=== PATIENT | female | born 1940 ===

== ENCOUNTER 2020-09-11 08:41 | Outpatient (REF) | payer MEDICARE, SELFPAY ==
[2020-09-11 10:25] LABS: MANUAL DIFF FLAG NO
[2020-09-11 10:35] LABS: Basophils Absolute Auto 0.1 X10*3/uL (0.0-0.2); Basophils Percent Auto 1.4 % (0-2); Eosinophils Absolute Auto 0.6 X10*3/uL (0.0-0.4); Eosinophils Percent Auto 12.4 % (0-4); Hemoglobin 11.4 g/dl (12.0-16.0); Imm Gran Abs Auto 0.02 X10*3/uL (0.00-0.03); Imm Gran Pct Auto 0.4 % (0.0-0.4); Lymphocytes Absolute Auto 1.2 X10*3/uL (1.2-4.9); Lymphocytes Percent Auto 23.8 % (20-40); Mean Corpuscular HGB Conc 31.7 g/dl (31.0-35.0); Mean Corpuscular Hemoglobin 31.7 pg (27.0-33.0); Mean Platelet Volume 9.7 fL (9.4-12.3); Monocytes Absolute Auto 0.4 X10*3/uL (0.1-1.2); Monocytes Percent Auto 8.1 % (2-11); Neutrophils Absolute Auto 2.8 X10*3/uL (2.0-8.3); Neutrophils Percent Auto 53.9 % (45-73); Platelet Count 350 X10*3/uL (160-400); Red Cell Distribution Width 14.2 % (11.0-16.0); White Blood Count 5.1 X10*3/uL (4.8-10.8)
[2020-09-11 11:05] LABS: Glucose Urine UA NEG (NEG); Leukocyte Esterase Urine 1+ (NEG); Nitrite Urine NEG (NEG); Urine Blood TRACE (NEG); Urine Ketones NEG (NEG); Urine Protein NEG (NEG-TRACE)
[2020-09-11 11:12] LABS: Appearance Urine HAZY; Color Urine YELLOW
[2020-09-11 11:20] LABS: Alanine Aminotransferase 25 U/L (0-31); Albumin Level 4.2 g/dL (3.5-5.0); Alkaline Phosphatase 65 U/L (39-117); Anion Gap 14 (12-20); Aspartate Amino Transferase 26 U/L (5-31); Bilirubin Total 0.5 mg/dL (0.0-1.0); Blood Urea Nitrogen 28 mg/dL (9-16); Calcium 9.1 mg/dL (8.4-10.2); Carbon Dioxide 25 mmol/L (22-29); Chloride 106 mmol/L (96-108); Cholesterol 171 mg/dL; Estimated Glomerular Filt Rate 55; Glucose Random 103 mg/dL (60-115); HDL Cholesterol 72 mg/dL; LDL Cholesterol Calculated 81 mg/dl; Potassium 4.4 mmol/L (3.3-5.1); Sodium 141 mmol/L (135-145); Total Protein 7.1 g/dL (6.5-8.0); Triglycerides 92 mg/dL
[2020-09-11 11:22] LABS: Bacteria Urine 4+ /LPF; RBC Urine 0-2 /HPF (0); Squamous Epithelial Cell Urine TRACE /LPF
[2020-09-11 11:29] LABS: Free T4 (Free Thyroxine) 0.98 ng/dL (0.71-1.85); Thyroid Stimulating Hormone 1.39 uIU/mL (0.32-4.0); Vitamin D 25-OH Total 39.6 ng/mL (>30)
[2020-09-11 12:01] LABS: Folate 17.6 ng/mL (> or = 4.0); Vitamin B12 373 pg/mL (200-900)
[2020-09-12 05:32] LABS: CA-125 8 U/mL (<35)
== END 2020-09-11 08:42 | disposition home or self-care (01) ==
LOC: HO.10HDL 08:41
PROVIDERS: Absent Provider Obstetrics & Gynecology; Visit Provider Internal Medicine
DX: I10 Essential (primary) hypertension (principal); E78.00 Pure hypercholesterolemia, unspecified; Z80.41 Family history of malignant neoplasm of ovary
CPT/HCPCS: 36415; 80053; 80061; 81001; 82306; 82607; 82746; 84439; 84443; 85025; 86304

== ENCOUNTER 2021-02-12 09:25 | Outpatient (REF) | payer MEDICARE, SELFPAY ==
--- NOTE | ~2021-02-12 | MM_ITS ---
EXAMINATION: BONE DENSITOMETRY CLINICAL INDICATION: Asymptomatic menopausal state. COMPARISON: Previous BD dated 08/04/2017 and baseline BD dated 07/16/2005. TECHNIQUE: Using a [employer] DXA System (software version: 13.1) manufactured by [employer], dual-energy x-ray absorptiometry was performed of the lumbar spine and left hip. The images are of good technical quality. Summary results are attached. FINDINGS: AP SPINE L3-L4 (excluding L1 and L2): The data of L1-L4 has been changed to exclude the L1 and L2 vertebral bodies, because degenerative changes at these levels may cause overestimation of lumbar spine density. Current: BMD 1.433 g/cm2, Z-score 3.6, T-score 1.9, normal, 2.5% decrease from previous, 5.8% increase from baseline (<5% change is not significant). Prior: BMD 1.469 g/cm2. Baseline: BMD 1.354 g/cm2. LEFT FEMUR, NECK: Current: BMD 0.773 g/cm2, Z-score 0.2, T-score -1.9, osteopenia. Prior: BMD 0.779 g/cm2. Baseline: BMD 0.885 g/cm2. LEFT FEMUR, TOTAL: Current: BMD 0.841 g/cm2, Z-score 0.6, T-score -1.3, osteopenia, 3.2% decrease from previous, 9.1% decrease from baseline (<5% change is not significant). Prior: BMD 0.869 g/cm2. Baseline: BMD 0.925 g/cm2. IDENTIFIED RISK FACTORS: Menopause, height loss. HISTORY OF FRACTURE: None listed. MEDICATIONS: Vitamin D. MM/XR DEXA axial skeleton IMPRESSION: 1. DIAGNOSIS: Osteopenia based on the lowest T-score value of -1.9 in the femoral neck applying World Health Organization criteria. 2. 10-YEAR FRACTURE RISK PREDICTION, FRAX: Major osteoporotic fracture (clinical spine, forearm, hip or shoulder) 15.7%. Hip fracture 4.5%. 3. Treatment Recommendations: NOF guidelines recommend consideration for treatment in postmenopausal women and men age 50 and older presenting with the following: -A hip or vertebral (clinical or morphometric) fracture. -T-score less than or equal to -2.5 at the femoral neck or spine after appropriate evaluation to exclude secondary causes. -Low bone mass at the hip or spine and a 10-year fracture probability by FRAX of greater than or equal to 3% for hip fracture or greater than or equal to 20% for major osteoporotic fracture based on the [place] adapted WHO algorithm. 4. Other Recommendations: All treatment decisions require clinical judgment and consideration of individual patient factors, including patient preferences, comorbidities, previous drug use, risk factors not captured in the FRAX model (e.g. frailty, falls, vitamin D deficiency, increased bone turnover, interval significant decline in bone density) and possible under or overestimation of fracture risk by FRAX. Additional medical evaluation for secondary cause of low bone mineral density may be appropriate. FUTURE SCAN RECOMMENDATION: People with diagnosed cases of osteoporosis or at high risk for fracture should have regular bone mineral density tests. For patients eligible for Medicare, routine testing is allowed once every 2 years. The testing frequency can be increased to one year for patients who have rapidly progressing disease, those who are receiving or discontinuing medical therapy to restore bone mass, or have additional risk factors.
== END 2021-02-12 09:26 | disposition home or self-care (01) ==
LOC: HO.MAMMO 09:25
PROVIDERS: PCP Internal Medicine; Visit Provider Nurse Practitioner Family
DX: Z13.820 Encounter for screening for osteoporosis (principal); M81.0 Age-related osteoporosis without current pathological fracture; Z78.0 Asymptomatic menopausal state; Z79.899 Other long term (current) drug therapy
CPT/HCPCS: 77080

== ENCOUNTER 2021-04-07 08:03 | Outpatient (REF) | payer MEDICARE, SELFPAY ==
[2021-04-07 10:33] LABS: Appearance Urine HAZY; Color Urine YELLOW; Glucose Urine UA NEG (NEG); Leukocyte Esterase Urine 1+ (NEG); Nitrite Urine NEG (NEG); PH 5.5 (5.0-8.0); Specific Gravity - Urine 1.025 (1.005-1.025); Urine Blood TRACE (NEG); Urine Ketones NEG (NEG); Urine Protein NEG (NEG-TRACE)
[2021-04-07 10:35] LABS: Hematocrit 36.2 % (37-47); Hemoglobin 11.5 g/dl (12.0-16.0); Mean Corpuscular HGB Conc 31.8 g/dl (31.0-35.0); Mean Corpuscular Hemoglobin 31.9 pg (27.0-33.0); Mean Corpuscular Volume 100.6 fL (80-98); Mean Platelet Volume 9.9 fL (9.4-12.3); Platelet Count 382 X10*3/uL (160-400); Red Cell Distribution Width 14.4 % (11.0-16.0); White Blood Count 6.1 X10*3/uL (4.8-10.8)
[2021-04-07 10:50] LABS: Bacteria Urine 4+ /LPF; RBC Urine 0-2 /HPF (0); Squamous Epithelial Cell Urine TRACE /LPF; WBC Urine 50-75 /HPF (0-4)
[2021-04-07 11:25] LABS: Alanine Aminotransferase 23 U/L (0-31); Albumin Level 4.3 g/dL (3.5-5.0); Alkaline Phosphatase 69 U/L (39-117); Anion Gap 14 (12-20); Aspartate Amino Transferase 23 U/L (5-31); Bilirubin Total 0.5 mg/dL (0.0-1.0); Blood Urea Nitrogen 31 mg/dL (9-16); Carbon Dioxide 24 mmol/L (22-29); Chloride 108 mmol/L (96-108); Cholesterol 176 mg/dL; Estimated Glomerular Filt Rate 50; Glucose Fasting 109 mg/dL (60-99); HDL Cholesterol 79 mg/dL; LDL Cholesterol Calculated 83 mg/dl; Potassium 4.6 mmol/L (3.3-5.1); Sodium 141 mmol/L (135-145); Total Protein 7.3 g/dL (6.5-8.0); Triglycerides 73 mg/dL
== END 2021-04-07 08:04 | disposition home or self-care (01) ==
LOC: HO.10HDL 08:03
PROVIDERS: Internal Medicine; Visit Provider Nurse Practitioner Family
DX: Z13.1 Encounter for screening for diabetes mellitus (principal); E78.00 Pure hypercholesterolemia, unspecified; I10 Essential (primary) hypertension
CPT/HCPCS: 36415; 80053; 80061; 81001; 85027

== ENCOUNTER 2021-04-17 10:22 | Outpatient (REF) | payer MEDICARE, SELFPAY ==
--- NOTE | ~2021-04-17 | XR_ITS ---
EXAMINATION: XR CHEST CLINICAL INFORMATION: Shortness of breath COMPARISON: Previous chest x-ray most recent June 2016 TECHNIQUE: 2 views of the chest were obtained. FINDINGS: The cardiac and mediastinal contours are normal. There is minimal scarring or subsegmental atelectasis in the right middle lobe. The lungs are otherwise clear. There is no pleural effusion or pneumothorax. There are degenerative changes of the spine. XR/XR chest 2V IMPRESSION: No evidence for acute disease in the chest.
--- NOTE | 2021-04-17 10:29 | ECG_ITS ---
Test Reason : sob Blood Pressure : / mmHG Vent. Rate : 095 BPM Atrial Rate : 095 BPM P-R Int : 146 ms QRS Dur : 080 ms QT Int : 342 ms P-R-T Axes : 062 060 103 degrees QTc Int : 429 ms Normal sinus rhythm Nonspecific ST abnormality Inferior leads Lateral leads Abnormal ECG When compared with ECG of 02-APR-2015 14:17, ST more depressed Inferior leads Lateral leads Referred By: Lucas Moore Electronically Signed By:DYLAN CHAVEZ MD
== END 2021-04-17 10:23 | disposition home or self-care (01) ==
LOC: HO.XRAY 10:22
PROVIDERS: PCP Internal Medicine; Visit Provider Internal Medicine
DX: R06.02 Shortness of breath (principal)
CPT/HCPCS: 71046; 93005

== ENCOUNTER 2021-04-24 09:38 | Outpatient (REF) | payer MEDICARE, SELFPAY ==
--- NOTE | 2021-04-24 | PFT_ITS ---
Forced vital capacity, FEV1, [id number], and MVV are normal. Post bronchodilator therapy, there is no significant change. Total lung capacity and residual volume normal. Diffusion capacity normal. CONCLUSION: Normal pulmonary function test. MD JEFF Romero/MODL / [id number]
== END 2021-04-24 09:39 | disposition home or self-care (01) ==
LOC: HO.RESP 09:38
PROVIDERS: PCP Internal Medicine; Visit Provider Internal Medicine
DX: R06.02 Shortness of breath (principal)
CPT/HCPCS: 94060; 94727; 94729

== ENCOUNTER → 2021-08-03 13:45 | Outpatient (BNVA) | payer MEDICARE, SELFPAY | PROVIDERS: PCP Internal Medicine; Referring Provider Internal Medicine; Visit Provider Internal Medicine Cardiovascular Disease | DX: R06.02 Shortness of breath (principal); I10 Essential (primary) hypertension | CPT/HCPCS: 93005; 99202 ==

== ENCOUNTER 2021-08-06 10:40 | Outpatient (REF) | payer MEDICARE, SELFPAY ==
[2021-08-07 09:01] LABS: CA-125 10 U/mL (<35)
== END 2021-08-06 10:41 | disposition home or self-care (01) ==
LOC: HO.10HDL 10:40
PROVIDERS: Absent Provider Internal Medicine; Visit Provider Obstetrics & Gynecology
DX: Z85.43 Personal history of malignant neoplasm of ovary (principal)
CPT/HCPCS: 36415; 86304

== ENCOUNTER → 2021-09-16 08:29 | Outpatient (REF) | payer MEDICARE, SELFPAY ==
--- NOTE | 2021-09-16 08:31 | CA_ITS ---
Transthoracic Echocardiogram Patient (Last, First, Middle): Diana Hemphill G Gender: Female Date of : 1940 Age: 80 Procedure Date: 09/16/2021 Procedure Type: Transthoracic Echocardiogram Location: OP Height: 170.18 cm Weight: 68.95 kg BSA: 1.80 m2 Heart Rate: bpm BP: 150 / 70 mmHg Rating Officer: DELTA Referring MD: Juventino Peck MD Symptoms: R06.02 - Shortness of breath Study Quality: Fair Conclusions: - Normal left ventricular size, thickness, systolic function, and wall motion. The visually estimated ejection fraction is between 60-65%. - E/E prime ratio is between 8 and 15 consistent with indeterminate filling pressures. - Normal right ventricular cavity size and systolic function. Findings Left Ventricle Normal left ventricular size, thickness, systolic function, and wall motion. The visually estimated ejection fraction is between 60-65%. There is no evidence of regional wall motion abnormalities. Abnormal diastolic function is noted. Spectral Doppler is indicative of an impaired relaxation filling pattern. E/E prime ratio is between 8 and 15 consistent with indeterminate filling pressures. Right Ventricle Normal right ventricular cavity size and systolic function. Atria Both atria are normal in size. Aortic Valve Normal aortic valve structure and function. There is no aortic valve stenosis. There is no aortic valve regurgitation. Mitral Valve Normal mitral valve structure and function. There is no mitral valve regurgitation. There is no mitral valve stenosis. Pulmonic Valve The pulmonic valve is likely normal. There is no pulmonic valve regurgitation. Tricuspid Valve Normal tricuspid valve structure and function. There is trace tricuspid valve regurgitation. Normal right atrial pressure. There is no evidence of pulmonary hypertension. Great Vessels All visible segments of the aorta are normal in size. The visualized portions of the pulmonary artery and branches are normal. Venous The inferior vena cava is normal in size and collapses greater than 50% with inspiration. Pericardium/Pleural There is no evidence of pericardial effusion. Measurements 2D Linear Measurements IVSd: 0.76 0.6-0.9/0.6-1.0 cm LVIDd: 5.14 3.9-5.3/4.2-5.9 cm LVIDd Index: 2.86 2.4-3.2/2.2-3.1 cm/m2 LVIDs: 3.14 2.0-3.6 cm LVPWd: 0.78 0.7-1.1 cm LA Diam: 3.70 2.7-3.8/3.0-4.0 cm LAIDs Index: 2.06 1.5-2.3 cm/m2 LV Mass: 168.35 67-162/88-224 g LV Mass Index: 93.53 43-95/49-115 g/m2 LVOT Diam: 2.00 3.0+(-)1.3 cm 2D Systolic Function EF 4C: 63.00 >55% EF 2C: 69.20 >55% EF BiP: 65.90 >55% Mitral Valve MV Pk E: 0.99 MV PK A: 1.27 MV Decel Time: 227.00 E/A: 0.80 E'Lateral: 9.03 E'Medial: 6.42 E/E' Med: 15.50 E/E' Lat: 11.00 PHT: 67.00 MVA PHT: 3.28 Decel [place]: 4.36 Aortic Valve AoV Pk Harjinder: 1.40 AoV Mn Harjinder: 1.03 AoV VTI: 0.37 AoV Pk Grad: 8.00 Aov Mn Grad: 5.00 SALLIE Cont.VTI: 2.05 LVOT LVOT Pk Harjinder: 0.82 LVOT Mn Harjinder: 0.64 LVOT VTI: 0.24 LVOT Pk Grad: 3.00 LVOT Mn Grad: 2.00 LVOT Diam: 2.00 LVOT Area: 3.14 Diastolic Function MV Pk E: 0.99 MV Pk A: 1.27 E/A: 0.80 E'Medial: 6.42 E/E' Med: 15.50 E' Laterial: 9.03 E/E' Lat: 11.00 Right Ventricle TAPSE (mm): 22.70 TVS' Harjinder: 13.90 Tricuspid Valve TR Pk Harjinder: 2.66 TR Pk Grad: 28.00 RA Press: 3.00 RVSP: 31.00 Great Vessels Aorta Sinus of Valsalva: 2.96 2.0-3.[address] [place]: 1.99 1.7-3.4 cm Ao Asc: 2.80 2.1-3.4 cm Ao Arch: 3.00 Updated in Other Vendor System with Status of Final Juventino Peck MD electronically signed on 09/16/2021 2:15:45 PM with status of Final
== END ==
LOC: HO.CARD 08:29
PROVIDERS: PCP Internal Medicine; Visit Provider Internal Medicine Cardiovascular Disease
DX: R06.02 Shortness of breath (principal); I10 Essential (primary) hypertension
CPT/HCPCS: 93306; 99212

== ENCOUNTER → 2021-10-06 07:53 | Outpatient (REF) | payer MEDICARE, SELFPAY ==
--- NOTE | ~2021-10-06 | NM_ITS ---
EXERCISE MYOCARDIAL PERFUSION STUDY INDICATION: Shortness of breath, assess for ischemia TECHNIQUE: The patient was brought in for an exercise perfusion study on 10/06/2021. Patient performed exercise as per Kristian protocol and was injected 25 mCi of sestamibi once target heart rate was achieved. Images were obtained using the SPECT gamma camera interlaced with the gating device. Images were obtained in supine position. Resting perfusion study was performed on 10/07/2021. Patient was administered 25 mCi of sestamibi intravenously at rest. Images were then obtained in supine position. Total DLP 77mGy-cm. Images were processed with the software and compared side to side in short axis, horizontal long axis and vertical long axis views. FINDINGS: Raw images were reviewed. The stress perfusion study showed no significant perfusion abnormality. Both uncorrected as well as CT attenuation corrected images were reviewed. The gated study shows normal LV systolic function with calculated LVEF of 67%. LV cavity is normal in size. The gated study shows normal wall thickening and contraction of segments. Resting study shows no significant perfusion abnormality. Gating at rest reveals normal wall motion with ejection fraction at 62%. The findings are consistent with no reversible or fixed perfusion abnormality. NM/NM cardiolite stress test IMPRESSION: 1. Myocardial perfusion imaging study shows normal myocardial perfusion. No evidence of any ischemia or infarction. 2. Gated LVEF is 67% during stress and 62% during rest. 3. Transient ischemic dilatation not present. EKG component of the test reported separately.
--- NOTE | 2021-10-06 07:56 | CA_ITS ---
Acquisition Time: 2021-10-06 07:55:31 Total Exercise Time: 00:05:01 Test Indications: Dyspnea Medications: AMLODIPINE ASA CARVEDILOL HCTZ VIT D LISINOPRIL ROSUVASTATIN Protocol: NICK Max HR: 141 BPM 100% of Pred: 140 BPM Max BP: 158/072 mmHG Max Work Load: 4.6 METS Exercise stress test with exercise 5 min 1 sec of Nick stage ( stage held due to inability to walk at faster pace and heart rate > 95% MPHR) with mild to moderate shortness of breath, no chest discomfort, with isolated PVC, with normotensive response to exercise, with EKG changes eeting criteria for ischemia: horizontal ST depression inferiorly and V4-V6 which corrects quickly in recovery and returns to baseline downsloping ST V4-V6. Breathing normalized with rest. Nuclear images pending. Test reviewed with Dr Lomas. Referred By: Juventino Peck Overread By: SABA RICHMOND
== END ==
LOC: HO.CARD 07:53
PROVIDERS: PCP Internal Medicine; Visit Provider Internal Medicine Cardiovascular Disease
DX: R06.02 Shortness of breath (principal)
CPT/HCPCS: 78452; 93017; A9500

== ENCOUNTER 2021-10-22 08:35 | Outpatient (REF) | payer MEDICARE, SELFPAY ==
[2021-10-22 08:59] LABS: MANUAL DIFF FLAG NO
[2021-10-22 09:20] LABS: Basophils Absolute Auto 0.1 X10*3/uL (0.0-0.2); Basophils Percent Auto 1.2 % (0-2); Eosinophils Absolute Auto 0.3 X10*3/uL (0.0-0.4); Eosinophils Percent Auto 5.1 % (0-4); Hematocrit 35.1 % (37.0-47.0); Hemoglobin 11.3 g/dl (12.0-16.0); Imm Gran Abs Auto 0.01 X10*3/uL (0.00-0.03); Imm Gran Pct Auto 0.2 % (0.0-0.4); Lymphocytes Absolute Auto 1.6 X10*3/uL (1.2-4.9); Lymphocytes Percent Auto 25.7 % (20-40); Mean Corpuscular HGB Conc 32.2 g/dl (31.0-35.0); Mean Corpuscular Hemoglobin 31.6 pg (27.0-33.0); Mean Platelet Volume 9.3 fL (9.4-12.3); Monocytes Absolute Auto 0.6 X10*3/uL (0.1-1.2); Monocytes Percent Auto 9.7 % (2-11); Neutrophils Absolute Auto 3.5 x10*3/uL (2.0-8.3); Neutrophils Percent Auto 58.1 % (45-73); Platelet Count 333 X10*3/uL (160-400); Red Blood Count 3.58 X10*6/uL (4.20-5.50); Red Cell Distribution Width 14.9 % (11.0-16.0); White Blood Count 6.1 X10*3/uL (4.8-10.8)
[2021-10-22 09:51] LABS: Anion Gap 14 (12-20); Blood Urea Nitrogen 29 mg/dL (9-16); Calcium 9.2 mg/dL (8.4-10.2); Carbon Dioxide 23 mmol/L (22-29); Chloride 107 mmol/L (96-108); Estimated Glomerular Filt Rate > 60; Glucose Random 119 mg/dL (60-115); Potassium 5.1 mmol/L (3.3-5.1); Sodium 139 mmol/L (135-145)
== END 2021-10-22 08:36 | disposition home or self-care (01) ==
LOC: HO.LAB 08:35
PROVIDERS: PCP Internal Medicine; Visit Provider Internal Medicine Cardiovascular Disease
DX: R06.02 Shortness of breath (principal)
CPT/HCPCS: 36415; 80048; 85025

== ENCOUNTER → 2021-11-19 13:25 | Outpatient (BNVA) | payer MEDICARE, SELFPAY | PROVIDERS: PCP Internal Medicine; Referring Provider Internal Medicine; Visit Provider Nurse Practitioner Family | DX: R06.02 Shortness of breath (principal); I10 Essential (primary) hypertension; I25.10 Atherosclerotic heart disease of native coronary artery without angina pectoris; E78.00 Pure hypercholesterolemia, unspecified; Z98.890 Other specified postprocedural states | CPT/HCPCS: Q3014 ==

== ENCOUNTER 2021-12-22 11:44 | Outpatient (REF) | payer MEDICARE, SELFPAY ==
[2021-12-22 13:46] LABS: MANUAL DIFF FLAG NO
[2021-12-22 13:49] LABS: Basophils Percent Auto 0.4 % (0-2); Eosinophils Absolute Auto 0.8 X10*3/uL (0.0-0.4); Eosinophils Percent Auto 10.2 % (0-4); Hematocrit 37.9 % (37.0-47.0); Imm Gran Abs Auto 0.04 X10*3/uL (0.00-0.03); Imm Gran Pct Auto 0.5 % (0.0-0.4); Lymphocytes Absolute Auto 0.7 X10*3/uL (1.2-4.9); Lymphocytes Percent Auto 9.4 % (20-40); Mean Corpuscular HGB Conc 31.7 g/dl (31.0-35.0); Mean Corpuscular Hemoglobin 31.4 pg (27.0-33.0); Mean Corpuscular Volume 99.2 fL (80.0-98.0); Mean Platelet Volume 10.4 fL (9.4-12.3); Monocytes Absolute Auto 0.4 X10*3/uL (0.1-1.2); Monocytes Percent Auto 5.7 % (2-11); Neutrophils Absolute Auto 5.5 x10*3/uL (2.0-8.3); Neutrophils Percent Auto 73.8 % (45-73); Platelet Count 279 X10*3/uL (160-400); Red Blood Count 3.82 X10*6/uL (4.20-5.50); Red Cell Distribution Width 14.9 % (11.0-16.0); White Blood Count 7.5 X10*3/uL (4.8-10.8)
[2021-12-22 14:20] LABS: Anion Gap 13 (12-20); Blood Urea Nitrogen 55 mg/dL (9-16); Calcium 8.9 mg/dL (8.4-10.2); Carbon Dioxide 22 mmol/L (22-29); Chloride 105 mmol/L (96-108); Estimated Glomerular Filt Rate 45; Glucose Random 127 mg/dL (60-115); Potassium 4.4 mmol/L (3.3-5.1); Sodium 136 mmol/L (135-145)
== END 2021-12-22 11:45 | disposition home or self-care (01) ==
LOC: HO.10HDL 11:44
PROVIDERS: Visit Provider Nurse Practitioner Family
DX: I10 Essential (primary) hypertension (principal); T78.40XA Allergy, unspecified, initial encounter
CPT/HCPCS: 36415; 80048; 85025

== ENCOUNTER 2021-12-29 10:14 | Outpatient (REF) | payer MEDICARE, SELFPAY ==
[2021-12-31 09:27] LABS: Lyme Abs Screen <0.90 index
== END 2021-12-29 10:15 | disposition home or self-care (01) ==
LOC: HO.10HDL 10:14
PROVIDERS: Visit Provider Nurse Practitioner Family
DX: R21 Rash and other nonspecific skin eruption (principal)
CPT/HCPCS: 36415; 86617; 86618

== ENCOUNTER 2022-01-19 09:22 | Outpatient (REF) | payer MEDICARE, SELFPAY ==
[2022-01-19 10:51] LABS: Appearance Urine CLEAR; Color Urine YELLOW; Glucose Urine UA NEG (NEG); Leukocyte Esterase Urine 1+ (NEG); Nitrite Urine NEG (NEG); Urine Blood NEG (NEG); Urine Ketones NEG (NEG); Urine Protein NEG (NEG-TRACE)
[2022-01-19 10:53] LABS: Basophils Percent Auto 0.6 % (0-2); Eosinophils Absolute Auto 1.6 X10*3/uL (0.0-0.4); Eosinophils Percent Auto 24.5 % (0-4); Hematocrit 35.9 % (37.0-47.0); Hemoglobin 11.5 g/dl (12.0-16.0); Imm Gran Abs Auto 0.02 X10*3/uL (0.00-0.03); Imm Gran Pct Auto 0.3 % (0.0-0.4); Lymphocytes Percent Auto 15.6 % (20-40); MANUAL DIFF FLAG SCAN; Mean Corpuscular Hemoglobin 32.2 pg (27.0-33.0); Mean Corpuscular Volume 100.6 fL (80.0-98.0); Mean Platelet Volume 9.8 fL (9.4-12.3); Monocytes Absolute Auto 0.5 X10*3/uL (0.1-1.2); Monocytes Percent Auto 7.1 % (2-11); Neutrophils Absolute Auto 3.4 x10*3/uL (2.0-8.3); Neutrophils Percent Auto 51.9 % (45-73); Platelet Count 350 X10*3/uL (160-400); Red Blood Count 3.57 X10*6/uL (4.20-5.50); Red Cell Distribution Width 15.9 % (11.0-16.0); SCAN SMEAR FLAG 1; White Blood Count 6.5 X10*3/uL (4.8-10.8)
[2022-01-19 11:28] LABS: Renal Epithelial Cells Urine TRACE /LPF; Squamous Epithelial Cell Urine 1+ /LPF
[2022-01-19 11:29] LABS: WBC Urine 0-2 /HPF (0-4)
[2022-01-19 11:30] LABS: Granular Casts Urine 0-2 /LPF
[2022-01-19 11:31] LABS: Bacteria Urine TRACE /LPF; Hyaline Casts Urine 0-2 /LPF
[2022-01-19 11:45] LABS: Erythrocyte Sedimentation Rate 13 MM/HR (0-20)
[2022-01-19 11:48] LABS: SLIDE REVIEW VERIFIED
[2022-01-19 11:51] LABS: Alanine Aminotransferase 19 U/L (0-31); Albumin Level 3.9 g/dL (3.5-5.0); Alkaline Phosphatase 63 U/L (39-117); Anion Gap 13 (12-20); Aspartate Amino Transferase 21 U/L (5-31); Bilirubin Total 0.4 mg/dL (0.0-1.0); Blood Urea Nitrogen 29 mg/dL (9-16); Calcium 8.7 mg/dL (8.4-10.2); Carbon Dioxide 21 mmol/L (22-29); Chloride 109 mmol/L (96-108); Estimated Glomerular Filt Rate 59; Glucose Random 100 mg/dL (60-115); Potassium 4.4 mmol/L (3.3-5.1); Sodium 139 mmol/L (135-145); Total Protein 6.4 g/dL (6.5-8.0)
== END 2022-01-19 09:23 | disposition home or self-care (01) ==
LOC: HO.10HDL 09:22
PROVIDERS: Visit Provider Dermatology
DX: T88.7XXA Unspecified adverse effect of drug or medicament, initial encounter (principal); Z79.899 Other long term (current) drug therapy
CPT/HCPCS: 36415; 80053; 81001; 85025; 85652

== ENCOUNTER 2022-04-21 09:14 | Outpatient (REF) | payer MEDICARE, SELFPAY ==
[2022-04-21 12:05] LABS: Blood Urea Nitrogen 45 mg/dL (9-16); Estimated Glomerular Filt Rate 44
[2022-04-21 12:06] LABS: Free T4 (Free Thyroxine) 0.99 ng/dL (0.71-1.85); Thyroid Stimulating Hormone 0.59 uIU/mL (0.32-4.0)
[2022-04-23 22:16] LABS: Prot Elec - Albumin 3.7 g/dL (3.8-4.8); Prot Elec - Alpha1 0.4 g/dL (0.2-0.3); Prot Elec - Alpha2 0.8 g/dL (0.5-0.9); Prot Elec - Beta 1 0.4 g/dL (0.4-0.6); Prot Elec - Beta 2 0.5 g/dL (0.2-0.5); Prot Elec - Total Protein 6.8 g/dL (6.1-8.1)
[2022-04-27 14:48] LABS: IgA 415 mg/dL (70-320); IgG 1129 mg/dL (600-1540); IgM 88 mg/dL (50-300)
== END 2022-04-21 09:15 | disposition home or self-care (01) ==
LOC: HO.10HDL 09:14
PROVIDERS: Absent Provider Internal Medicine; Visit Provider Dermatology
DX: Z13.89 Encounter for screening for other disorder (principal)
CPT/HCPCS: 36415; 82565; 82784; 84165; 84439; 84443; 84520; 86334

== ENCOUNTER 2022-04-22 08:22 | Inpatient (IN) | payer MEDICARE, SELFPAY ==
[2022-04-22] VITALS (18 sets, daily range): BP systolic 135–196; BP diastolic 51–110; PULSE 66–108; RESP 13–19; TEMP 36.6–36.9; O2SAT 93–98; BMI 11.2
--- NOTE | ~2022-04-22 | MR_ITS ---
MRI OF THE BRAIN WITHOUT IV CONTRAST INDICATION: Speech deficit. COMPARISON: Head CT April 22, 2022. TECHNIQUE: Multiplanar multisequence MR imaging of the brain was obtained without IV contrast. FINDINGS: Partially nondiagnostic MRI of the brain due to significant motion artifact. No definite acute infarcts accounting for artifact. The blood sensitive gradient series is nondiagnostic. There is global cerebral volume loss and there is moderate chronic microangiopathy. There is no hydrocephalus, extra-axial surface collection, or herniation. The major flow voids at the skull base are preserved. The cerebellar tonsils are normally positioned. There is a partially empty sella. The cerebellum and brainstem are normal. The craniocervical junction is normal. MR/MR head/brain wo con IMPRESSION: Partially nondiagnostic MRI of the brain due to significant motion artifact. No definite acute infarcts accounting for artifact. The blood sensitive gradient series is nondiagnostic. There is global cerebral volume loss and there is moderate chronic microangiopathy.
--- NOTE | ~2022-04-22 | CT_ITS ---
EXAMINATION: CT HEAD WITHOUT CONTRAST (STROKE PROTOCOL) CLINICAL INFORMATION: Stroke protocol. Speech abnormality COMPARISON: None TECHNIQUE: Contiguous axial imaging was performed from the skull base to vertex without intravenous administration of contrast. This CT examination was performed using dose optimization techniques as appropriate, variously including the following: *Automated exposure control *Adjustment of mA and/or kV according to patient size (this includes techniques or standardized protocols for targeted exams where dose is matched to indication/reason for exam; i.e. extremities or head) *Use of iterative reconstruction technique DLP: 623 mGy-cm FINDINGS: There is no acute intra-axial, extra-axial bleed, masses or midline shift. There is no acute infarction evolution. There is no edema. The tatum to white matter differentiation is maintained normal. The lateral ventricles are symmetrical but enlarged. There is periventricular hypodensity in both cerebral hemispheres. Bone windows reveal no calvarial abnormality. There is no scalp soft tissue abnormality. The paranasal sinuses and mastoid air cells are well-aerated. CT/CT head for stroke IMPRESSION: No acute intracranial process seen. Age-related cerebral volume loss with chronic small vessel ischemic changes. This critical result was discussed with Dr. Diana Chowdhury in ER at 9:00 AM by phone. It was ascertained that the content and urgency of the report was understood at the time of direct communication.
--- NOTE | ~2022-04-22 | XR_ITS ---
EXAMINATION: XR CHEST CLINICAL INFORMATION: Cough. COMPARISON: Chest 04/29/2021 TECHNIQUE: Frontal view of the chest was obtained. FINDINGS: The lungs are well-expanded and clear acute pneumonic process. Heart size and pulmonary vascularity is normal. No gross bony abnormality seen. XR/XR chest 1V IMPRESSION: Unremarkable chest examination.
--- NOTE | ~2022-04-22 | CT_ITS ---
EXAMINATION: CT HEAD WITHOUT CONTRAST (STROKE PROTOCOL) CLINICAL INFORMATION: Stroke protocol. COMPARISON: CT brain performed earlier today at 8:51 AM and MRI brain 10:40 AM. TECHNIQUE: Contiguous axial imaging was performed from the skull base to vertex without intravenous administration of contrast. This CT examination was performed using dose optimization techniques as appropriate, variously including the following: *Automated exposure control *Adjustment of mA and/or kV according to patient size (this includes techniques or standardized protocols for targeted exams where dose is matched to indication/reason for exam; i.e. extremities or head) *Use of iterative reconstruction technique DLP: 720 mGy-cm FINDINGS: Since the last CT and MR brain parenchyma earlier today there is new right basal ganglia/external capsule acute hemorrhage with mild surrounding edema but no midline shift seen. There is a right parietal curvilinear density on one image 26/3 likely artifact No extra-axial bleed, masses or collection. The lateral ventricles are symmetrical in size but moderately enlarged. Mild periventricular hypodensity seen throughout both cerebral hemispheres. CT/CT head for stroke IMPRESSION: Acute right basal ganglia/external capsule hematoma. The hematoma is a oval-shaped and measures 2.3 cm in maximum dimension image 21/3. No midline shift or major edema. The hematoma is new since the earlier CT and MRI brain scans. Moderate cerebral volume loss with chronic small vessel ischemic changes in both cerebral hemispheres.. This critical result was discussed with Dr. Diana Chowdhury in ED 3:20 PM on 04/22/2022. It was ascertained that the content and urgency of the report was understood at the time of direct communication.
--- NOTE | 2022-04-22 08:36 | ECG_ITS ---
Test Reason : chest pain Blood Pressure : / mmHG Vent. Rate : 070 BPM Atrial Rate : 070 BPM P-R Int : 142 ms QRS Dur : 072 ms QT Int : 380 ms P-R-T Axes : 067 057 070 degrees QTc Int : 410 ms Normal sinus rhythm with sinus arrhythmia Normal ECG When compared with ECG of 17-APR-2021 10:36, T wave inversion no longer evident in Lateral leads Referred By: Diana Chowdhury Electronically Signed By:DYLAN CHAVEZ MD
--- NOTE | 2022-04-22 08:40 | ED_ITS ---
HPI - Neuro Symptoms/Deficit General Chief Complaint: Stroke Stated Complaint: ?TIA, SEVER HEADACHE Time Seen by Provider: 04/22/22 08:26 Source: patient and EMS Mode of arrival: EMS History of Present Illness HPI Narrative: 81-year-old female arrives via EMS for complaints of speech changes at 07:15 and a history of hypertension for which she is currently hypertensive. EMS stated that her symptoms have completely resolved and that her noted the speech changes. Patient denies any prior history of TIA and currently states that she is having difficulty with her speech. She states that she has not been feeling well for months but then seems to insert words that do not make sense. Related Data Home Medications Medication Instructions Recorded Confirmed cholecalciferol (vitamin D3) 25 25 mcg PO DAILY 09/10/20 04/22/22 mcg (1,000 unit) capsule vitamins A,C,A-rflk-qscqre 14,320 1 cap PO DAILY 04/15/21 04/22/22 unit-226 mg-200 unit capsule (PreserVision AREDS) aspirin 81 mg tablet,delayed 81 mg PO DAILY 08/03/21 04/22/22 release (Adult Aspirin Regimen) cyclosporine modified 100 mg 100 mg PO BEDTIME 03/02/22 04/22/22 capsule cyclosporine modified 100 mg 200 mg PO DAILY 04/22/22 04/22/22 capsule Previous Rx's Medication Instructions Recorded cetirizine 10 mg tablet 10 mg PO DAILY #30 tabs 12/22/21 metoprolol succinate 25 mg 25 mg PO DAILY 30 days #30 tabs 01/13/22 tablet,extended release 24 hr hydrochlorothiazide 25 mg tablet 25 mg PO DAILY #90 tabs 02/12/22 lisinopril 40 mg tablet 40 mg PO DAILY 90 days #90 tabs 02/12/22 trazodone 50 mg tablet 50 mg PO BEDTIME #90 tabs 03/18/22 Allergies Allergy/AdvReac Type Severity Reaction Status Date / Time Penicillins [PENICILLINS] Allergy Severe THROAT Verified 03/02/22 12:50 SWELLS Iodinated Contrast Media Allergy Intermediate Rash Verified 03/02/22 13:04 penicillin V Allergy Unknown Throat Verified 03/02/22 12:50 Swells Review of Systems Review of Systems: Pertinent positives and negatives as stated in HPI 10 point review of systems is otherwise negative. PMFSH Past Medical History Source: nursing notes reviewed Medical History Abnormal cardiac function test GERD (gastroesophageal reflux disease) Hypercholesterolemia Hypertension Insomnia Post-menopausal Surgical History History of cardiac cath History of colonoscopy No pertinent past surgical history Family History Family History Father Heart disease Prostate cancer Colon cancer CVD (cardiovascular disease) Diabetes Mother Ovarian cancer Gout Sister Ovarian cancer Social History Social History Housing: House Alcohol intake: current Alcohol intake frequency: a few times a week Patient Tobacco Use Status: Former Tobacco user Quit Date: 1989 Smoked: 30 +/- e-Cigarette/Vaping Use: Never Used Second Hand Smoke Exposure: No Advance Directives: No Advance Directives Information Provided: Yes Current occupational status: retired Cognitive needs: No Hearing needs: No Vision needs: No Physical Exam Vital Signs: Vital Signs: Last Vital Signs Temp 98 F 04/22/22 08:34 Pulse 70 04/22/22 11:14 Resp 19 04/22/22 11:14 BP 183/74 H 04/22/22 11:14 Pulse Ox 98 04/22/22 11:14 O2 Del Method 04/22/22 11:14 BMI result Body Mass Index 11.2 VITAL SIGNS: Reviewed. GENERAL: Chronically ill, fragile, in no acute distress. HEAD: Normocephalic/atraumatic EYES: PERRLA, EOMI intact without pain, no nystagmus/pallor/icterus noted EARS: Ext canals without abnormality NOSE: Nares patent bilateral OROPHARYNX: no oral lesions noted, posterior pharynx clear NECK: Supple, no adenopathy LUNGS: Normal breath sounds. No adventitious sounds or accessory muscle use. SpO2<98> CARDIOVASCULAR: Regular rate and rhythm without noted murmurs, no JVD or lower extremity edema. ABDOMEN: Soft, non-tender, non-distended with bowel sounds. MUSCULOSKELETAL: No tenderness, deformities, or effusions noted on gross inspection. EXTREMITIES: No cyanosis, clubbing or edema. SKIN: Inspection of the skin reveals no rashes NEUROLOGIC: Alert and oriented x 4. Strength and sensation to light touch were grossly intact x 4, no facial asymmetry, no pronator drift, cranial nerves 2-12 are grossly intact, however significant speech dysarthria and questionable aphasia noted. Course Course Course Narrative: 81-year-old female with history and clinical presentation consistent with str shamar, may be secondary symptoms to hypertensive emergency. On arrival EMS did note the patient's systolic blood pressure was over 200 and is currently 189. Patient is having significant difficulty with her speech as well as having difficulty with word finding. Last known well noted by was 0715, but patient states she awoke with a headache at what she thinks may have been 0530. 0735: Patient in CT scanner and unable to perform CT scan at present, but will be put on CT scanner terrell. Code stroke was called, patient is hypertensive and will receive small dose of labetalol. Patient received aspirin and MRI reading is pending. I discussed this case with the inpatient hospitalist who accepts admission. Reevaluation(s) Reevaluation #1: I discussed the case with Neurology who will see the patient at bedside. Time: 08:58 Reevaluation #2: Dr. Akins called to report that CT of the head, noncontrast is negative for evidence of bleed. Time: 08:59 Reevaluation #3: Dr Chavira recommends that with minimal speech disturbance and no gross motor or sensory deficits would not recommend tPA at this time. Time: 09:06 MDM - Neuro Symptoms/Deficit Lab Data Result diagrams: 04/22/22 09:44 04/22/22 09:44 Labs: Lab Results 04/22/22 04/22/22 04/22/22 Range/Units 08:37 08:55 09:25 WBC RBC Hgb Hct MCV MCH MCHC RDW Plt Count MPV Immature Gran % (Auto) Neut % (Auto) Lymph % (Auto) Crisp % (Auto) Eos % (Auto) Baso % (Auto) Lymph # (Auto) Crisp # (Auto) Eos # (Auto) Baso # (Auto) Abs Immat Gran (auto) Absolute Neuts (auto) Absolute Nucleated RBC Nucleated RBC % (auto) PT Whole Blood PT 11.7 (11.1-13.5) sec INR Whole Blood INR 1.0 (0.9-1.1) APTT (26.0-36.4) SEC Sodium (135-145) mmol/L Potassium (3.3-5.1) mmol/L Chloride (96-108) mmol/L Carbon Dioxide (22-29) mmol/L Anion Gap (12-20) BUN (9-16) mg/dL Creatinine (0.5-1.4) mg/dL Estim Creat Clear Calc Estimated GFR POC Glucose 141 H (60-115) mg/dL Random Glucose (60-115) mg/dL Calcium (8.4-10.2) mg/dL Total Bilirubin (0.0-1.0) mg/dL AST (5-31) U/L ALT (0-31) U/L Alkaline Phosphatase (39-117) U/L Total Creatine Kinase (26-140) U/L Troponin I High Sens B-Natriuretic Peptide (<100) pg/mL Total Protein (6.5-8.0) g/dL Albumin (3.5-5.0) g/dL Urine Color Urine Appearance Urine pH (5.0-9.0) Ur Specific [place] (1.005-1.025) Urine Protein (Neg-Trace) mg/dL Urine Glucose (UA) (Negative) mg/dL Urine Ketones (Negative) mg/dL Urine Blood (Negative) Urine Nitrite (Negative) Ur Leukocyte Esterase (Negative) COVID-19 (REY) Negative (Negative) COVID-19 Clin Com See Note 04/22/22 04/22/22 04/22/22 Range/Units 09:44 09:44 09:44 WBC Cancelled RBC Cancelled Hgb Cancelled Hct Cancelled MCV Cancelled MCH Cancelled MCHC Cancelled RDW Cancelled Plt Count Cancelled MPV Cancelled Immature Gran % (Auto) Cancelled Neut % (Auto) Cancelled Lymph % (Auto) Cancelled Crisp % (Auto) Cancelled Eos % (Auto) Cancelled Baso % (Auto) Cancelled Lymph # (Auto) Cancelled Crisp # (Auto) Cancelled Eos # (Auto) Cancelled Baso # (Auto) Cancelled Abs Immat Gran (auto) Cancelled Absolute Neuts (auto) Cancelled Absolute Nucleated RBC Cancelled Nucleated RBC % (auto) Cancelled PT Cancelled Whole Blood PT (11.1-13.5) sec INR Cancelled Whole Blood INR (0.9-1.1) APTT (26.0-36.4) SEC Sodium 138 (135-145) mmol/L Potassium 4.6 (3.3-5.1) mmol/L Chloride 101 (96-108) mmol/L Carbon Dioxide 25 (22-29) mmol/L Anion Gap 17 (12-20) BUN 45 H (9-16) mg/dL Creatinine 1.16 (0.5-1.4) mg/dL Estim Creat Clear Calc 19.0 Estimated GFR 45 POC Glucose (60-115) mg/dL Random Glucose 165 H (60-115) mg/dL Calcium 9.4 D (8.4-10.2) mg/dL Total Bilirubin 0.4 (0.0-1.0) mg/dL AST 20 (5-31) U/L ALT 15 (0-31) U/L Alkaline Phosphatase 81 D (39-117) U/L Total Creatine Kinase 71 (26-140) U/L Troponin I High Sens B-Natriuretic Peptide (<100) pg/mL Total Protein 7.7 D (6.5-8.0) g/dL Albumin 4.2 (3.5-5.0) g/dL Urine Color Urine Appearance Urine pH (5.0-9.0) Ur Specific [place] (1.005-1.025) Urine Protein (Neg-Trace) mg/dL Urine Glucose (UA) (Negative) mg/dL Urine Ketones (Negative) mg/dL Urine Blood (Negative) Urine Nitrite (Negative) Ur Leukocyte Esterase (Negative) COVID-19 (REY) (Negative) COVID-19 Clin Com 04/22/22 04/22/22 04/22/22 Range/Units 09:44 09:44 09:44 WBC 5.6 RBC 3.91 L Hgb 12.0 Hct 37.5 MCV 95.9 MCH 30.7 MCHC 32.0 RDW 14.3 Plt Count 400 MPV 8.9 L Immature Gran % (Auto) 0.5 H Neut % (Auto) 75.1 H Lymph % (Auto) 12.2 L Crisp % (Auto) 8.8 Eos % (Auto) 2.5 Baso % (Auto) 0.9 Lymph # (Auto) 0.7 L Crisp # (Auto) 0.5 Eos # (Auto) 0.1 Baso # (Auto) 0.1 Abs Immat Gran (auto) 0.03 Absolute Neuts (auto) 4.2 Absolute Nucleated RBC 0.000 Nucleated RBC % (auto) 0.0 PT 10.5 Whole Blood PT (11.1-13.5) sec INR 0.9 Whole Blood INR (0.9-1.1) APTT 29.8 (26.0-36.4) SEC Sodium (135-145) mmol/L Potassium (3.3-5.1) mmol/L Chloride (96-108) mmol/L Carbon Dioxide (22-29) mmol/L Anion Gap (12-20) BUN (9-16) mg/dL Creatinine (0.5-1.4) mg/dL Estim Creat Clear Calc Estimated GFR POC Glucose (60-115) mg/dL Random Glucose (60-115) mg/dL Calcium (8.4-10.2) mg/dL Total Bilirubin (0.0-1.0) mg/dL AST (5-31) U/L ALT (0-31) U/L Alkaline Phosphatase (39-117) U/L Total Creatine Kinase (26-140) U/L Troponin I High Sens Cancelled B-Natriuretic Peptide (<100) pg/mL Total Protein (6.5-8.0) g/dL Albumin (3.5-5.0) g/dL Urine Color Urine Appearance Urine pH (5.0-9.0) Ur Specific [place] (1.005-1.025) Urine Protein (Neg-Trace) mg/dL Urine Glucose (UA) (Negative) mg/dL Urine Ketones (Negative) mg/dL Urine Blood (Negative) Urine Nitrite (Negative) Ur Leukocyte Esterase (Negative) COVID-19 (REY) (Negative) COVID-19 Clin Com 04/22/22 04/22/22 04/22/22 Range/Units 09:44 09:44 10:02 WBC RBC Hgb Hct MCV MCH MCHC RDW Plt Count MPV Immature Gran % (Auto) Neut % (Auto) Lymph % (Auto) Crisp % (Auto) Eos % (Auto) Baso % (Auto) Lymph # (Auto) Cris[place] # (Auto) Eos # (Auto) Baso # (Auto) Abs Immat Gran (auto) Absolute Neuts (auto) Absolute Nucleated RBC Nucleated RBC % (auto) PT Whole Blood PT (11.1-13.5) sec INR Whole Blood INR (0.9-1.1) APTT (26.0-36.4) SEC Sodium (135-145) mmol/L Potassium (3.3-5.1) mmol/L Chloride (96-108) mmol/L Carbon Dioxide (22-29) mmol/L Anion Gap (12-20) BUN (9-16) mg/dL Creatinine (0.5-1.4) mg/dL Estim Creat Clear Calc Estimated GFR POC Glucose (60-115) mg/dL Random Glucose Cancelled (60-115) mg/dL Calcium (8.4-10.2) mg/dL Total Bilirubin (0.0-1.0) mg/dL AST (5-31) U/L ALT (0-31) U/L Alkaline Phosphatase (39-117) U/L Total Creatine Kinase (26-140) U/L Troponin I High Sens < 3.5 B-Natriuretic Peptide 124 H (<100) pg/mL Total Protein (6.5-8.0) g/dL Albumin (3.5-5.0) g/dL Urine Color Yellow Urine Appearance Clear Urine pH 7.0 (5.0-9.0) Ur Specific [place] 1.010 (1.005-1.025) Urine Protein Trace (Neg-Trace) mg/dL Urine Glucose (UA) 100 H (Negative) mg/dL Urine Ketones Negative (Negative) mg/dL Urine Blood Negative (Negative) Urine Nitrite Negative (Negative) Ur Leukocyte Esterase Negative (Negative) COVID-19 (REY) (Negative) COVID-19 Clin Com ECG Data Attestation: I personally reviewed and interpreted this ECG as follows: Prior ECG tracings: available for review Interpretation: Normal sinus rhythm with sinus arrhythmia, HR-70, no STEMI, LA/QRS/QTC is within normal limits. NIH Stroke Scale Internal: Initial- Upon Arrival Level of Consciousness: Alert Level of Consciousness Questions: Answers both questions correctly Level of Consciousness Commands: Performs both tasks correctly Best Gaze: Normal Visual: No visual loss Facial Palsy: Normal Motor Arm (Right): No drift Motor Arm (Left): No drift Motor Leg (Right): No drift Motor Leg (Left): No drift Limb Ataxia: Absent Sensory: Normal Best Language: Mild to moderate aphasia Dysarthia: Mild to moderate dysarthria Extinction and Inattention: No abnormality Score: 2 Critical Care Time Critical Care Time Critical Care Time: Yes Total Critical Care Time: 30 Attestation: I personally attest to this time spent taking care of the patient. Discharge Plan Discharge Clinical Impression: National Institutes of Health (NIH) Stroke Scale best language score 1, mild to moderate aphasia, some loss of fluency, reduction of speech and/or compre hension, makes conversation about provided material difficult or impossible, Hypertensive urgency, Nausea & vomiting Patient Disposition: Admitted As Inpatient
[2022-04-22 08:42] LABS: Glucose, Whole Blood 141 mg/dL (60-115)
[2022-04-22] MEDS: Labetalol HCL 100 MG/20 ML VIAL IVPUSH ×2 (08:46→09:14)
--- NOTE | 2022-04-22 08:54 | PC.NURSE ---
at bedside, pt awoke at 0700, he never saw her normal this morning,went to bed normal, at 0715 he noticed trouble w speech and she had a grossman, ct complete
[2022-04-22 09:03] LABS: Prothrombin Time Whole Bld POC 11.7 sec (11.1-13.5)
[2022-04-22] MEDS: Aspirin 81 MG TAB.CHEW PO (09:14)
[2022-04-22] MEDS: Acetaminophen 325 MG TABLET 975 MG PO (09:14)
[2022-04-22] MEDS: ondansetron HCL 4 MG/2 ML VIAL IVPUSH ×2 (09:14→11:56)
[2022-04-22] MEDS: 0.9 % Sodium Chloride 1,000 ML 999 ML IV (09:20)
[2022-04-22 09:50] LABS: MANUAL DIFF FLAG NO
[2022-04-22 09:50] LABS: COVID-19 Test Negative (Negative)
[2022-04-22 09:55] LABS: Basophils Absolute Auto 0.1 X10*3/uL (0.0-0.2); Basophils Percent Auto 0.9 % (0-2); Eosinophils Absolute Auto 0.1 X10*3/uL (0.0-0.4); Eosinophils Percent Auto 2.5 % (0-4); Hematocrit 37.5 % (37.0-47.0); Imm Gran Abs Auto 0.03 X10*3/uL (0.00-0.03); Imm Gran Pct Auto 0.5 % (0.0-0.4); Lymphocytes Absolute Auto 0.7 X10*3/uL (1.2-4.9); Lymphocytes Percent Auto 12.2 % (20-40); Mean Corpuscular Hemoglobin 30.7 pg (27.0-33.0); Mean Corpuscular Volume 95.9 fL (80.0-98.0); Mean Platelet Volume 8.9 fL (9.4-12.3); Monocytes Absolute Auto 0.5 X10*3/uL (0.1-1.2); Monocytes Percent Auto 8.8 % (2-11); Neutrophils Absolute Auto 4.2 x10*3/uL (2.0-8.3); Neutrophils Percent Auto 75.1 % (45-73); Platelet Count 400 X10*3/uL (160-400); Red Blood Count 3.91 X10*6/uL (4.20-5.50); Red Cell Distribution Width 14.3 % (11.0-16.0); White Blood Count 5.6 X10*3/uL (4.8-10.8)
[2022-04-22 10:06] LABS: INTERNATIONAL NORM RATIO 0.9 (0.9-1.1); Prothrombin Time 10.5 SEC (10.0-13.1)
[2022-04-22 10:08] LABS: Partial Thromboplastin Time 29.8 SEC (26.0-36.4)
--- NOTE | 2022-04-22 10:11 | PM.NEUROCN ---
History of Present Illness Data of Consult Service Date: 04/22/22 Primary Care Provider: Lucas Moore MD HPI Reason for consult: Stroke 81 years old woman I was asked to see urgently in emergency room. She came to hospital with new onset of headache that started last night. She was not feeling well recently. This morning she was noted to have difficulty speaking in came to emergency room. I evaluated her for possible acute treatment for stroke. When I saw her she was in emergency room and was having moderate to severe headache. Headache is slowly involved. She was also nauseous. There was no complaint of any focal weakness or seizure. Review of Systems Review of Systems: Generally not feeling well recently. [facility] Past Medical History Medical History Abnormal cardiac function test GERD (gastroesophageal reflux disease) Hypercholesterolemia Hypertension Insomnia Post-menopausal Family History Family History Father Heart disease Prostate cancer Colon cancer CVD (cardiovascular disease) Diabetes Mother Ovarian cancer Gout Sister Ovarian cancer Surgical History Surgical History History of cardiac cath History of colonoscopy No pertinent past surgical history Social History Social History Housing: House Alcohol intake: current Alcohol intake frequency: a few times a week Patient Tobacco Use Status: Former Tobacco user Quit Date: 1989 Smoked: 30 +/- e-Cigarette/Vaping Use: Never Used Second Hand Smoke Exposure: No Advance Directives: No Advance Directives Information Provided: Yes Current occupational status: retired Cognitive needs: No Hearing needs: No Vision needs: No Meds Allergies Allergy/AdvReac Type Severity Reaction Status Date / Time Penicillins [PENICILLINS] Allergy Severe THROAT Verified 03/02/22 12:50 SWELLS Iodinated Contrast Media Allergy Intermediate Rash Verified 03/02/22 13:04 penicillin V Allergy Unknown Throat Verified 03/02/22 12:50 Swells Active Medications: Current Medications Sodium Chloride (Ns) 1,000 mls @ 999 mls/hr IV .Q1H1M ALEJANDRA Stop: 04/22/22 10:15 Last Admin: 04/22/22 09:20 Dose: 999 mls/hr Pharmacy Consult (Consult Rx Perform Med Rec) 1 each MISCELLANE ONCE PRN PRN Reason: Consult order Home Medications Medication Instructions Recorded Confirmed Last Taken Type cholecalciferol (vitamin D3) 25 25 mcg PO DAILY 09/10/20 03/02/22 Unknown History mcg (1,000 unit) capsule vitamins A,C,T-[id number]-[id number] 14,320 1 cap PO ONCE 04/15/21 03/02/22 Unknown History unit-226 mg-200 unit capsule (PreserVision AREDS) aspirin 81 mg tablet,delayed 81 mg PO DAILY 08/03/21 03/02/22 Unknown History release (Adult Aspirin Regimen) cyclosporine modified 100 mg 100 mg PO BEDTIME 03/02/22 03/02/22 Unknown History capsule cyclosporine modified 100 mg 200 mg PO DAILY 04/22/22 Unknown History capsule hydroxyzine HCl 10 mg tablet 10 mg PO BID PRN Itching 04/22/22 Unknown History Physical Exam Vital Signs: Vital Signs: Last Vital Signs Temp 98 F 04/22/22 08:34 Pulse 72 04/22/22 09:34 Resp 16 04/22/22 09:34 BP 170/90 H 04/22/22 09:34 Pulse Ox 97 04/22/22 09:34 O2 Del Method 04/22/22 09:34 BMI result Body Mass Index 11.2 Neuro: Other: She was alert and awake with what seemed like normal spontaneity of speech. Fluency was mostly intact though occasionally she would make a para phasic error. She was able to name. She was able to repeat simple words and sentences but had difficulty repeating complex word. For example she was able to tell me that she lived in [place] by naming the state but when I asked her to repeat words [facility] she had significant difficulty repeating it. Face was symmetrical. Tongue was midline. There was no pronator drift. Nuktmt-[id number] testing was normal. Deep tendon reflexes were trace to absent with flexor plantars. Extraocular muscles were intact. Visual nielsen are full. Results Labs CBC & Chem 7: 04/22/22 09:44 04/22/22 09:44 Labs: Short CBC 04/22/22 04/22/22 Range/Units 09:44 09:44 WBC Cancelled 5.6 Hgb Cancelled 12.0 Hct Cancelled 37.5 Plt Count Cancelled [address] revealed moderate chronic microvascular ischemic changes but no obvious acute lesion. Assessment and Plan (1) Hypertensive urgency: Status: Acute (2) Mild aphasia: Status: Acute 81 years old woman with underlying hypertension came to hospital with severe headache nausea with high blood pressure. Her examination revealed mild language dysfunction suggestive of mild aphasia of conduction type. Likely etiology was either hypertensive encephalopathy or ischemic infarction. Because of relative mild nature of symptoms, intravenous tPA type of treatment was not considered. Mainstay of management at this time was headache treatment blood pressure control anti-platelet agent and getting an MRI of brain for formal definition of her problem. CTA of brain and neck is also recommended those she was somewhat dehydrated. If not CTA, MRA of brain and neck can also help. Procedures Date of Service Date of Service: 04/22/22
[2022-04-22 10:13] LABS: Alanine Aminotransferase 15 U/L (0-31); Albumin Level 4.2 g/dL (3.5-5.0); Alkaline Phosphatase 81 U/L (39-117); Anion Gap 17 (12-20); Aspartate Amino Transferase 20 U/L (5-31); Bilirubin Total 0.4 mg/dL (0.0-1.0); Blood Urea Nitrogen 45 mg/dL (9-16); Calcium 9.4 mg/dL (8.4-10.2); Carbon Dioxide 25 mmol/L (22-29); Chloride 101 mmol/L (96-108); Estimated Glomerular Filt Rate 45; Glucose Random 165 mg/dL (60-115); Potassium 4.6 mmol/L (3.3-5.1); Sodium 138 mmol/L (135-145); Total Protein 7.7 g/dL (6.5-8.0)
[2022-04-22 10:14] LABS: B Type Natriuretic Peptide 124 pg/mL (<100); Troponin-I High Sensitivity < 3.5 ng/L (<3.5-17.0)
[2022-04-22 10:15] LABS: Stroke Lab Use COMPLETE
[2022-04-22 10:18] LABS: Appearance Urine Clear; Color Urine Yellow; Glucose Urine UA 100 mg/dL (Negative); Leukocyte Esterase Urine Negative (Negative); Nitrite Urine Negative (Negative); Urine Blood Negative (Negative); Urine Ketones Negative (Negative); Urine Protein Trace mg/dL (Neg-Trace)
--- NOTE | 2022-04-22 10:19 | PHA.MEDREC ---
Pharmacy Consult ? Medication Reconciliation Pharmacy has completed the medication reconciliation.
[2022-04-22 11:56] LABS: IDNOW Serial# 9DB6401D; Influenza A Negative (Negative); Influenza B2 Negative (Negative)
[2022-04-22] MEDS: Morphine Sulfate 2 MG/ML CARTRIDGE IVPUSH (11:56)
--- NOTE | 2022-04-22 12:34 | P.HPHOSP_ITS ---
History of Present Illness Date of Service: 04/22/22 Attending physician on admission: Varinder Cook Chief Complaint: slurred speech,headache 81 year old female with history CAD s/p cardiac cath showing minimal stenosis, GERD, HTN, HLD, and recurrent rash following reaction to IV contrast in October 2021 presented to ED this morning due to severe left sided headache and dysarthria noted by her . She awoke this morning with headache and states has had similar headache intermittently for several days. Her who is present on interview, notes that he noticed slow disorganized speech around 730 this morning so he called EMS. She also developed nausea with one episode vomiting this in the ED. Pt was hypertensive on arrival at 189/79. Head CT without acute intracranial abnormality. BUN mildly elevated at 45, chronic finding likely secondary to cyclosporine. Renal function and electrolytes otherwise normal. Hematology studies normal. BUN slightly elevated at 124. LDL 183, total cholesterol 272. Seen by neurology, IV tpa not advised due to relatively mild nature of symptoms. Given baby aspirin. MRI ordered without evidence of infarct. No history CVA. She was previously on statin but this was discontinued d/t recurrent severe rash followign IV contrast reaction and has been taking cyclosporine following with dermatology. Given labetolol in ED for her BP along with 1L IVF, ondansetron, tylenol. To be admitted for possible TIA. Review of Systems Review of Systems: General: No fevers, malaise, unintentional weight loss HEENT: +blurred vision. No diplopia Cardiovascular: No chest pain, palpitations, or leg edema Respiratory: No shortness of breath, wheezing, cough GI: +nausea, +vomiting. No abdominal pain, diarrhea, constipation, melena, hematochezia : No dysuria, hematuria Neuro: +headache, +dysarthria. No weakness, paresthesias Skin: No rashes or lesions [facility] Medical History (Updated 04/22/22 @ 13:07 by JOSÉ MIGUEL Barker) Abnormal cardiac function test CAD (coronary artery disease) GERD (gastroesophageal reflux disease) Hypercholesterolemia Hypertension Insomnia Post-menopausal Rash Family History Father Heart disease Prostate cancer Colon cancer CVD (cardiovascular disease) Diabetes Mother Ovarian cancer Gout Sister Ovarian cancer Surgical History History of cardiac cath History of colonoscopy No pertinent past surgical history Social History Housing: House Alcohol intake: current Alcohol intake frequency: 0-2 drinks per day Patient Tobacco Use Status: Former Tobacco user Quit Date: 1989 Smoked: 30 +/- e-Cigarette/Vaping Use: Never Used Second Hand Smoke Exposure: No Use of substances other than those prescribed or required for medical reasons: No Advance Directives: No Advance Directives Information Provided: Yes Current occupational status: retired Cognitive needs: No Hearing needs: No Vision needs: No Meds Allergies Allergy/AdvReac Type Severity Reaction Status Date / Time Penicillins [PENICILLINS] Allergy Severe THROAT Verified 03/02/22 12:50 SWELLS Iodinated Contrast Media Allergy Intermediate Rash Verified 03/02/22 13:04 penicillin V Allergy Unknown Throat Verified 03/02/22 12:50 Swells Active Medications: Current Medications Acetaminophen (Acetaminophen Supp 650 Mg Supp.Rect) 650 mg RI Q6H PRN PRN Reason: Headache Aspirin (Aspirin Enteric Coated 81 Mg Tablet.Dr) 81 mg PO DAILY ALEJANDRA Docusate Sodium (Docusate Sodium 100 Mg Capsule) 100 mg PO DAILY PRN PRN Reason: Constipation Sodium Chloride (Ns) 1,000 mls @ 100 mls/hr IVCONT .Q10H ALEJANDRA Ondansetron HCl (Ondansetron Hcl 4 Mg/2 Ml Vial) 4 mg IVPUSH Q8H PRN PRN Reason: Nausea and Vomiting Pharmacy Consult (Consult Rx Perform Med Rec) 1 each MISCELLANE ONCE PRN PRN Reason: Consult order Home Medications Medication Instructions Recorded Confirmed Last Taken Type cholecalciferol (vitamin D3) 25 25 mcg PO DAILY 09/10/20 04/22/22 04/21/22 History mcg (1,000 unit) capsule vitamins A,C,E-gfej-qetklk 14,320 1 cap PO DAILY 04/15/21 04/22/22 04/21/22 History unit-226 mg-200 unit capsule (PreserVision AREDS) aspirin 81 mg tablet,delayed 81 mg PO DAILY 08/03/21 04/22/22 04/21/22 History release (Adult Aspirin Regimen) cyclosporine modified 100 mg 100 mg PO BEDTIME 03/02/22 04/22/22 04/21/22 History capsule cyclosporine modified 100 mg 200 mg PO DAILY 04/22/22 04/22/22 04/21/22 History capsule Physical Exam Vital Signs and Narrative: Vital Signs: Last Vital Signs Temp 98 F 04/22/22 08:34 Pulse 70 04/22/22 11:14 Resp 19 04/22/22 11:14 BP 183/74 H 04/22/22 11:14 Pulse Ox 98 04/22/22 11:14 O2 Del Method 04/22/22 11:14 BMI result Body Mass Index 11.2 Constitutional - Awake and Alert, No apparent distress Eyes - PERRLA, EOMI Cardiovascular - S1S2, RRR, No edema Respiratory - Normal lung expansion, Normal respiratory effort, No respiratory distress, CTA bilaterally Gastrointestinal - NT / ND; +BS; No rebound or guarding Extremities - no calf tenderness bilaterally, no swelling Musculoskeletal - Normal inspection, normal ROM Skin - Warm/Dry Neurological - Alert & oriented x3 but slow to follow commands. CN II-XII normal except for dysarthria and slow speech. 5/5 strength BUE and BLE. Results Labs CBC and Chem 7: 04/22/22 09:44 04/22/22 09:44 Labs: Laboratory Results - last 24 hr 04/22/22 04/22/22 04/22/22 08:37 08:55 09:25 MCV MCH MCHC RDW Plt Count MPV Immature Gran % (Auto) Neut % (Auto) Lymph % (Auto) [place] % (Auto) Eos % (Auto) Baso % (Auto) Lymph # (Auto) [place] # (Auto) Eos # (Auto) Baso # (Auto) Abs Immat Gran (auto) Absolute Neuts (auto) Absolute Nucleated RBC Nucleated RBC % (auto) PT Whole Blood PT 11.7 INR Whole Blood INR 1.0 APTT Anion Gap Estim Creat Clear Calc Estimated GFR POC Glucose 141 H Random Glucose Calcium Total Bilirubin AST ALT Alkaline Phosphatase Total Creatine Kinase Troponin I High Sens B-Natriuretic Peptide Total Protein Albumin Urine Color Urine Appearance Urine pH Ur Specific [place] Urine Protein Urine Glucose (UA) Urine Ketones Urine Blood Urine Nitrite Ur Leukocyte Esterase COVID-19 (REY) Negative COVID-19 Clin Com See Note Influenza Type A (WENDY) Influenza Type B (WENDY) Influenza A & B Note 04/22/22 04/22/22 04/22/22 09:44 09:44 09:44 MCV Cancelled MCH Cancelled MCHC Cancelled RDW Cancelled Plt Count Cancelled MPV Cancelled Immature Gran % (Auto) Cancelled Neut % (Auto) Cancelled Lymph % (Auto) Cancelled [place] % (Auto) Cancelled Eos % (Auto) Cancelled Baso % (Auto) Cancelled Lymph # (Auto) Cancelled [place] # (Auto) Cancelled Eos # (Auto) Cancelled Baso # (Auto) Cancelled Abs Immat Gran (auto) Cancelled Absolute Neuts (auto) Cancelled Absolute Nucleated RBC Cancelled Nucleated RBC % (auto) Cancelled PT Cancelled Whole Blood PT INR Cancelled Whole Blood INR APTT Anion Gap 17 Estim Creat Clear Calc 19.0 Estimated GFR 45 POC Glucose Random Glucose 165 H Calcium 9.4 D Total Bilirubin 0.4 AST 20 ALT 15 Alkaline Phosphatase 81 D Total Creatine Kinase 71 Troponin I High Sens B-Natriuretic Peptide Total Protein 7.7 D Albumin 4.2 Urine Color Urine Appearance Urine pH Ur Specific [place] Urine Protein Urine Glucose (UA) Urine Ketones Urine Blood Urine Nitrite Ur Leukocyte Esterase COVID-19 (REY) COVID-19 Clin Com Influenza Type A (WENDY) Influenza Type B (WENDY) Influenza A & B Note 04/22/22 04/22/22 04/22/22 09:44 09:44 09:44 MCV 95.9 MCH 30.7 MCHC 32.0 RDW 14.3 Plt Count 400 MPV 8.9 L Immature Gran % (Auto) 0.5 H Neut % (Auto) 75.1 H Lymph % (Auto) 12.2 L [place] % (Auto) 8.8 Eos % (Auto) 2.5 Baso % (Auto) 0.9 Lymph # (Auto) 0.7 L [place] # (Auto) 0.5 Eos # (Auto) 0.1 Baso # (Auto) 0.1 Abs Immat Gran (auto) 0.03 Absolute Neuts (auto) 4.2 Absolute Nucleated RBC 0.000 Nucleated RBC % (auto) 0.0 PT 10.5 Whole Blood PT INR 0.9 Whole Blood INR APTT 29.8 Anion Gap Estim Creat Clear Calc Estimated GFR POC Glucose Random Glucose Calcium Total Bilirubin AST ALT Alkaline Phosphatase Total Creatine Kinase Troponin I High Sens Cancelled B-Natriuretic Peptide Total Protein Albumin Urine Color Urine Appearance Urine pH Ur Specific [place] Urine Protein Urine Glucose (UA) Urine Ketones Urine Blood Urine Nitrite Ur Leukocyte Esterase COVID-19 (REY) COVID-19 Clin Com Influenza Type A (WENDY) Influenza Type B (WENDY) Influenza A & B Note 04/22/22 04/22/22 04/22/22 09:44 09:44 10:02 MCV MCH MCHC RDW Plt Count MPV Immature Gran % (Auto) Neut % (Auto) Lymph % (Auto) [place] % (Auto) Eos % (Auto) Baso % (Auto) Lymph # (Auto) [place] # (Auto) Eos # (Auto) Baso # (Auto) Abs Immat Gran (auto) Absolute Neuts (auto) Absolute Nucleated RBC Nucleated RBC % (auto) PT Whole Blood PT INR Whole Blood INR APTT Anion Gap Estim Creat Clear Calc Estimated GFR POC Glucose Random Glucose Cancelled Calcium Total Bilirubin AST ALT Alkaline Phosphatase Total Creatine Kinase Troponin I High Sens < 3.5 B-Natriuretic Peptide 124 H Total Protein Albumin Urine Color Yellow Urine Appearance Clear Urine pH 7.0 Ur Specific [place] 1.010 Urine Protein Trace Urine Glucose (UA) 100 H Urine Ketones Negative Urine Blood Negative Urine Nitrite Negative Ur Leukocyte Esterase Negative COVID-19 (REY) COVID-19 Clin Com Influenza Type A (WENDY) Influenza Type B (WENDY) Influenza A & B Note 04/22/22 11:14 MCV MCH MCHC RDW Plt Count MPV Immature Gran % (Auto) Neut % (Auto) Lymph % (Auto) [place] % (Auto) Eos % (Auto) Baso % (Auto) Lymph # (Auto) [place] # (Auto) Eos # (Auto) Baso # (Auto) Abs Immat Gran (auto) Absolute Neuts (auto) Absolute Nucleated RBC Nucleated RBC % (auto) PT Whole Blood PT INR Whole Blood INR APTT Anion Gap Estim Creat Clear Calc Estimated GFR POC Glucose Random Glucose Calcium Total Bilirubin AST ALT Alkaline Phosphatase Total Creatine Kinase Troponin I High Sens B-Natriuretic Peptide Total Protein Albumin Urine Color Urine Appearance Urine pH Ur Specific [place] Urine Protein Urine Glucose (UA) Urine Ketones Urine Blood Urine Nitrite Ur Leukocyte Esterase COVID-19 (REY) COVID-19 Clin Com Influenza Type A (WENDY) Negative Influenza Type B (WENDY) Negative Influenza A & B Note See Note Imaging Radiologist's Impressions: Impressions Head CT 04/22/22 08:52 IMPRESSION: No acute intracranial process seen. Age-related cerebral volume loss with chronic small vessel ischemic changes. This critical result was discussed with Dr. Diana Chowdhury in ER at 9:00 AM by phone. It was ascertained that the content and urgency of the report was understood at the time of direct communication. Brain MRI 04/22/22 11:03 IMPRESSION: Partially nondiagnostic MRI of the brain due to significant motion artifact. No definite acute infarcts accounting for artifact. The blood sensitive gradient series is nondiagnostic. There is global cerebral volume loss and there is moderate chronic microangiopathy. Assessment and Plan (1) Mild aphasia: Status: Acute (2) Hypertensive urgency: Status: Acute Plan 81 year old female with history CAD s/p cardiac cath showing minimal stenosis, GERD, HTN, HLD, and recurrent rash following reaction to IV contrast in October 2021 admitted for hypertensive urgency and aphasia. 1- Hypertensive urgency -BP 196/81 in ED> Given IV labetolol -Remains hypertensive at 190/72 -Home lisinopril 40mg and metoprolol 25mg ordered. Hold hctz until tomorrow -IV antihypertensives prn -Vitals q2h -Admit to telemetry 2-Mild aphasia and encephalopathy -Head CT and MRI brain negative for infarction. TIA less likely -Continue baby aspirin which she takes at home -Hold on statin due to severe interaction with cyclosporine -Seen by neurology. Possibly related to hypertensive encephalopathy. Also consider aphasia and encephalopathy related to complex migraine given severe headache and n/v -Neuro checks q2h -Neurology to follow 3-Severe headache -Possibly complex migraine with associated confusion and n/v -Given IV morphine for headache and tylenol -Continue prn tylenol. Consider sumatriptan if headache persists -Ondansetron prn 4- HLD -LDL 186 -Will need statin once cyclosporine course completed. Coadministration of statin and cyclosporine contraindicated -Follow up with pcp outpt 5-CAD- no anginal cp -EKG and trop stable -Continue asa and bb -Statin contraindicated as above 6-Chronic recurrent rash follow IV contrast administration -Continue cyclosporine per dermatology Dvt prophylaxis- lovenox Full code Pt requires inpt stay of at least 2 midnights due to hypertensive urgency requiring IV antihypertensives and question of TIA with ABCD2 risk score of 5 requiring close monitoring Quality Stroke Does the patient have a stroke diagnosis?: No VTE Prior VTE?: No VTE Risk Level:: Medical - moderate - high VTE Device Contraindication: Treatment Not Indicated VTE Drug Contraindication: N/A - Med Ordered
[2022-04-22 12:42] LABS: Cholesterol 272 mg/dL; HDL Cholesterol 65 mg/dL; LDL Cholesterol Calculated 183 mg/dl; Triglycerides 120 mg/dL
--- NOTE | 2022-04-22 12:47 | PC.NURSE ---
Pt V/S are elevated and it was addressed by the previous nurse. Pt GCS is 12, pt is a/o x1, pt did not follow commands for the swallowing eval but she did follow commands for neuro assessment. Pt is at bedside and he is willing to help with information as needed. pt has IVF running, and she is on the telemetry in which it shows NSR and elevated BP. X-ray just came in. will continue to monitor.
--- NOTE | 2022-04-22 13:22 | PC.NURSE ---
pt alert but is restless and having difficulty following commands, speech still slurred and pt appears to be searching for words when answering questions, pt still is dry heaving and reports nausea ns on the monitor but still hypertensive
[2022-04-22 14:00] LABS: Folate 10.9 ng/mL (> or = 4.0); Vitamin B12 305 pg/mL (200-900)
[2022-04-22] MEDS: Enoxaparin Sodium 30 MG/0.3 ML SYRINGE SUBCUT (14:09)
[2022-04-22] MEDS: Prochlorperazine Edisylate 10 MG/2 ML VIAL 5 MG IVPUSH (14:09)
--- NOTE | 2022-04-22 14:30 | PC.NURSE ---
pt becoming more altered, not able to follow any simple commands at this time, attempted to get pt up out of bed on to the commode but pt very stiff at this time, earlier this rn got pt up by herself without any difficultly this rn failed the pt for swallow evaluation and holding all po medications at this time. jason morin at bedside to evaluate is aware of the holding meds
--- NOTE | 2022-04-22 15:06 | PM.EVENT ---
Event Note Date of Service: 04/22/22 Event Note: ED called to notify hospitalists of worsening encephalopathy in patient. At the same time, PT/OT also sent message noting increased confusion as well as left sided facial droop and decreased tone in the left arm and leg. Blood pressure still elevated at 184/79. On exam patient with loss of left-sided nasolabial fold, decreased strength left extremities, loss of trunk control, and pusher syndrome. Due to new symptoms, head CT again ordered. Labetolol 5mg ordered as neuro had suspicion for hypertensive encephalopathy. Suspect partly related to morphine administration. CBC and BMP also ordered. Continue neuro checks q2h.
[2022-04-22] MEDS: niCARdipine HCL 25 MG in 0.9 % Sodium Chloride 250 ML 52 MG IVCONT (15:24)
--- NOTE | 2022-04-22 15:42 | PC.NURSE ---
nicardipine driped paused at this time, current bp at 155/69
--- NOTE | 2022-04-22 15:55 | PC.NURSE ---
dr tony at bedside, verbal order per [facility] to restart the nicardipine drip for perimeters of bp systolic of 145
--- NOTE | 2022-04-22 15:56 | PC.NURSE ---
izaguirre cath in place and darning well about 300ml of clear yellow urine
--- NOTE | 2022-04-22 16:08 | PC.NURSE ---
pt is currently resting quietly, no pulling on things, speech is almost incoherent, wakes to soft sternal touch at this time, vs stable
--- NOTE | 2022-04-22 16:09 | PM.DS ---
DS: Providers Provider Date of Service: 04/22/22 Date of admission: 04/22/22 12:17 Primary care physician: Lucas Moore MD Consults: 04/22/22 11:07 Consult to Neurology Stat Consulting Provider: [facility] Reason for consultation: STROKE, pt has already been seen Has provider been notified: Yes DS: Diagnosis Discharge Diagnosis (1) Mild aphasia: Status: Acute (2) Hypertensive urgency: Status: Acute DS: Summary Hospital Course Hospital Course: from initial hpi: Chief Complaint: slurred speech,headache 81 year old female with history CAD s/p cardiac cath showing minimal stenosis, GERD, HTN, HLD, and recurrent rash following reaction to IV contrast in October 2021 presented to ED this morning due to severe left sided headache and dysarthria noted by her . She awoke this morning with headache and states has had similar headache intermittently for several days. Her who is present on interview, notes that he noticed slow disorganized speech around 730 this morning so he called EMS. She also developed nausea with one episode vomiting this in the ED. Pt was hypertensive on arrival at 189/79. Head CT without acute intracranial abnormality.? BUN mildly elevated at 45, chronic finding likely secondary to cyclosporine.? Renal function and electrolytes otherwise normal.? Hematology studies normal.? BUN slightly elevated at 124.? LDL 183, total cholesterol 272. Seen by neurology, IV tpa not advised due to relatively mild nature of symptoms. Given baby aspirin. MRI ordered without evidence of infarct. No history CVA. She was previously on statin but this was discontinued d/t recurrent severe rash followign IV contrast reaction and has been taking cyclosporine following with dermatology. Given labetolol in ED for her BP along with 1L IVF, ondansetron, tylenol. To be admitted for possible TIA. hospital course: Patient was initially admitted for hypertensive urgency. Plan was to restart medications and monitor closely. However, during evaluation by Physical therapy patient was noted to be significantly dysarthric again with left-sided weakness and aphasia. CT head was repeated and revealed acute right basal ganglia/external capsule hematoma, oval shaped and measures 2.3 cm in diameter without midline shift. Patient was then started on nicardipine drip with goal of systolic blood pressure of 140. Case was discussed with and patient accepted for transfer. Patient has known hyperlipidemia but is not on statin due to contraindication during cyclosporin treatment for which she is on for chronic recurrent rash status post CT contrast. For patient's coronary disease her aspirin will be held due to intracranial hemorrhage. Time Spent with Patient Time attestation: Total time spent providing and/or coordinating discharge services: Discharge coordination time: Greater than 30 minutes Quality: Safe Use of Opioids Does Pt have an Active Cancer Diagnosis on the Problem List?: No Quality: Stroke Does the patient have a stroke diagnosis?: Yes Reason for No Anti-thrombotic at DC: Contraindicated Reason for No Anticoagulant at DC: Contraindicated Reason Not Initiating IV-Tpa: Contraindicated Reason for No Anti-thrombotic by Day Two: Contraindicated Reason for No Statin at DC: Contraindicated Physical Exam Vital Signs: Vital Signs: Last Vital Signs Temp 98.4 F 04/22/22 12:42 Pulse 91 04/22/22 16:07 Resp 16 04/22/22 16:07 BP 148/57 H 04/22/22 16:07 Pulse Ox 93 04/22/22 16:07 O2 Del Method 04/22/22 16:07 BMI result Body Mass Index 11.2 General: Alert, in pain from headache Resp: CTA bilateral, no accessory muscles used CVS: S1,S2,RRR GI: soft, non tender, non distended Neuro: left hemiparesis, left facial droop, dysarthria, brocas aphasia Psych: appropriate affect, appropriate insight DS: Data Data Completed and Pending Labs on day of discharge: Laboratory Results - last 24 hr 04/22/22 04/22/22 04/22/22 08:37 08:55 09:25 WBC RBC Hgb Hct MCV MCH MCHC RDW Plt Count MPV Immature Gran % (Auto) Neut % (Auto) Lymph % (Auto) [place] % (Auto) Eos % (Auto) Baso % (Auto) Lymph # (Auto) [place] # (Auto) Eos # (Auto) Baso # (Auto) Abs Immat Gran (auto) Absolute Neuts (auto) Absolute Nucleated RBC Nucleated RBC % (auto) PT Whole Blood PT 11.7 INR Whole Blood INR 1.0 APTT Sodium Potassium Chloride Carbon Dioxide Anion Gap BUN Creatinine Estim Creat Clear Calc Estimated GFR POC Glucose 141 H Random Glucose Calcium Total Bilirubin AST ALT Alkaline Phosphatase Total Creatine Kinase Troponin I High Sens B-Natriuretic Peptide Total Protein Albumin Triglycerides Cholesterol LDL Cholesterol, Calc HDL Cholesterol Vitamin B12 Folate Urine Color Urine Appearance Urine pH Ur Specific [place] Urine Protein Urine Glucose (UA) Urine Ketones Urine Blood Urine Nitrite Ur Leukocyte Esterase COVID-19 (REY) Negative COVID-19 Clin Com See Note Influenza Type A (WENDY) Influenza Type B (WENDY) Influenza A & B Note 04/22/22 04/22/22 04/22/22 09:44 09:44 09:44 WBC Cancelled RBC Cancelled Hgb Cancelled Hct Cancelled MCV Cancelled MCH Cancelled MCHC Cancelled RDW Cancelled Plt Count Cancelled MPV Cancelled Immature Gran % (Auto) Cancelled Neut % (Auto) Cancelled Lymph % (Auto) Cancelled [place] % (Auto) Cancelled Eos % (Auto) Cancelled Baso % (Auto) Cancelled Lymph # (Auto) Cancelled [place] # (Auto) Cancelled Eos # (Auto) Cancelled Baso # (Auto) Cancelled Abs Immat Gran (auto) Cancelled Absolute Neuts (auto) Cancelled Absolute Nucleated RBC Cancelled Nucleated RBC % (auto) Cancelled PT Cancelled Whole Blood PT INR Cancelled Whole Blood INR APTT Sodium 138 Potassium 4.6 Chloride 101 Carbon Dioxide 25 Anion Gap 17 BUN 45 H Creatinine 1.16 Estim Creat Clear Calc 19.0 Estimated GFR 45 POC Glucose Random Glucose 165 H Calcium 9.4 D Total Bilirubin 0.4 AST 20 ALT 15 Alkaline Phosphatase 81 D Total Creatine Kinase 71 Troponin I High Sens B-Natriuretic Peptide Total Protein 7.7 D Albumin 4.2 Triglycerides 120 Cholesterol 272 D LDL Cholesterol, Calc 183 HDL Cholesterol 65 Vitamin B12 Folate Urine Color Urine Appearance Urine pH Ur Specific [place] Urine Protein Urine Glucose (UA) Urine Ketones Urine Blood Urine Nitrite Ur Leukocyte Esterase COVID-19 (REY) COVID-19 Clin Com Influenza Type A (WENDY) Influenza Type B (WENDY) Influenza A & B Note 04/22/22 04/22/22 04/22/22 09:44 09:44 09:44 WBC 5.6 RBC 3.91 L Hgb 12.0 Hct 37.5 MCV 95.9 MCH 30.7 MCHC 32.0 RDW 14.3 Plt Count 400 MPV 8.9 L Immature Gran % (Auto) 0.5 H Neut % (Auto) 75.1 H Lymph % (Auto) 12.2 L [place] % (Auto) 8.8 Eos % (Auto) 2.5 Baso % (Auto) 0.9 Lymph # (Auto) 0.7 L [place] # (Auto) 0.5 Eos # (Auto) 0.1 Baso # (Auto) 0.1 Abs Immat Gran (auto) 0.03 Absolute Neuts (auto) 4.2 Absolute Nucleated RBC 0.000 Nucleated RBC % (auto) 0.0 PT 10.5 Whole Blood PT INR 0.9 Whole Blood INR APTT 29.8 Sodium Potassium Chloride Carbon Dioxide Anion Gap BUN Creatinine Estim Creat Clear Calc Estimated GFR POC Glucose Random Glucose Calcium Total Bilirubin AST ALT Alkaline Phosphatase Total Creatine Kinase Troponin I High Sens Cancelled B-Natriuretic Peptide Total Protein Albumin Triglycerides Cholesterol LDL Cholesterol, Calc HDL Cholesterol Vitamin B12 Folate Urine Color Urine Appearance Urine pH Ur Specific [place] Urine Protein Urine Glucose (UA) Urine Ketones Urine Blood Urine Nitrite Ur Leukocyte Esterase COVID-19 (REY) COVID-19 Clin Com Influenza Type A (WENDY) Influenza Type B (WENDY) Influenza A & B Note 04/22/22 04/22/22 04/22/22 09:44 09:44 09:44 WBC RBC Hgb Hct MCV MCH MCHC RDW Plt Count MPV Immature Gran % (Auto) Neut % (Auto) Lymph % (Auto) [place] % (Auto) Eos % (Auto) Baso % (Auto) Lymph # (Auto) [place] # (Auto) Eos # (Auto) Baso # (Auto) Abs Immat Gran (auto) Absolute Neuts (auto) Absolute Nucleated RBC Nucleated RBC % (auto) PT Whole Blood PT INR Whole Blood INR APTT Sodium Potassium Chloride Carbon Dioxide Anion Gap BUN Creatinine Estim Creat Clear Calc Estimated GFR POC Glucose Random Glucose Cancelled Calcium Total Bilirubin AST ALT Alkaline Phosphatase Total Creatine Kinase Troponin I High Sens < 3.5 B-Natriuretic Peptide 124 H Total Protein Albumin Triglycerides Cholesterol LDL Cholesterol, Calc HDL Cholesterol Vitamin B12 305 Folate 10.9 Urine Color Urine Appearance Urine pH Ur Specific [place] Urine Protein Urine Glucose (UA) Urine Ketones Urine Blood Urine Nitrite Ur Leukocyte Esterase COVID-19 (REY) COVID-19 Clin Com Influenza Type A (WENDY) Influenza Type B (WENDY) Influenza A & B Note 04/22/22 04/22/22 10:02 11:14 WBC RBC Hgb Hct MCV MCH MCHC RDW Plt Count MPV Immature Gran % (Auto) Neut % (Auto) Lymph % (Auto) [place] % (Auto) Eos % (Auto) Baso % (Auto) Lymph # (Auto) [place] # (Auto) Eos # (Auto) Baso # (Auto) Abs Immat Gran (auto) Absolute Neuts (auto) Absolute Nucleated RBC Nucleated RBC % (auto) PT Whole Blood PT INR Whole Blood INR APTT Sodium Potassium Chloride Carbon Dioxide Anion Gap BUN Creatinine Estim Creat Clear Calc Estimated GFR POC Glucose Random Glucose Calcium Total Bilirubin AST ALT Alkaline Phosphatase Total Creatine Kinase Troponin I High Sens B-Natriuretic Peptide Total Protein Albumin Triglycerides Cholesterol LDL Cholesterol, Calc HDL Cholesterol Vitamin B12 Folate Urine Color Yellow Urine Appearance Clear Urine pH 7.0 Ur Specific [place] 1.010 Urine Protein Trace Urine Glucose (UA) 100 H Urine Ketones Negative Urine Blood Negative Urine Nitrite Negative Ur Leukocyte Esterase Negative COVID-19 (REY) COVID-19 Clin Com Influenza Type A (WENDY) Negative Influenza Type B (WENDY) Negative Influenza A & B Note See Note Discharge Plan Discharge Anticipated Discharge Date/Time: 04/22/22 16:06 Patient Disposition: Xfer Acute Care Hospital Discharge Diagnosis: ICH Referrals: Po,Lucas Chavarria MD [Primary Care Provider] - 1 Week Discharge Medications: Continued hydrochlorothiazide 25 mg tablet 25 mg PO DAILY Qty: 90 2RF lisinopril 40 mg tablet 40 mg PO DAILY 90 Days Qty: 90 2RF trazodone 50 mg tablet 50 mg PO BEDTIME Qty: 90 2RF cyclosporine modified 100 mg capsule 200 mg PO DAILY cholecalciferol (vitamin D3) 25 mcg (1,000 unit) capsule 25 mcg PO DAILY PreserVision AREDS [id number] capsule 1 cap PO DAILY cetirizine 10 mg tablet 10 mg PO DAILY Qty: 30 0RF metoprolol succinate 25 mg tablet extended release 24 hr 25 mg PO DAILY 30 Days Qty: 30 4RF cyclosporine modified 100 mg capsule 100 mg PO BEDTIME Discontinued aspirin [Adult Aspirin Regimen] 81 mg tablet,delayed release (DR/EC) 81 mg PO DAILY Discharge Orders: Discharge Order (Routine); Ordered 04/22/22 Ordered By: Varinder Cook Diet: Advance to usual diet Activity on Discharge: As tolerated Stand Alone Forms: Patient Portal Discharge page Care Plan Goals: manage ICH Health Concerns: ICH Plan of Treatment: nicardipine with goal of 140, transfer to [facility] Assessment: see above
[2022-04-22 16:17] LABS: Basophils Absolute Auto 0.1 X10*3/uL (0.0-0.2); Basophils Percent Auto 0.6 % (0-2); Eosinophils Percent Auto 0.2 % (0-4); Hematocrit 36.5 % (37.0-47.0); Hemoglobin 12.2 g/dl (12.0-16.0); Imm Gran Abs Auto 0.04 X10*3/uL (0.00-0.03); Imm Gran Pct Auto 0.4 % (0.0-0.4); Lymphocytes Absolute Auto 0.6 X10*3/uL (1.2-4.9); Lymphocytes Percent Auto 7.2 % (20-40); MANUAL DIFF FLAG SCAN; Mean Corpuscular HGB Conc 33.4 g/dl (31.0-35.0); Mean Corpuscular Hemoglobin 31.4 pg (27.0-33.0); Mean Corpuscular Volume 93.8 fL (80.0-98.0); Monocytes Absolute Auto 0.5 X10*3/uL (0.1-1.2); Monocytes Percent Auto 5.7 % (2-11); Neutrophils Absolute Auto 7.7 x10*3/uL (2.0-8.3); Neutrophils Percent Auto 85.9 % (45-73); PLT CLUMP 1; Red Blood Count 3.89 X10*6/uL (4.20-5.50); Red Cell Distribution Width 14.1 % (11.0-16.0); SCAN SMEAR FLAG 1
--- NOTE | 2022-04-22 16:22 | PC.NURSE ---
pt put on capnography and 2l oxygen, poc 139, bp still holding in the 140's pt is intermittent moving around to back becoming sleepy, pt keeps reporting having nausea
[2022-04-22 16:40] LABS: Platelet Count 320 X10*3/uL (160-400); White Blood Count 8.9 X10*3/uL (4.8-10.8)
[2022-04-22 16:41] LABS: SLIDE REVIEW VERIFIED
[2022-04-22 16:50] LABS: Anion Gap 22 (12-20); Blood Urea Nitrogen 33 mg/dL (9-16); Carbon Dioxide 16 mmol/L (22-29); Chloride 103 mmol/L (96-108); Creatinine Clr Calc Pharmacy 22.8; Estimated Glomerular Filt Rate 55; Glucose Random 158 mg/dL (60-115); Sodium 136 mmol/L (135-145)
--- NOTE | 2022-04-22 16:50 | PC.NURSE ---
nicardipine drip paused at this time, bp 136/51 hr 89
--- NOTE | 2022-04-22 17:27 | PC.NURSE ---
pt's bp starting to back up currently at 158/69 the nicardipine drip restarted at 5mg/h pt is restless again, pulling at blankets and mumbling things
[2022-04-22 17:34] LABS: Glucose, Whole Blood 139 mg/dL (60-115)
--- NOTE | 2022-04-22 17:37 | MHC.STROKE ---
0818 EMS PRE-NOTIFIED, NO STROKE ALERT CALLED IN, ARRIVED AT 0822. EXAMINED BY DR MADSEN AND NIHSS = 2, SPEECH DEFICIT. LKW 0715. SHE ACTIVATED THE STROKE PROTOCOL, CT HEAD DONE NO BLEED, DR JENKINS AT THE BEDSIDE AND HE RECOMMENDED MRI. MRI HAS MOTION, PATIENT UNABLE TO LAY FLAT, VERY RESTLESS, NO ACUTE STROKE. I MET WITH THE AND PROVIDED STROKE EDUCATION AND REVIEWED THE PLAN. AT [address] JENKINS OF A CHANGE IN HER NEURO STATUS. HE EXAMINED THE PATIENT AND SHE HAD SOME LEFT SIDED WEAKNESS, AND MORE CONFUSION. REPEAT CT HEAD DONE IMMEDIATELY + RIGHT BLEED. DR MADSEN IS COORDINATING TRANSFER TO [facility]. I EXPLAINED THE PLAN TO THE AND DAUGHTER AND PROVIDED STROKE EDUCATION AT LENGTH, ANSWERED ALL OF THEIR QUESTIONS. GAVE THEM A SCREENSHOT OF THE CT WITH THE LOCATION OF THE BLEED. THE DAUGHTER IS A NURSE AND ENCOURAGED HER TO WORK WITH THE TEAM AT [facility], SHE HAD SEVERAL QUESTIONS RELATED TO OTHER MEDICAL CONCERNS.
--- NOTE | 2022-04-22 18:32 | PC.NURSE ---
tigered dr tony and spoke to pharmacy about dropping the rate 2.5mg/h [place] when the drip is paused at 5mg/h the bp climbs and if infusing at the 5mg/h bp drops to the 135/54
--- NOTE | 2022-04-22 18:55 | PC.NURSE ---
report given to ariana tierney at [facility]
== END 2022-04-22 20:10 | disposition short-term general hospital (02) | DRG 305 ==
LOC: HO.ED 11:22 → HO.EDOVER 12:30
PROVIDERS: Admitting Provider Physician Assistant; Emergency Provider Student in an Organized Health Care Education/Training Program; PCP Internal Medicine; Visit Provider Internal Medicine
DX: I16.0 Hypertensive urgency (principal); I62.9 Nontraumatic intracranial hemorrhage, unspecified; G81.94 Hemiplegia, unspecified affecting left nondominant side; R47.01 Aphasia; I25.10 Atherosclerotic heart disease of native coronary artery without angina pectoris; K21.9 Gastro-esophageal reflux disease without esophagitis; E78.00 Pure hypercholesterolemia, unspecified; I10 Essential (primary) hypertension; Z20.822 Contact with and (suspected) exposure to COVID-19; Z91.041 Radiographic dye allergy status; Z88.0 Allergy status to penicillin; Z79.899 Other long term (current) drug therapy
CPT/HCPCS: 36415; 70450; 70551; 71045; 80048; 80053; 80061; 81003; 82550; 82565; 82607; 82746; 82784; 82947; 83880; 84165; 84439; 84443; 84484; 84520; 85025; 85610; 85730; 86334; 87502; 87635; 93005; 97163; 97167; 99285; J1650; J2270; J2405

== ENCOUNTER 2022-06-07 10:37 | Outpatient (REF) | payer MEDICARE, SELFPAY ==
[2022-06-07 11:27] LABS: Basophils Absolute Auto 0.1 X10*3/uL (0.0-0.2); Basophils Percent Auto 0.7 % (0-2); Eosinophils Absolute Auto 3.4 X10*3/uL (0.0-0.4); Eosinophils Percent Auto 28.3 % (0-4); Hematocrit 33.3 % (37.0-47.0); Hemoglobin 10.4 g/dl (12.0-16.0); Imm Gran Abs Auto 0.06 X10*3/uL (0.00-0.03); Imm Gran Pct Auto 0.5 % (0.0-0.4); Immature Retic Fraction 23.9 % (3.0-15.9); Lymphocytes Absolute Auto 1.4 X10*3/uL (1.2-4.9); Lymphocytes Percent Auto 11.8 % (20-40); MANUAL DIFF FLAG SCAN; Mean Corpuscular HGB Conc 31.2 g/dl (31.0-35.0); Mean Corpuscular Hemoglobin 30.4 pg (27.0-33.0); Mean Corpuscular Volume 97.4 fL (80.0-98.0); Mean Platelet Volume 9.8 fL (9.4-12.3); Monocytes Absolute Auto 0.8 X10*3/uL (0.1-1.2); Monocytes Percent Auto 6.6 % (2-11); Neutrophils Absolute Auto 6.3 x10*3/uL (2.0-8.3); Neutrophils Percent Auto 52.1 % (45-73); Platelet Count 379 X10*3/uL (160-400); Red Blood Count 3.42 X10*6/uL (4.20-5.50); Red Cell Distribution Width 15.7 % (11.0-16.0); Retic HGB Equivalent 35.2 pg (30.0-35.0); Reticulocytes Absolute 0.069 X10*6/uL (0.026-0.095); SCAN SMEAR FLAG 1; White Blood Count 12.1 X10*3/uL (4.8-10.8)
[2022-06-07 12:17] LABS: SLIDE REVIEW VERIFIED
[2022-06-07 13:20] LABS: Erythrocyte Sedimentation Rate 28 MM/HR (0-20)
[2022-06-07 15:12] LABS: Estimated Average Glucose 126 mg/dL
[2022-06-07 15:41] LABS: Alanine Aminotransferase 20 U/L (0-31); Albumin Level 3.4 g/dL (3.5-5.0); Alkaline Phosphatase 89 U/L (39-117); Anion Gap 13 (12-20); Aspartate Amino Transferase 22 U/L (5-31); Bilirubin Total 0.3 mg/dL (0.0-1.0); Blood Urea Nitrogen 18 mg/dL (9-16); C Reactive Protein 1.08 mg/dL (< or = 0.50); Carbon Dioxide 24 mmol/L (22-29); Chloride 108 mmol/L (96-108); Cholesterol 142 mg/dL; Estimated Glomerular Filt Rate > 60; Ferritin 161 ng/mL (10-250); Free T4 (Free Thyroxine) 0.92 ng/dL (0.71-1.85); Glucose Random 99 mg/dL (60-115); HDL Cholesterol 44 mg/dL; Iron 66 mcg/dL (30-160); LDL Cholesterol Calculated 74 mg/dl; Percent Iron Saturation 40 % (15-50); Potassium 4.4 mmol/L (3.3-5.1); Sodium 141 mmol/L (135-145); Thyroid Stimulating Hormone 1.59 uIU/mL (0.32-4.0); Total Iron Binding Capacity 164 mcg/dL (228-428); Total Protein 6.4 g/dL (6.5-8.0); Triglycerides 123 mg/dL; Unsaturated Iron Binding 98 ug/dL; Vitamin D 25-OH Total 47.1 ng/mL (>30)
[2022-06-07 15:55] LABS: Vitamin B12 348 pg/mL (200-900)
== END 2022-06-07 10:38 | disposition home or self-care (01) ==
LOC: HO.10HDL 10:37
PROVIDERS: Visit Provider Internal Medicine
DX: I62.9 Nontraumatic intracranial hemorrhage, unspecified (principal); E78.00 Pure hypercholesterolemia, unspecified; M81.0 Age-related osteoporosis without current pathological fracture; D64.9 Anemia, unspecified; R73.02 Impaired glucose tolerance (oral)
CPT/HCPCS: 36415; 80053; 80061; 82306; 82607; 82728; 82746; 83036; 83540; 84439; 84443; 85025; 85045; 85652; 86140

== ENCOUNTER 2022-06-11 13:30 | Outpatient (REF) | payer MEDICARE, SELFPAY | END 2022-06-11 13:31 | disposition home or self-care (01) | LOC: HO.LNP 13:30 | PROVIDERS: Visit Provider Allergy & Immunology | DX: D70.9 Neutropenia, unspecified (principal); R19.7 Diarrhea, unspecified | CPT/HCPCS: 87177; 87209 ==

== ENCOUNTER 2022-06-13 09:30 | Outpatient (REF) | payer MEDICARE, SELFPAY | END 2022-06-13 09:31 | disposition home or self-care (01) | LOC: HO.LNP 09:30 | PROVIDERS: Visit Provider Allergy & Immunology | DX: D70.9 Neutropenia, unspecified (principal); R19.7 Diarrhea, unspecified | CPT/HCPCS: 87177; 87209 ==

== ENCOUNTER 2022-06-14 16:30 | Outpatient (REF) | payer MEDICARE, SELFPAY | END 2022-06-14 16:31 | disposition home or self-care (01) | LOC: HO.LNP 16:30 | PROVIDERS: Orthopaedic Surgery; Visit Provider Allergy & Immunology | DX: D70.9 Neutropenia, unspecified (principal); R19.7 Diarrhea, unspecified | CPT/HCPCS: 87177; 87209 ==

== ENCOUNTER 2022-06-17 12:39 | Outpatient (REF) | payer MEDICARE, SELFPAY ==
[2022-06-17 14:32] LABS: Basophils Absolute Auto 0.1 X10*3/uL (0.0-0.2); Basophils Percent Auto 0.5 % (0-2); Eosinophils Absolute Auto 4.2 X10*3/uL (0.0-0.4); Eosinophils Percent Auto 31.8 % (0-4); Hematocrit 34.2 % (37.0-47.0); Hemoglobin 10.9 g/dl (12.0-16.0); Imm Gran Abs Auto 0.05 X10*3/uL (0.00-0.03); Imm Gran Pct Auto 0.4 % (0.0-0.4); Lymphocytes Absolute Auto 1.5 X10*3/uL (1.2-4.9); Lymphocytes Percent Auto 11.4 % (20-40); MANUAL DIFF FLAG SCAN; Mean Corpuscular HGB Conc 31.9 g/dl (31.0-35.0); Mean Corpuscular Hemoglobin 31.1 pg (27.0-33.0); Mean Corpuscular Volume 97.4 fL (80.0-98.0); Mean Platelet Volume 10.9 fL (9.4-12.3); Monocytes Absolute Auto 0.7 X10*3/uL (0.1-1.2); Monocytes Percent Auto 5.5 % (2-11); Neutrophils Absolute Auto 6.7 x10*3/uL (2.0-8.3); Neutrophils Percent Auto 50.4 % (45-73); Platelet Count 368 X10*3/uL (160-400); Red Blood Count 3.51 X10*6/uL (4.20-5.50); Red Cell Distribution Width 16.2 % (11.0-16.0); SCAN SMEAR FLAG 1; White Blood Count 13.2 X10*3/uL (4.8-10.8)
[2022-06-17 14:53] LABS: SLIDE REVIEW VERIFIED
[2022-06-17 15:08] LABS: Troponin-I High Sensitivity 4.9 ng/L (<3.5-17.0)
[2022-06-21 19:52] LABS: Immunoglobulin E 139 kU/L (<OR=114)
[2022-06-22 01:08] LABS: Immunoglobulin A 401 mg/dL (70-320); Immunoglobulin G 1256 mg/dL (600-1540); Immunoglobulin M 71 mg/dL (50-300)
[2022-06-22 13:34] LABS: Myeloperoxidase Antibody <1.0 AI; Proteinase 3 PR3 Antibodies <1.0 AI
[2022-06-23 18:29] LABS: Strongyloides Antibody IgG NEGATIVE
== END 2022-06-17 12:40 | disposition home or self-care (01) ==
LOC: HO.10HDL 12:39
PROVIDERS: Visit Provider Allergy & Immunology
DX: D72.10 Eosinophilia, unspecified (principal); R21 Rash and other nonspecific skin eruption; L29.9 Pruritus, unspecified
CPT/HCPCS: 36415; 82550; 82784; 82785; 83520; 84484; 85025; 86021; 86682

== ENCOUNTER 2022-06-24 13:37 | Outpatient (REF) | payer MEDICARE, SELFPAY ==
--- NOTE | ~2022-06-24 | XR_ITS ---
EXAMINATION: XR WRIST, LEFT CLINICAL INFORMATION: S63.502A - Unspecified sprain of left wrist, initial encounter COMPARISON: None TECHNIQUE: Left wrist is imaged in 4 views. FINDINGS: There is calcification involving the triangular fibrocartilage as well as the scapholunate lunate ligament and likely at the lunotriquetral ligament. There is some fine mineralization also suggested in the distal radial articular cartilage. There is no erosive change. No focal joint narrowing or subchondral sclerosis. The ulnar variance is neutral. There is no acute or healing fracture or dislocation or destructive process. XR/XR wrist LT min 3V IMPRESSION: 1. Chondrocalcinosis triangular fibrocartilage, scapholunate lunate ligament, and fine mineralization distal radial articular cartilage consistent with calcium pyrophosphate deposition (pseudogout). 2. No erosive changes, joint narrowing, or destructive process.
== END 2022-06-24 13:38 | disposition home or self-care (01) ==
LOC: HO.XRAY 13:37
PROVIDERS: Absent Provider Internal Medicine; PCP Internal Medicine; Visit Provider Internal Medicine
DX: S63.502A Unspecified sprain of left wrist, initial encounter (principal)
CPT/HCPCS: 73110

== ENCOUNTER 2022-07-13 10:59 | Outpatient (REF) | payer MEDICARE, SELFPAY ==
[2022-07-13 13:45] LABS: MANUAL DIFF FLAG NO
[2022-07-13 13:51] LABS: Basophils Absolute Auto 0.1 X10*3/uL (0.0-0.2); Eosinophils Absolute Auto 1.2 X10*3/uL (0.0-0.4); Eosinophils Percent Auto 8.4 % (0-4); Hematocrit 38.6 % (37.0-47.0); Imm Gran Abs Auto 0.09 X10*3/uL (0.00-0.03); Imm Gran Pct Auto 0.6 % (0.0-0.4); Lymphocytes Absolute Auto 1.3 X10*3/uL (1.2-4.9); Lymphocytes Percent Auto 9.2 % (20-40); Mean Corpuscular HGB Conc 31.1 g/dl (31.0-35.0); Mean Corpuscular Hemoglobin 31.1 pg (27.0-33.0); Mean Platelet Volume 10.9 fL (9.4-12.3); Monocytes Percent Auto 7.4 % (2-11); Neutrophils Absolute Auto 10.2 x10*3/uL (2.0-8.3); Neutrophils Percent Auto 73.4 % (45-73); Platelet Count 290 X10*3/uL (160-400); Red Blood Count 3.86 X10*6/uL (4.20-5.50)
== END 2022-07-13 11:00 | disposition home or self-care (01) ==
LOC: HO.10HDL 10:59
PROVIDERS: Visit Provider Allergy & Immunology
DX: D72.10 Eosinophilia, unspecified (principal); R21 Rash and other nonspecific skin eruption
CPT/HCPCS: 36415; 80053; 85025

== ENCOUNTER 2022-08-12 11:45 | Outpatient (REF) | payer MEDICARE, SELFPAY ==
[2022-08-12 13:43] LABS: MANUAL DIFF FLAG NO
[2022-08-12 13:50] LABS: Basophils Absolute Auto 0.1 X10*3/uL (0.0-0.2); Basophils Percent Auto 1.1 % (0-2); Eosinophils Percent Auto 8.4 % (0-4); Hematocrit 40.3 % (37.0-47.0); Hemoglobin 12.4 g/dl (12.0-16.0); Imm Gran Pct Auto 0.8 % (0.0-0.4); Lymphocytes Absolute Auto 1.2 X10*3/uL (1.2-4.9); Lymphocytes Percent Auto 9.6 % (20-40); Mean Corpuscular HGB Conc 30.8 g/dl (31.0-35.0); Mean Corpuscular Hemoglobin 30.7 pg (27.0-33.0); Mean Corpuscular Volume 99.8 fL (80.0-98.0); Mean Platelet Volume 10.8 fL (9.4-12.3); Monocytes Absolute Auto 0.8 X10*3/uL (0.1-1.2); Monocytes Percent Auto 6.6 % (2-11); Neutrophils Absolute Auto 9.1 x10*3/uL (2.0-8.3); Neutrophils Percent Auto 73.5 % (45-73); Platelet Count 235 X10*3/uL (160-400); Red Blood Count 4.04 X10*6/uL (4.20-5.50); Red Cell Distribution Width 15.1 % (11.0-16.0); White Blood Count 12.4 X10*3/uL (4.8-10.8)
[2022-08-12 14:36] LABS: Alanine Aminotransferase 27 U/L (0-31); Alkaline Phosphatase 66 U/L (39-117); Anion Gap 13 (12-20); Aspartate Amino Transferase 23 U/L (5-31); Bilirubin Total 0.3 mg/dL (0.0-1.0); Blood Urea Nitrogen 23 mg/dL (9-16); Carbon Dioxide 28 mmol/L (22-29); Chloride 107 mmol/L (96-108); Estimated Glomerular Filt Rate > 60; Glucose Random 91 mg/dL (60-115); Potassium 4.7 mmol/L (3.3-5.1); Sodium 143 mmol/L (135-145); Total Protein 7.1 g/dL (6.5-8.0)
[2022-08-12 14:41] LABS: Thyroid Stimulating Hormone 2.01 uIU/mL (0.32-4.0)
== END 2022-08-12 11:46 | disposition home or self-care (01) ==
LOC: HO.10HDL 11:45
PROVIDERS: Visit Provider Internal Medicine
DX: I10 Essential (primary) hypertension (principal)
CPT/HCPCS: 36415; 80053; 84443; 85025

== ENCOUNTER 2022-09-16 13:06 | Outpatient (REF) | payer MEDICARE, SELFPAY ==
--- NOTE | ~2022-09-16 | US_ITS ---
EXAMINATION: ULTRASOUND OF KIDNEYS WITH RENAL ARTERY DOPPLER CLINICAL INFORMATION: Essential hypertension. COMPARISON: Ultrasound of the abdomen 08/23/2018, CT of the abdomen and pelvis 09/21/2013. TECHNIQUE: Ultrasound of the kidneys was performed along with color flow Doppler imaging and velocity measurements in the proximal mid and distal renal arteries. Aortic velocities were measured and renal/aortic ratios were calculated. Interlobar resistive indices were measured bilaterally. FINDINGS: The kidneys appeared normal with the right kidney measuring 8.8 x 5.4 x 4.8 cm and the left kidney measuring 8.6 x 4.7 x 4.9 cm. Right-sided benign Bosniak class I renal cysts are present which need no additional imaging or follow up. This has been noted in the past. No solid renal masses, renal stones or hydronephrosis is seen. Renal cortical thickness appears normal. Velocity measurements in the proximal mid and distal renal arteries are normal. Velocity in the aorta is normal at 69 cm/s and, therefore, the renal aortic ratios are normal at 2.3 on the right and 2.2 on the left. Resistive indices are minimally elevated with the highest value on the right at 0.87 and the highest value on the left at 0.85 (normal is less then 0.80). US/US renal doppler IMPRESSION: No evidence to suggest renal artery stenosis. Some borderline increase in interlobar resistive indices as described above.
--- NOTE | ~2022-09-16 | US_ITS ---
EXAMINATION: ULTRASOUND OF KIDNEYS WITH RENAL ARTERY DOPPLER CLINICAL INFORMATION: Essential hypertension. COMPARISON: Ultrasound of the abdomen 08/23/2018, CT of the abdomen and pelvis 09/21/2013. TECHNIQUE: Ultrasound of the kidneys was performed along with color flow Doppler imaging and velocity measurements in the proximal mid and distal renal arteries. Aortic velocities were measured and renal/aortic ratios were calculated. Interlobar resistive indices were measured bilaterally. FINDINGS: The kidneys appeared normal with the right kidney measuring 8.8 x 5.4 x 4.8 cm and the left kidney measuring 8.6 x 4.7 x 4.9 cm. Right-sided benign Bosniak class I renal cysts are present which need no additional imaging or follow up. This has been noted in the past. No solid renal masses, renal stones or hydronephrosis is seen. Renal cortical thickness appears normal. Velocity measurements in the proximal mid and distal renal arteries are normal. Velocity in the aorta is normal at 69 cm/s and, therefore, the renal aortic ratios are normal at 2.3 on the right and 2.2 on the left. Resistive indices are minimally elevated with the highest value on the right at 0.87 and the highest value on the left at 0.85 (normal is less then 0.80). US/US renal BI IMPRESSION: No evidence to suggest renal artery stenosis. Some borderline increase in interlobar resistive indices as described above.
== END 2022-09-16 13:07 | disposition home or self-care (01) ==
LOC: HO.US 13:06
PROVIDERS: PCP Internal Medicine; Visit Provider Internal Medicine
DX: I10 Essential (primary) hypertension (principal)
CPT/HCPCS: 76775; 93975

== ENCOUNTER 2022-09-17 12:45 | Outpatient (REF) | payer MEDICARE, SELFPAY ==
[2022-09-17 14:04] LABS: Appearance Urine Clear; Color Urine Yellow; Glucose Urine UA Negative (Negative); Leukocyte Esterase Urine Small (1+) (Negative); Nitrite Urine Positive (Negative); PH 5.5 (5.0-9.0); Specific Gravity - Urine 1.015 (1.005-1.025); UMIC TRIGGER UA YES; Urine Blood Negative (Negative); Urine Ketones Negative (Negative); Urine Protein Negative (Neg-Trace)
[2022-09-17 14:09] LABS: Bacteria Urine 4+ (None Seen); Hyaline Casts Urine 0-2 /LPF (0-2); RBC Urine 0-2 /HPF (0-2)
== END 2022-09-17 12:46 | disposition home or self-care (01) ==
LOC: HO.WFDLNP 12:45
PROVIDERS: Visit Provider Internal Medicine
DX: I10 Essential (primary) hypertension (principal)
CPT/HCPCS: 81001

== ENCOUNTER 2022-11-19 11:47 | Outpatient (REF) | payer MEDICARE, SELFPAY ==
--- NOTE | ~2022-11-19 | US_ITS ---
EXAMINATION: US VENOUS ULTRASOUND WITH DOPPLER LOWER EXTREMITY, LEFT CLINICAL INFORMATION: Left leg swelling and pain COMPARISON: None available. TECHNIQUE: Ultrasound of the deep veins is performed from the hip to the calf with compression sonography and color and pulse Doppler assessment. Spectral analysis with color-flow imaging is performed. FINDINGS: There is noncompressible common femoral vein, superficial femoral vein and popliteal vein consistent with deep venous thrombosis. The left greater saphenous and profunda veins are compressible. There is no Keys's cyst If the patient's symptoms persist, followup ultrasound in 5 days 7 days might be of value to exclude proximal propagation from a non-visualized calf vein. US/US venous duplex LE IMPRESSION: Positive DVT demonstrated in the left lower extremity.
== END 2022-11-19 11:48 | disposition home or self-care (01) ==
LOC: HO.US 11:47
PROVIDERS: PCP Internal Medicine; Visit Provider Internal Medicine
DX: Z13.89 Encounter for screening for other disorder (principal)
CPT/HCPCS: 93971

== ENCOUNTER 2022-11-19 12:20 | Emergency (ER) | payer MEDICARE, SELFPAY ==
--- NOTE | 2022-11-19 12:36 | ED_ITS ---
HPI - Extremity Problem General Chief complaint: General Medical Stated complaint: DVT+ Time Seen by Provider: 11/19/22 12:33 Source: patient Mode of arrival: ambulatory Limitations: no limitations History of Present Illness HPI Narrative: Patient seen by Dr. ZAMUDIO and sent for US of leg which shows left DVT MD Complaint: extremity pain and extremity swelling Onset (ago): week(s) Related Data Home Medications Medication Instructions Recorded Confirmed vitamins A,C,J-qltw-ugorpf 4,296 1 cap PO DAILY 04/15/21 11/19/22 mcg-226 mg-90 mg capsule (PreserVision AREDS) aspirin 81 mg tablet,delayed 81 mg PO DAILY 05/25/22 11/19/22 release cholecalciferol (vitamin D3) 50 50 mcg PO DAILY 05/25/22 11/19/22 mcg (2,000 unit) capsule trazodone 50 mg tablet 50 mg PO BEDTIME 05/27/22 11/19/22 lisinopril 40 mg tablet 40 mg PO DAILY 11/19/22 11/19/22 prednisone 5 mg tablet 10 mg PO DAILY 11/19/22 11/19/22 Previous Rx's Medication Instructions Recorded triamcinolone acetonide 0.1 % 1 appl topical BID #80 grams 05/25/22 topical cream atorvastatin 20 mg tablet 20 mg PO BEDTIME 90 days #90 tabs 06/10/22 baclofen 10 mg tablet 5 mg PO TID 90 days #135 tabs 06/10/22 mirtazapine 15 mg tablet 7.5 mg PO BEDTIME 90 days #45 tabs 06/10/22 metoprolol tartrate 50 mg tablet 50 mg PO BID 90 days #180 tabs 07/26/22 hydrochlorothiazide 12.5 mg tablet 12.5 mg PO DAILY #30 tabs 11/19/22 hydroxyzine HCl 25 mg tablet 12.5 mg PO BEDTIME PRN itching 90 11/19/22 days #270 tabs rivaroxaban 15 mg (42)-20 mg (9) See Rx Instructions PO .COMPLEX 11/19/22 tablets in a starter pack (Xarelto #51 ea DVT-PE Treatment 30-Day Starter) Allergies Allergy/AdvReac Type Severity Reaction Status Date / Time Penicillins [PENICILLINS] Allergy Severe THROAT Verified 11/19/22 12:38 SWELLS Iodinated Contrast Media Allergy Intermediate Rash Verified 11/19/22 12:38 penicillin V Allergy Unknown Throat Verified 11/19/22 12:38 Swells carvedilol AdvReac Intermediate rash Verified 11/19/22 12:38 cyclosporine AdvReac Intermediate hypertensiv Verified 11/19/22 12:38 e Review of Systems Review of Systems: Yes all other systems are reviewed and are negative Musculoskeletal: Comments: left leg pain and swelling Neurologic: Reports Sensory deficit (Neuro) [facility] Past Medical History Medical History Abnormal cardiac function test Adult general medical exam CAD (coronary artery disease) GERD (gastroesophageal reflux disease) Hypercholesterolemia Hypertension Insomnia Post-menopausal Rash SOB (shortness of breath) on exertion Surgical History History of cardiac cath History of colonoscopy No pertinent past surgical history Family History Family History Father Heart disease Prostate cancer Colon cancer CVD (cardiovascular disease) Diabetes Mother Ovarian cancer Gout Sister Ovarian cancer Social History Social History Housing: House Alcohol intake: former Patient Tobacco Use Status: Former Tobacco user Quit Date: 1989 Smoked: 30 +/- Smoked in Last 30 Days: No e-Cigarette/Vaping Use: Never Used Second Hand Smoke Exposure: No Use of substances other than those prescribed or required for medical reasons: No Advance Directives: No Current occupational status: retired Cognitive needs: Yes Hearing needs: No Vision needs: Yes Physical Exam Vital Signs: Vital Signs: Last Vital Signs Temp 98.4 F 11/19/22 12:39 Pulse 81 11/19/22 12:44 Resp 16 11/19/22 12:44 BP 150/62 H 11/19/22 12:39 Pulse Ox 95 11/19/22 12:39 O2 Del Method Room Air 11/19/22 12:39 BMI result Body Mass Index 26.4 Const: Other: patient chronically ill appearing with left hemiparesis Nutritional Appearance: average body habitus Orientation/consciousness: oriented to person and patient oriented x3 Limitations: no limitations HEENT: Head: Yes normal to inspection Ears: external ears normal General nose exam: Normal external nose present Mouth: Normal oral and palatal mucosa present and oropharynx normal Throat: Yes posterior oropharynx normal Eyes: General: appearance normal, both eyes and all related structures Neck: Other: supple Neck: Yes normal visual inspection Chest: Chest palpation & inspection: normal inspection of the chest Resp: Auscultation: clear to auscultation bilaterally Cardio: Jugular venous distension: no JVD Rate: regular rate Rhythm: regular rhythm Heart sounds: S1 normal heart sound present and S2 normal heart sound present GI: Inspection: Yes normal to inspection Palpation (GI): Soft to palpation, nontender and No hepatosplenomegaly present Auscultation: normal bowel sounds : General: Yes no CVA tenderness Back/Spine/Pelvis: Back: no CVA tenderness Skin: General skin exam: no rashes or lesions noted Neuro: Other: left hemiparesis old General: oriented to person and patient oriented x3 Sensory Exam: Sensory deficit (Neuro) Extrem: Other: left leg pain and swelling Psych: Appearance: grossly normal Course Reevaluation(s) Reevaluation #1: Patient had hypertensive bleed in July, discussed with Dr. Zamudio, will start fernandez Time: 14:18 Medical Decision Making Differential Diagnosis Differential Diagnoses: The differential diagnosis associated with the presentation includes (DVT, bakers cyst,sciatica) Consult Healthcare Provider Management of the patient was discussed with: Crematory Attendant (Dr. ZAMUDIO) Lab Data 11/19/22 13:18 11/19/22 13:18 Labs: Lab Results 11/19/22 11/19/22 11/19/22 Range/Units 13:18 13:18 13:18 WBC 11.3 H (4.8-10.8) X10*3/uL RBC 4.00 L (4.20-5.50) X10*6/uL Hgb 12.2 (12.0-16.0) g/dl Hct 38.7 (37.0-47.0) % MCV 96.8 (80.0-98.0) fL MCH 30.5 (27.0-33.0) pg MCHC 31.5 (31.0-35.0) g/dl RDW 14.9 (11.0-16.0) % Plt Count 281 (160-400) X10*3/uL MPV 9.2 L (9.4-12.3) fL Immature Gran % (Auto) 1.3 H (0.0-0.4) % Neut % (Auto) 69.8 (45-73) % Lymph % (Auto) 12.0 L (20-40) % [place] % (Auto) 7.1 (2-11) % Eos % (Auto) 8.9 H (0-4) % Baso % (Auto) 0.9 (0-2) % Lymph # (Auto) 1.4 (1.2-4.9) X10*3/uL [place] # (Auto) 0.8 (0.1-1.2) X10*3/uL Eos # (Auto) 1.0 H (0.0-0.4) X10*3/uL Baso # (Auto) 0.1 (0.0-0.2) X10*3/uL Abs Immat Gran (auto) 0.15 H (0.00-0.03) X10*3/uL Absolute Neuts (auto) 7.9 (2.0-8.3) x10*3/uL Absolute Nucleated RBC 0.000 (0.0-0.012) X10*3/uL Nucleated RBC % (auto) 0.0 (0.0-0.2) /100WBC PT 10.0 (10.0-13.1) SEC INR 0.9 (0.9-1.1) APTT 27.9 (26.0-36.4) SEC Sodium 142 (135-145) mmol/L Potassium 4.5 (3.3-5.1) mmol/L Chloride 107 (96-108) mmol/L Carbon Dioxide 27 (22-29) mmol/L Anion Gap 13 (12-20) BUN 28 H (9-16) mg/dL Creatinine 1.10 (0.5-1.4) mg/dL Estim Creat Clear Calc 40.5 Estimated GFR 48 Random Glucose 91 (60-115) mg/dL Calcium 8.8 (8.4-10.2) mg/dL Radiology Impression Discussion of test interpretation with radiology: I have reviewed the radiologist's reading. (reviewed the ultrasound that was done as an outpatient) Independent Historian Clinical information obtained from an independent historian. History obtained from or confirmed by: Spouse Discharge Plan Discharge Clinical Impression: DVT (deep venous thrombosis) Patient Disposition: Home, Self-Care Instructions: Deep Vein Thrombosis (ED), Blood Thinners (ED) Prescriptions: New Xarelto DVT-PE Treat 30d Start 15 mg (42)- 20 mg (9) tablets,dose pack See Rx Instructions .ROUTE .COMPLEX Qty: 51 0RF Rx Instructions: take one-15 mg tablet twice daily for 21 days, then one-20 mg tablet once daily; must take with meal/food No Action trazodone 50 mg tablet 50 mg PO BEDTIME baclofen 10 mg tablet 5 mg PO TID 90 Days Qty: 135 1RF atorvastatin 20 mg tablet 20 mg PO BEDTIME 90 Days Qty: 90 1RF mirtazapine 15 mg tablet 7.5 mg PO BEDTIME 90 Days Qty: 45 1RF metoprolol tartrate 50 mg tablet 50 mg PO BID 90 Days Qty: 180 2RF PreserVision AREDS 14,320-226-200 [id number] capsule 1 cap PO DAILY cholecalciferol (vitamin D3) 50 mcg (2,000 unit) capsule 50 mcg PO DAILY aspirin 81 mg tablet,delayed release (DR/EC) 81 mg PO DAILY triamcinolone acetonide 0.1 % cream 1 appl topical BID Qty: 80 0RF hydrochlorothiazide 12.5 mg tablet 12.5 mg PO DAILY Qty: 30 0RF prednisone 5 mg tablet 10 mg PO DAILY lisinopril 40 mg tablet 40 mg PO DAILY hydroxyzine HCl 25 mg tablet 12.5 mg PO BEDTIME PRN (Reason: itching) 90 Days Qty: 270 3RF Rx Instructions: 1/2 tab AM, 1/2 tab 5 pm and 2 tabs bedtime Referrals: Po,Lucas Chavarria MD [Primary Care Provider] - 3 days
[2022-11-19 12:39] VITALS: BP 150/62; PULSE 81; RESP 16; TEMP 36.9; O2SAT 95; BMI 26.4
[2022-11-19 12:44] VITALS: PULSE 81; RESP 16
[2022-11-19 13:23] LABS: MANUAL DIFF FLAG NO
[2022-11-19 13:25] LABS: Basophils Absolute Auto 0.1 X10*3/uL (0.0-0.2); Basophils Percent Auto 0.9 % (0-2); Eosinophils Percent Auto 8.9 % (0-4); Hematocrit 38.7 % (37.0-47.0); Hemoglobin 12.2 g/dl (12.0-16.0); Imm Gran Abs Auto 0.15 X10*3/uL (0.00-0.03); Imm Gran Pct Auto 1.3 % (0.0-0.4); Lymphocytes Absolute Auto 1.4 X10*3/uL (1.2-4.9); Mean Corpuscular HGB Conc 31.5 g/dl (31.0-35.0); Mean Corpuscular Hemoglobin 30.5 pg (27.0-33.0); Mean Corpuscular Volume 96.8 fL (80.0-98.0); Mean Platelet Volume 9.2 fL (9.4-12.3); Monocytes Absolute Auto 0.8 X10*3/uL (0.1-1.2); Monocytes Percent Auto 7.1 % (2-11); Neutrophils Absolute Auto 7.9 x10*3/uL (2.0-8.3); Neutrophils Percent Auto 69.8 % (45-73); Platelet Count 281 X10*3/uL (160-400); Red Cell Distribution Width 14.9 % (11.0-16.0); White Blood Count 11.3 X10*3/uL (4.8-10.8)
[2022-11-19 13:35] LABS: INTERNATIONAL NORM RATIO 0.9 (0.9-1.1)
[2022-11-19 13:37] LABS: Partial Thromboplastin Time 27.9 SEC (26.0-36.4)
[2022-11-19 13:42] LABS: Anion Gap 13 (12-20); Blood Urea Nitrogen 28 mg/dL (9-16); Calcium 8.8 mg/dL (8.4-10.2); Carbon Dioxide 27 mmol/L (22-29); Chloride 107 mmol/L (96-108); Creatinine Clr Calc Pharmacy 40.5; Estimated Glomerular Filt Rate 48; Glucose Random 91 mg/dL (60-115); Potassium 4.5 mmol/L (3.3-5.1); Sodium 142 mmol/L (135-145)
[2022-11-19 14:33] VITALS: BP 131/58; PULSE 77; RESP 18; O2SAT 94
[2022-11-19] MEDS: Rivaroxaban 15 MG TABLET PO (15:08)
== END 2022-11-19 15:18 | disposition home or self-care (01) ==
PROVIDERS: Emergency Provider Emergency Medicine; PCP Internal Medicine
DX: I82.402 Acute embolism and thrombosis of unspecified deep veins of left lower extremity (principal); I10 Essential (primary) hypertension; E78.00 Pure hypercholesterolemia, unspecified; R06.02 Shortness of breath; Z79.02 Long term (current) use of antithrombotics/antiplatelets; Z79.899 Other long term (current) drug therapy
CPT/HCPCS: 36415; 80048; 85025; 85610; 85730; 93971; 99284

== ENCOUNTER → 2022-12-16 13:57 | Outpatient (BNVA) | payer MEDICARE, SELFPAY | PROVIDERS: PCP Internal Medicine; Referring Provider Internal Medicine; Visit Provider Nurse Practitioner Family | DX: I25.10 Atherosclerotic heart disease of native coronary artery without angina pectoris (principal); I10 Essential (primary) hypertension; I62.9 Nontraumatic intracranial hemorrhage, unspecified; I82.402 Acute embolism and thrombosis of unspecified deep veins of left lower extremity; E78.00 Pure hypercholesterolemia, unspecified; R06.02 Shortness of breath; Z98.890 Other specified postprocedural states | CPT/HCPCS: 93005; 99212 ==

== ENCOUNTER 2023-03-09 10:54 | Outpatient (AMB) | payer MEDICARE, SELFPAY ==
--- NOTE | 2023-03-09 11:02 | A.OFFPC_ITS ---
Vital Signs 03/09/23 11:04 Height 5 ft 6 in Weight 170 lb 3.15 oz BMI 27.5 BP 130/52 L Blood Pressure Location Rt brachial Position Sitting Pulse 75 Pulse Source Pulse Oximeter Pulse Oximetry (%) 96 Oxygen Delivery Method Room Air Intake Visit Reasons: CVA left-sided weakness, GERD, hypertension Intake Note: Patient is here to follow up on CVA left side weakness, GERD and HTN. Rx Specialist Required: No Accompanied by: Spouse Allergies Penicillins [PENICILLINS] Allergy (Severe, Verified 03/09/23 11:08) THROAT SWELLS Iodinated Contrast Media Allergy (Intermediate, Verified 03/09/23 11:08) Rash penicillin V Allergy (Unknown, Verified 03/09/23 11:08) Throat Swells carvedilol Adverse Reaction (Intermediate, Verified 03/09/23 11:08) rash cyclosporine Adverse Reaction (Intermediate, Verified 03/09/23 11:08) hypertensive Medication List - Last Reconciled 03/09/23 by Lucas Moore MD [left leg brace, from her knee to her ankle As directed] atorvastatin 20 mg PO BEDTIME baclofen 5 mg (1/2 x 10 mg) PO TID 90 days cyclosporine modified 25 mg PO BID furosemide 40 mg in am and 20 mg at 3 pm orally; hydroxyzine HCl 1/2 tab AM, 1/2 tab 5 pm and 2 tabs bedtime [LEFT AFO LEFT HEMIPARESIS] lisinopril 40 mg PO DAILY metoprolol tartrate 50 mg PO BID 90 days mirtazapine 15 mg PO BEDTIME rivaroxaban (Xarelto) 20 mg PO DAILY 90 days trazodone 50 mg PO BEDTIME vitamins A,C,D-lrfi-ahvmxa 4,296 mcg-226 mg-90 mg (PreserVision AREDS) 1 cap PO DAILY Tobacco use date assessed: 11/19/22 Fall risk assessment: No Falls in past year Last assessed Fall Risk: 03/09/23 Dental Screening Dental Screen Date: 03/09/23 Did you have a dental visit in the last 12 months?: No Did you have a dental problem in the last 6 months where you did not have access to dental care?: No Was dental information given to patient?: Patient has dentist HPI CVA left-sided weakness, GERD, hypertension HPI Details 82-year-old overweight female with a history of CVA with intracranial hemorrhage CAD impaired glucose tolerance GERD hypertension hypercholesterolemia coming in for follow-up. Last seen in November 2022. Bone density is due, mammogram is due. Review of the notes February 2023 seen nephrology referral for the blood pressure continue to monitor patient has been on furosemide and was advised to stop hydrochlorothiazide patient has a strong suspicion for renal artery stenosis patient takes cyclosporine 25 mg twice a day. 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 With the pruritus patient is followed up by allergy and immunology diagnosis of hypersensitivity dermatitis eosinophilic E a no benefit from the PICC sent low- dose o'clock sprain recommended decrease prednisone advised. Follow-up ultrasound of the lower extremity and the left having decreased venous thrombosis but has a residual partially occlusive thrombus in the left femoral vein but resolution on popliteal vein this was done January 2023. On Xarelto Patient also followed up with Cardiology December 2022 echocardiogram September 2021 normal biventricular function exercise nuclear stress normal myocardial perfusion underwent cardiac catheterization October 2021 mild nonobstructive CAD [facility] Medical History (Updated 03/09/23 @ 11:22 by Lucas Moore MD) Abnormal cardiac function test Adult general medical exam CAD (coronary artery disease) GERD (gastroesophageal reflux disease) Hypercholesterolemia Hypertension Insomnia Left leg swelling Post-menopausal Rash SOB (shortness of breath) on exertion Surgical History History of cardiac cath History of colonoscopy No pertinent past surgical history Family History Father Heart disease Prostate cancer Colon cancer CVD (cardiovascular disease) Diabetes Mother Ovarian cancer Gout Sister Ovarian cancer Social History Housing: House Alcohol intake: former Patient Tobacco Use Status: Former Tobacco user Quit Date: 1989 Years Smoked: 30 +/- e-Cigarette/Vaping Use: Never Used Second Hand Smoke Exposure: No Current occupational status: retired Cognitive needs: Yes Hearing needs: No Vision needs: Yes Questionnaire PHQ-9 Over the last 2 weeks, how often have you been bothered by any of the following problems? 1. Little interest or pleasure in doing things: not at all 2. Feeling down, depressed, or hopeless: not at all 3. Trouble falling or staying asleep, or sleeping too much: not at all 4. Feeling tired or having little energy: not at all 5. Poor appetite or overeating: not at all 6. Feeling bad about yourself - or that you are a failure or have let yourself or your family down: not at all 7. Trouble concentrating on things, such as reading the newspaper or watching television: not at all 8. Moving or speaking so slowly that other people could have noticed. Or the opposite - being so fidgety or restless that you have been moving around a lot more than usual: not at all 9. Thoughts that you would be better off or of hurting yourself in some way: not at all Total score: 0 Depression Screening Interpretation: Negative Source: Developed by Drs. Doug Boone, Rachelle Calvo, Eran monterroso nd colleagues, with an educational juliet from [employer]. Thrive Questionnaire Date Thrive assessed: 08/12/22 ROSIE-7 AMB Questionnaire ROSIE-7 Date ROSIE - 7 assessed: 08/12/22 Source: Developed by Drs. Doug Boone, Rachelle Calvo, Eran Weller and colleagues, with an educational juliet from [employer]. Physical exam (Primary Care) Vital Signs: Last Vital Signs Pulse 75 03/09/23 11:04 BP 130/52 L 03/09/23 11:04 Pulse Ox 96 03/09/23 11:04 Oxygen Delivery Method Room Air 03/09/23 11:04 Care Plan Goal for BP management: L leg 4/5 R 5/5 +2 leg edema bilateral tender on palpation of the legs BMI result Body Mass Index 27.5 Tobacco/Smoking Status: Tobacco use Status Tobacco use date assessed 11/19/22 03/09/23 11:02 Patient Tobacco Use Status Former Tobacco user 03/09/23 11:02 e-Cigarette/Vaping Use Never Used 03/09/23 11:02 PHQ-9: PHQ-9 Score PHQ-9: Total score 0 03/09/23 11:12 Depression Screening Interpretation: Negative Thrive Assessment: Date of Thrive Assessment Date Thrive assessed 08/12/22 03/09/23 11:02 Const General: alert; No acute distress Eyes Conjunctivae: conjunctivae normal Resp Auscultation: clear to auscultation bilaterally Cardio Rate: regular rate Rhythm: regular rhythm GI Inspection: Yes normal to inspection Assessment and Plan Assessment & Plan (1) Hypertension: Code(s): I10 - Essential (primary) hypertension Qualifiers: Hypertension type: unspecified Qualified Code(s): I10 - Essential (primary) hypertension Plan: Continue with blood pressure medication. Decrease salt intake and exercise patient has met with Nephrology presently on metoprolol tartrate 50 mg twice a day lisinopril 40 mg once a day hydrochlorothiazide was discontinued and placed on Lasix 40 mg in the morning and 20 mg in the evening (2) Hypercholesterolemia: Code(s): E78.00 - Pure hypercholesterolemia, unspecified Plan: Avoid fried foods, chicken skin, eggs, butter margarine, pastries and meat. Be it pork or beef they have a lot of cholesterol LDL goal of less than 70 last blood work was in May 2022 (3) Impaired glucose tolerance: Code(s): R73.02 - Impaired glucose tolerance (oral) Plan: Decrease the amount of carbohydrate intake, pasta, bread, rice and potatoes are all sugar and that is aside from all the sweet stuff, remember that fruits are good but they are Sweet also. (4) Intracranial hemorrhage: Comment: [place] right basal ganglia/external capsule hematoma, oval shaped and measures 2.3 cm in diameter without midline shift. L sided weakness Code(s): I62.9 - Nontraumatic intracranial hemorrhage, unspecified Plan: Rehab, continue with anticoagulation (5) CAD (coronary artery disease): Comment: Cardiac catheterization October 2021 nonobstructive Code(s): I25.10 - Atherosclerotic heart disease of [place] coronary artery without angina pectoris Plan: Control the cholesterol, weight, blood pressure, although cardiac catheterization October 2021 nonobstructive (6) Left leg DVT: Comment: 11/19/2022 Code(s): I82.402 - Acute embolism and thrombosis of unspecified deep veins of left lower extremity Plan: Continue with anticoagulation (7) Pruritus: Code(s): L29.9 - Pruritus, unspecified Plan: Lowering prednisone and started on cyclosporin at a lower dose by the allergy immunology Orders: Orders Vitamin B12 and Folate 3 Months I82.402 - Acute embolism and thrombosis of unspecified deep veins of left lower extremity Comprehensive Met. Panel 3 Months I82.402 - Acute embolism and thrombosis of unspecified deep veins of left lower extremity Lipid Panel 3 Months E78.00 - Pure hypercholesterolemia, unspecified, I82.402 - Acute embolism and thrombosis of unspecified deep veins of left lower extremity Free T4 (Free Thyroxine) 3 Months I82.402 - Acute embolism and thrombosis of unspecified deep veins of left lower extremity Thyroid Stimulating Hormone 3 Months I82.402 - Acute embolism and thrombosis of unspecified deep veins of left lower extremity Complete Blood Count Auto Diff 3 Months I82.402 - Acute embolism and thrombosis of unspecified deep veins of left lower extremity B Type Natriuretic Peptide 3 Months I82.402 - Acute embolism and thrombosis of unspecified deep veins of left lower extremity Vitamin D 25-OH Total 3 Months I82.402 - Acute embolism and thrombosis of un specified deep veins of left lower extremity Coding Level of Care Code Est Pt Level 4 (20318) Diagnoses Hypertension I10 Hypertension type: unspecified Hypercholesterolemia E78.00 Impaired glucose tolerance R73.02 Intracranial hemorrhage I62.9 CAD (coronary artery disease) I25.10 Left leg DVT I82.402 Pruritus L29.9
[2023-03-09 11:04] VITALS: BP 130/52; PULSE 75; O2SAT 96; BMI 27.5
== END 2023-03-09 11:43 | disposition home or self-care (01) ==
PROVIDERS: Visit Provider Internal Medicine
DX: I10 Essential (primary) hypertension (principal); I62.9 Nontraumatic intracranial hemorrhage, unspecified; I82.402 Acute embolism and thrombosis of unspecified deep veins of left lower extremity; E78.00 Pure hypercholesterolemia, unspecified; R73.02 Impaired glucose tolerance (oral); I25.10 Atherosclerotic heart disease of native coronary artery without angina pectoris; L29.9 Pruritus, unspecified
CPT/HCPCS: 99214

== ENCOUNTER 2023-05-20 09:03 | Outpatient (REF) | payer MEDICARE, SELFPAY ==
[2023-05-20 09:36] LABS: MANUAL DIFF FLAG NO
[2023-05-20 10:04] LABS: Basophils Absolute Auto 0.1 X10*3/uL (0.0-0.2); Basophils Percent Auto 1.2 % (0-2); Eosinophils Absolute Auto 0.4 X10*3/uL (0.0-0.4); Eosinophils Percent Auto 6.1 % (0-4); Hematocrit 35.3 % (37.0-47.0); Hemoglobin 11.3 g/dl (12.0-16.0); Imm Gran Abs Auto 0.02 X10*3/uL (0.00-0.03); Imm Gran Pct Auto 0.4 % (0.0-0.4); Lymphocytes Absolute Auto 1.4 X10*3/uL (1.2-4.9); Lymphocytes Percent Auto 24.7 % (20-40); Mean Corpuscular Hemoglobin 30.1 pg (27.0-33.0); Mean Corpuscular Volume 93.9 fL (80.0-98.0); Mean Platelet Volume 9.8 fL (9.4-12.3); Monocytes Absolute Auto 0.5 X10*3/uL (0.1-1.2); Monocytes Percent Auto 9.5 % (2-11); Neutrophils Absolute Auto 3.3 x10*3/uL (2.0-8.3); Neutrophils Percent Auto 58.1 % (45-73); Platelet Count 402 X10*3/uL (160-400); Red Blood Count 3.76 X10*6/uL (4.20-5.50); Red Cell Distribution Width 13.7 % (11.0-16.0); White Blood Count 5.7 X10*3/uL (4.8-10.8)
[2023-05-20 10:24] LABS: Estimated Average Glucose 128 mg/dL; Hemoglobin A1c % 6.1 % (<6.0)
[2023-05-20 10:26] LABS: B Type Natriuretic Peptide 43 pg/mL (<100)
[2023-05-20 10:33] LABS: Alanine Aminotransferase 13 U/L (0-31); Albumin Level 3.9 g/dL (3.5-5.0); Alkaline Phosphatase 73 U/L (39-117); Anion Gap 15 (12-20); Aspartate Amino Transferase 22 U/L (5-31); Bilirubin Total 0.6 mg/dL (0.0-1.0); Blood Urea Nitrogen 34 mg/dL (9-16); Calcium 9.4 mg/dL (8.4-10.2); Carbon Dioxide 29 mmol/L (22-29); Chloride 100 mmol/L (96-108); Cholesterol 229 mg/dL (<200); Estimated Glomerular Filt Rate 33; Glucose Random 111 mg/dL (60-115); HDL Cholesterol 50 mg/dL (>40); LDL Cholesterol Calculated 143 mg/dL (<100); Potassium 4.1 mmol/L (3.3-5.1); Sodium 140 mmol/L (135-145); Total Protein 7.5 g/dL (6.5-8.0); Triglycerides 181 mg/dL (<150)
[2023-05-20 10:49] LABS: Free T4 (Free Thyroxine) 0.95 ng/dL (0.71-1.85); Thyroid Stimulating Hormone 1.82 uIU/mL (0.32-4.0); Vitamin D 25-OH Total 52.6 ng/mL (>30)
[2023-05-20 11:11] LABS: Appearance Urine Clear; Color Urine Yellow; Glucose Urine UA Negative (Negative); Leukocyte Esterase Urine Moderate (2+) (Negative); Nitrite Urine Negative (Negative); Specific Gravity - Urine 1.015 (1.005-1.025); UMIC TRIGGER UACC YES; Urine Blood Negative (Negative); Urine Ketones Negative (Negative); Urine Protein Negative (Neg-Trace)
[2023-05-20 11:20] LABS: Bacteria Urine None Seen (None Seen); RBC Urine 0-2 /HPF (0-2); UACC Culture Trigger YES; WBC Urine 21-50 /HPF (0-5)
== END 2023-05-20 09:04 | disposition home or self-care (01) ==
LOC: HO.LAB 09:03
PROVIDERS: PCP Internal Medicine; Visit Provider Internal Medicine
DX: E78.00 Pure hypercholesterolemia, unspecified (principal); I82.402 Acute embolism and thrombosis of unspecified deep veins of left lower extremity; T78.40XA Allergy, unspecified, initial encounter; R30.0 Dysuria; R41.0 Disorientation, unspecified; E55.9 Vitamin D deficiency, unspecified; R73.02 Impaired glucose tolerance (oral)
CPT/HCPCS: 36415; 80053; 80061; 81001; 82306; 83036; 83880; 84439; 84443; 85025; 87086

== ENCOUNTER 2023-06-06 14:32 | Outpatient (REF) | payer MEDICARE, SELFPAY ==
[2023-06-06 14:45] LABS: MANUAL DIFF FLAG NO
[2023-06-06 15:31] LABS: Basophils Absolute Auto 0.1 X10*3/uL (0.0-0.2); Basophils Percent Auto 1.4 % (0-2); Eosinophils Absolute Auto 0.5 X10*3/uL (0.0-0.4); Eosinophils Percent Auto 8.4 % (0-4); Hematocrit 36.9 % (37.0-47.0); Hemoglobin 11.7 g/dl (12.0-16.0); Imm Gran Abs Auto 0.01 X10*3/uL (0.00-0.03); Imm Gran Pct Auto 0.2 % (0.0-0.4); Lymphocytes Absolute Auto 1.5 X10*3/uL (1.2-4.9); Lymphocytes Percent Auto 23.9 % (20-40); Mean Corpuscular HGB Conc 31.7 g/dl (31.0-35.0); Mean Corpuscular Hemoglobin 30.2 pg (27.0-33.0); Mean Corpuscular Volume 95.3 fL (80.0-98.0); Mean Platelet Volume 9.5 fL (9.4-12.3); Monocytes Absolute Auto 0.6 X10*3/uL (0.1-1.2); Neutrophils Absolute Auto 3.7 x10*3/uL (2.0-8.3); Neutrophils Percent Auto 57.1 % (45-73); Platelet Count 423 X10*3/uL (160-400); Red Blood Count 3.87 X10*6/uL (4.20-5.50); Red Cell Distribution Width 14.3 % (11.0-16.0); White Blood Count 6.5 X10*3/uL (4.8-10.8)
[2023-06-06 15:52] LABS: Alanine Aminotransferase 12 U/L (0-31); Albumin Level 3.9 g/dL (3.5-5.0); Alkaline Phosphatase 68 U/L (39-117); Anion Gap 13 (12-20); Aspartate Amino Transferase 19 U/L (5-31); Bilirubin Total 0.3 mg/dL (0.0-1.0); Blood Urea Nitrogen 33 mg/dL (9-16); Calcium 9.1 mg/dL (8.4-10.2); Carbon Dioxide 30 mmol/L (22-29); Chloride 103 mmol/L (96-108); Estimated Glomerular Filt Rate 38; Glucose Random 115 mg/dL (60-115); Potassium 4.1 mmol/L (3.3-5.1); Sodium 142 mmol/L (135-145); Total Protein 7.6 g/dL (6.5-8.0)
[2023-06-06 16:27] LABS: Appearance Urine Clear; Color Urine Yellow; Glucose Urine UA Negative (Negative); Leukocyte Esterase Urine Trace (Negative); Nitrite Urine Negative (Negative); PH 5.5 (5.0-9.0); Specific Gravity - Urine <= 1.005 (1.005-1.025); UMIC TRIGGER UACC YES; Urine Blood Negative (Negative); Urine Ketones Negative (Negative); Urine Protein Negative (Neg-Trace)
[2023-06-06 16:32] LABS: Bacteria Urine None Seen (None Seen); Hyaline Casts Urine 0-2 /LPF (0-2); RBC Urine 0-2 /HPF (0-2); Squamous Epithelial Cell Urine 0-2 /HPF (0-2); WBC Urine 0-5 /HPF (0-5)
== END 2023-06-06 14:33 | disposition home or self-care (01) ==
LOC: HO.LAB 14:32
PROVIDERS: PCP Internal Medicine; Visit Provider Internal Medicine
DX: I82.402 Acute embolism and thrombosis of unspecified deep veins of left lower extremity (principal); T78.40XA Allergy, unspecified, initial encounter; R30.0 Dysuria; R41.0 Disorientation, unspecified
CPT/HCPCS: 36415; 80053; 81001; 85025

== ENCOUNTER 2023-06-10 14:28 | Outpatient (AMB) | payer MEDICARE, SELFPAY ==
[2023-06-10 14:29] VITALS: BP 144/66; PULSE 70; O2SAT 98; BMI 25.7
--- NOTE | 2023-06-10 14:29 | A.OFFPC_ITS ---
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 Allergies Penicillins [PENICILLINS] Allergy (Severe, Verified 06/10/23 14:34) THROAT SWELLS Iodinated Contrast Media Allergy (Intermediate, Verified 06/10/23 14:34) Rash penicillin V Allergy (Unknown, Verified 06/10/23 14:34) Throat Swells carvedilol Adverse Reaction (Intermediate, Verified 06/10/23 14:34) rash cyclosporine Adverse Reaction (Intermediate, Verified 06/10/23 14:34) hypertensive Tobacco use date assessed: 06/10/23 Fall risk assessment: No Falls in past year Last assessed Fall Risk: 06/10/23 HPI 3 month f/u HPI Details 82-year-old female with a history of CVA CAD left leg DVT hypertension, hypercholesterolemia and impaired glucose tolerance last seen in February 2023. Patient is up-to-date with colonoscopy, due for bone density February 2021 due for mammogram patient is here for follow-up. Patient follows up with Nephrology seen in 04/06/2023 essential hypertension stage III A chronic kidney disease on lisinopril 40 mg once a day metoprolol 50 mg once a day and on furosemide 20 mg once a day with 2 tablets in the morning and 1 tablet in the afternoon. Patient's last blood work was done in May 2023 showing some mild anemia at 11.7- recennt change in xarelto from [facility] hematology aspirin but will push for xarelto lower dose. PAtient just had US done Left leg 05/2023resideual thrombus non occlusive mid left femoral vein. Discussed about the blood work [facility] Medical History (Updated 05/19/23 @ 15:08 by Lucas Moore MD) Left leg swelling Rash CAD (coronary artery disease) Abnormal cardiac function test SOB (shortness of breath) on exertion Adult general medical exam Post-menopausal GERD (gastroesophageal reflux disease) Insomnia Hypertension Hypercholesterolemia Surgical History History of cardiac cath History of colonoscopy No pertinent past surgical history Family History Father Heart disease Prostate cancer Colon cancer CVD (cardiovascular disease) Diabetes Mother Ovarian cancer Gout Sister Ovarian cancer Social History Housing: House Alcohol intake: former Patient Tobacco Use Status: Former Tobacco user Quit Date: 1989 Smoked: 30 +/- e-Cigarette/Vaping Use: Never Used Second Hand Smoke Exposure: No Current occupational status: retired Cognitive needs: Yes Hearing needs: No Vision needs: Yes Questionnaire PHQ-9 Over the last 2 weeks, how often have you been bothered by any of the following problems? 1. Little interest or pleasure in doing things: not at all 2. Feeling down, depressed, or hopeless: not at all 3. Trouble falling or staying asleep, or sleeping too much: not at all 4. Feeling tired or having little energy: not at all 5. Poor appetite or overeating: not at all 6. Feeling bad about yourself - or that you are a failure or have let yourself or your family down: not at all 7. Trouble concentrating on things, such as reading the newspaper or watching television: not at all 8. Moving or speaking so slowly that other people could have noticed. Or the opposite - being so fidgety or restless that you have been moving around a lot more than usual: not at all 9. Thoughts that you would be better off or of hurting yourself in some way: not at all Total score: 0 Depression Screening Interpretation: Negative Depression Screening Done: Yes Source: Developed by Drs. Doug Boone, Rachelle Calvo, Eran Weller and colleagues, with an educational juliet from [employer]. Thrive Questionnaire Date Thrive assessed: 08/12/22 AUDIT C Alcohol Use Questionnaire (AUDIT-C) 1. How often do you have a drink containing alcohol?: Monthly or less 2. How many drinks containing alcohol do you have on a typical day when you are drinking?: 1 or 2 (Prudencioi) 3. How often do you have six or more drinks on one occasion?: Never Total Score: 1 ROSIE-7 AMB Questionnaire ROSIE-7 Date ROSIE - 7 assessed: 08/12/22 Source: Developed by Drs. Doug BooneRachelle Kurt Kroenke and colleagues, with an educational juliet from [employer]. Physical exam (Primary Care) Vital Signs: Last Vital Signs Pulse 70 06/10/23 14:29 BP 144/66 H 06/10/23 14:29 Pulse Ox 98 06/10/23 14:29 Oxygen Delivery Method Room Air 06/10/23 14:29 Care Plan Goal for BP management: Physical exam showing for were 5 on the left arm as well as left leg but 5/5 on the right leg and right arm strength BMI result Body Mass Index 25.7 Tobacco/Smoking Status: Tobacco use Status Tobacco use date assessed 06/10/23 06/10/23 14:35 Patient Tobacco Use Status Former Tobacco user 06/10/23 14:35 e-Cigarette/Vaping Use Never Used 06/10/23 14:35 PHQ-9: PHQ-9 Score PHQ-9: Total score 0 06/10/23 19:40 Depression Screening Interpretation: Negative Thrive Assessment: Date of Thrive Assessment Date Thrive assessed 08/12/22 06/10/23 14:35 Const General: alert; No acute distress Eyes Conjunctivae: conjunctivae normal Resp Auscultation: clear to auscultation bilaterally Cardio Rate: regular rate Rhythm: regular rhythm GI Inspection: Yes normal to inspection Extrem General: Yes normal to inspection and No edema Office Procedures Flu Questionnaire Does the patient have a severe egg allergy?: No Does the patient have severe life threatening allergies?: No Does the patient have a fever or illness today?: No Has the patient ever had Guillain-Townsend Syndrome?: No Has the patient ever had any past reaction to a flu shot?: No Immunizations flu vacc [id number] 6mos up(PF) 60 mcg(15 mcgx4)/0.5 mL IM syringe Performing Provider: Lucas Moore MD [facility] Administered by: AZRA Marti on 06/10/23 15:04 Dose Route Admin Location Dispensed Lot Number Expiration Date NDC Marriage And Family Therapist 0.5 mL IM Right Deltoid 0.5 mL [id number] 01/08/24 71976-921-87 [employer] VIS Given Date VIS Provided VIS Publication Date 06/10/23 Single Vaccine 21 Eligibility Eligibility Date Funding Source Not VFC Eligible 06/10/23 Private Assessment and Plan Assessment & Plan (1) Intracranial hemorrhage: Comment: Aprilcute right basal ganglia/external capsule hematoma, oval shaped and measures 2.3 cm in diameter without midline shift. L sided weakness Code(s): I62.9 - Nontraumatic intracranial hemorrhage, unspecified Plan: Continue to monitor, stable (2) CAD (coronary artery disease): Comment: Cardiac catheterization October 2021 nonobstructive Code(s): I25.10 - Atherosclerotic heart disease of [place] coronary artery without angina pectoris Plan: Control the cholesterol, weight, blood pressure patient is on anticoagulation with Xarelto 20 mg once a day (3) Hypertension: Code(s): I10 - Essential (primary) hypertension Qualifiers: Hypertension type: unspecified Qualified Code(s): I10 - Essential (primary) hypertension Plan: Continue with blood pressure medication. Decrease salt intake and exercise patient is on metoprolol 50 mg twice a day lisinopril 40 mg once a day (4) Hypercholesterolemia: Code(s): E78.00 - Pure hypercholesterolemia, unspecified Plan: Avoid fried foods, chicken skin, eggs, butter margarine, pastries and meat. Be it pork or beef they have a lot of cholesterol. Concern about elevation of LDL patient has been prescribed pravastatin. Patient has not stop the medication and discussed about the results of the blood work. Declined any changes in the dose and advised to monitor the diet and retest blood work (5) Impaired glucose tolerance: Code(s): R73.02 - Impaired glucose tolerance (oral) Plan: Decrease the amount of carbohydrate intake, pasta, bread, rice and potatoes are all sugar and that is aside from all the sweet stuff, remember that fruits are good but they are Sweet also. Noted hemoglobin A1c rising (6) GERD (gastroesophageal reflux disease): Code(s): K21.9 - Gastro-esophageal reflux disease without esophagitis Plan: Avoid the foods that causes that usually spicy foods, tomato products, juices, coffee, soda and foods that your sensitive to. After eating do not lie down, allow 3-4 hours before in lie down. And keep the head of bed above 30 degrees to avoid the acid from going up. (7) Anemia: Code(s): D64.9 - Anemia, unspecified Plan: Stable continue to monitor (8) Left leg DVT: Comment: 11/19/2022 Code(s): I82.402 - Acute embolism and thrombosis of unspecified deep veins of left lower extremity Plan: Patient on anticoagulation. Patient follows up with hematology oncology temporarily discontinued Xarelto placed on aspirin and will be back with the lower dose of Xarelto ultrasound was done with partial thrombus mid femoral left Orders: Orders Comprehensive Met. Panel 3 Months E78.00 - Pure hypercholesterolemia, unspecified Influenza [id number] Immunization Today Z23 - Encounter for immunization Lipid Panel 3 Months E78.00 - Pure hypercholesterolemia, unspecified Hemoglobin A1c 3 Months E78.00 - Pure hypercholesterolemia, unspecified Coding Level of Care Code Est Pt Level 4 (63152) Diagnoses Intracranial hemorrhage I62.9 CAD (coronary artery disease) I25.10 Hypertension, unspecified type I10 Hypertension type: unspecified Hypercholesterolemia E78.00 Impaired glucose tolerance R73.02 GERD (gastroesophageal reflux disease) K21.9 Anemia D64.9 Left leg DVT I82.402
== END 2023-06-10 15:08 | disposition home or self-care (01) ==
PROVIDERS: PCP Internal Medicine; Visit Provider Internal Medicine
DX: I62.9 Nontraumatic intracranial hemorrhage, unspecified (principal); I82.402 Acute embolism and thrombosis of unspecified deep veins of left lower extremity; I25.10 Atherosclerotic heart disease of native coronary artery without angina pectoris; Z23 Encounter for immunization; I10 Essential (primary) hypertension; E78.00 Pure hypercholesterolemia, unspecified; R73.02 Impaired glucose tolerance (oral); K21.9 Gastro-esophageal reflux disease without esophagitis; D64.9 Anemia, unspecified
CPT/HCPCS: 90471; 90686; 99214

== ENCOUNTER 2023-09-19 14:05 | Outpatient (AMB) | payer MEDICARE, SELFPAY ==
[2023-09-19 14:06] VITALS: BP 130/70; PULSE 77; O2SAT 98; BMI 26.1
--- NOTE | 2023-09-19 14:06 | A.OFFPC_ITS ---
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 Allergies Penicillins [PENICILLINS] Allergy (Severe, Verified 09/19/23 14:13) THROAT SWELLS Iodinated Contrast Media Allergy (Intermediate, Verified 09/19/23 14:13) Rash penicillin V Allergy (Unknown, Verified 09/19/23 14:13) Throat Swells carvedilol Adverse Reaction (Intermediate, Verified 09/19/23 14:13) rash cyclosporine Adverse Reaction (Intermediate, Verified 09/19/23 14:13) hypertensive Tobacco use date assessed: 09/19/23 Fall risk assessment: No Falls in past year Last assessed Fall Risk: 09/19/23 Dental Screening Dental Screen Date: 09/19/23 HPI 3mth f/u HPI Details 82-year-old female with a history of CVA intracranial hemorrhage CAD hypertension hypercholesterolemia impaired glucose tolerance GERD and history of left DVT coming in for follow-up last seen in June 2023. Patient's bone density was last done in February 2021 having osteopenia mammogram December 2021. Review of the notes has seen Allergy and immunology 06/24/2023 advised to discontinue cyclosporin continue CeraVe decrease hydroxyzine blood work requested patient had an ultrasound done of the leg in May 2023 showing d ecreased thrombus with some residual nonocclusive thrombus post thrombotic change in the mid left femoral vein small cyst in the popliteal fossa [place] cyst. Patient was advised to hold the Xarelto 1 week before the follow-up with the Hematology Oncology otherwise patient has been continuing to have the physical therapy and has been able to walk without any cane for short distance only but has been actively doing physical therapy. 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 Patient requests CA 125 in the test as she has family history of ovarian cancer [facility] Medical History (Updated 09/19/23 @ 14:32 by Lucas Moore MD) Left leg swelling Rash CAD (coronary artery disease) Abnormal cardiac function test SOB (shortness of breath) on exertion Adult general medical exam Post-menopausal GERD (gastroesophageal reflux disease) Insomnia Hypertension Hypercholesterolemia Surgical History History of cardiac cath History of colonoscopy No pertinent past surgical history Family History Father Heart disease Prostate cancer Colon cancer CVD (cardiovascular disease) Diabetes Mother Ovarian cancer Gout Sister Ovarian cancer Social History Housing: House Alcohol intake: former Patient Tobacco Use Status: Former Tobacco user Quit Date: 1989 Smoked: 30 +/- e-Cigarette/Vaping Use: Never Used Second Hand Smoke Exposure: No Current occupational status: retired Cognitive needs: Yes Hearing needs: No Vision needs: Yes Questionnaire Thrive Questionnaire Date Thrive assessed: 09/19/23 I am a: Patient What is your living situation today?: I have a steady place to live Within the past 12 months, did the food you bought not last and you didn't have the money to get more?: Never true Within the past 12 months, did you worry whether your food would run out before you got money to buy more?: Never true Do you have trouble paying for medicines?: No Do you have trouble getting transportation to medical appointments?: No Do you have trouble paying your heating and electricity bill?: No Do you have trouble taking care of your child, family member or friend?: No Do you have trouble with day-to-day activities such as bathing, preparing meals, shopping, managing finances, etc.?: No Are you currently unemployed and looking for a job?: No Are you interested in more education?: No Please select the resources that you would like help with: None THRIVE Score: 0 AUDIT C Alcohol Use Questionnaire (AUDIT-C) 1. How often do you have a drink containing alcohol?: Monthly or less 2. How many drinks containing alcohol do you have on a typical day when you are drinking?: 1 or 2 (Prudencioi) 3. How often do you have six or more drinks on one occasion?: Never Total Score: 1 ROSIE-7 AMB Questionnaire ROSIE-7 Date ROSIE - 7 assessed: 09/19/23 Source: Developed by Drs. Doug Boone, Rachelle Calvo, Eran Weller and colleagues, with an educational juliet from [employer]. Physical exam (Primary Care) Vital Signs: Last Vital Signs Pulse 77 09/19/23 14:06 BP 130/70 09/19/23 14:06 Pulse Ox 98 09/19/23 14:06 Oxygen Delivery Method Room Air 09/19/23 14:06 BMI result Body Mass Index 26.1 Manual muscle testing 5/5 on the right arm and leg while 4/5 on the left arm and leg Tobacco/Smoking Status: Tobacco use Status Tobacco use date assessed 09/19/23 09/19/23 14:07 Patient Tobacco Use Status Former Tobacco user 09/19/23 14:07 e-Cigarette/Vaping Use Never Used 09/19/23 14:07 Thrive Assessment: Date of Thrive Assessment Date Thrive assessed 09/19/23 09/19/23 14:07 Const General: alert; No acute distress Eyes Conjunctivae: conjunctivae normal Resp Auscultation: clear to auscultation bilaterally Cardio Rate: regular rate Rhythm: regular rhythm GI Inspection: Yes normal to inspection Extrem General: Yes normal to inspection and No edema Assessment and Plan Assessment & Plan (1) Intracranial hemorrhage: Comment: Aprilcute right basal ganglia/external capsule hematoma, oval shaped and measures 2.3 cm in diameter without midline shift. L sided weakness Code(s): I62.9 - Nontraumatic intracranial hemorrhage, unspecified Plan: Continue to control blood pressure control cholesterol. On Xarelto presently but advised to hold off prior to seeing Hematology-Oncology (2) CAD (coronary artery disease): Comment: Cardiac catheterization October 2021 nonobstructive Code(s): I25.10 - Atherosclerotic heart disease of [place] coronary artery without angina pectoris Plan: Control the cholesterol, weight, blood pressure on anticoagulation (3) Hypertension: Code(s): I10 - Essential (primary) hypertension Qualifiers: Hypertension type: unspecified Qualified Code(s): I10 - Essential (primary) hypertension Plan: Continue with blood pressure medication. Decrease salt intake and exercise presently taking lisinopril 40 mg once a day metoprolol tartrate 50 mg twice a day (4) Hypercholesterolemia: Code(s): E78.00 - Pure hypercholesterolemia, unspecified Plan: Avoid fried foods, chicken skin, eggs, butter margarine, pastries and meat. Be it pork or beef they have a lot of cholesterol LDL goal of less than 70 and triglyceride of less than 150. On pravastatin 10 mg once a day patient is reminded about the blood work (5) GERD (gastroesophageal reflux disease): Code(s): K21.9 - Gastro-esophageal reflux disease without esophagitis Plan: Avoid the foods that causes that usually spicy foods, tomato products, juices, coffee, soda and foods that your sensitive to. After eating do not lie down, allow 3-4 hours before in lie down. And keep the head of bed above 30 degrees to avoid the acid from going up. (6) Impaired glucose tolerance: Code(s): R73.02 - Impaired glucose tolerance (oral) Plan: Decrease the amount of carbohydrate intake, pasta, bread, rice and potatoes are all sugar and that is aside from all the sweet stuff, remember that fruits are good but they are Sweet also. (7) Anemia: Code(s): D64.9 - Anemia, unspecified Plan: Continue to monitor (8) Left leg DVT: Comment: 11/19/2022 ultrasound left leg June 2023 residual thrombus Code(s): I82.402 - Acute embolism and thrombosis of unspecified deep veins of left lower extremity Plan: Ultrasound done showing residual thrombus on anticoagulation (9) Family history of ovarian cancer: Code(s): Z80.41 - Family history of malignant neoplasm of ovary Orders: Orders Complete Blood Count Auto Diff Today D64.9 - Anemia, unspecified Ferritin Today D64.9 - Anemia, unspecified Thyroid Stimulating Hormone Today D64.9 - Anemia, unspecified CA-125 Today Z80.41 - Family history of malignant neoplasm of ovary IRON PROFILE Today D64.9 - Anemia, unspecified Reticulocyte Count Today D64.9 - Anemia, unspecified Vitamin B12 and Folate Today D64.9 - Anemia, unspecified Coding Level of Care Code Est Pt Level 4 (25724) Diagnoses Intracranial hemorrhage I62.9 CAD (coronary artery disease) I25.10 Hypertension, unspecified type I10 Hypertension type: unspecified Hypercholesterolemia E78.00 GERD (gastroesophageal reflux disease) K21.9 Impaired glucose tolerance R73.02 Anemia D64.9 Left leg DVT I82.402 Family history of ovarian cancer Z80.41
== END 2023-09-19 14:40 | disposition home or self-care (01) ==
PROVIDERS: PCP Internal Medicine; Visit Provider Internal Medicine
DX: I62.9 Nontraumatic intracranial hemorrhage, unspecified (principal); I82.402 Acute embolism and thrombosis of unspecified deep veins of left lower extremity; I25.10 Atherosclerotic heart disease of native coronary artery without angina pectoris; I10 Essential (primary) hypertension; E78.00 Pure hypercholesterolemia, unspecified; K21.9 Gastro-esophageal reflux disease without esophagitis; R73.02 Impaired glucose tolerance (oral); D64.9 Anemia, unspecified; Z80.41 Family history of malignant neoplasm of ovary
CPT/HCPCS: 99214

== ENCOUNTER 2023-10-11 08:35 | Outpatient (REF) | payer MEDICARE, SELFPAY ==
[2023-10-11 12:51] LABS: MANUAL DIFF FLAG NO
[2023-10-11 13:05] LABS: Basophils Absolute Auto 0.1 X10*3/uL (0.0-0.2); Basophils Percent Auto 1.4 % (0-2); Eosinophils Absolute Auto 0.5 X10*3/uL (0.0-0.4); Eosinophils Percent Auto 8.5 % (0-4); Hematocrit 34.2 % (37.0-47.0); Hemoglobin 11.2 g/dl (12.0-16.0); Imm Gran Abs Auto 0.02 X10*3/uL (0.00-0.03); Imm Gran Pct Auto 0.3 % (0.0-0.4); Immature Retic Fraction 12.7 % (3.0-15.9); Lymphocytes Absolute Auto 1.6 X10*3/uL (1.2-4.9); Lymphocytes Percent Auto 27.1 % (20-40); Mean Corpuscular HGB Conc 32.7 g/dl (31.0-35.0); Mean Corpuscular Hemoglobin 31.2 pg (27.0-33.0); Mean Corpuscular Volume 95.3 fL (80.0-98.0); Mean Platelet Volume 9.8 fL (9.4-12.3); Monocytes Absolute Auto 0.6 X10*3/uL (0.1-1.2); Monocytes Percent Auto 10.1 % (2-11); Neutrophils Absolute Auto 3.1 x10*3/uL (2.0-8.3); Neutrophils Percent Auto 52.6 % (45-73); Platelet Count 395 X10*3/uL (160-400); Red Blood Count 3.59 X10*6/uL (4.20-5.50); Retic HGB Equivalent 34.9 pg (30.0-35.0); Reticulocyte Percent 1.5 % (0.5-1.8); Reticulocytes Absolute 0.055 X10*6/uL (0.026-0.095); White Blood Count 5.9 X10*3/uL (4.8-10.8)
[2023-10-11 13:40] LABS: Iron 59 mcg/dL (30-160); Percent Iron Saturation 29 % (15-50); Total Iron Binding Capacity 207 mcg/dL (228-428); Unsaturated Iron Binding 148 ug/dL
[2023-10-11 13:44] LABS: Ferritin 201 ng/mL (10-250); Thyroid Stimulating Hormone 1.93 uIU/mL (0.32-4.0)
[2023-10-11 13:52] LABS: Folate 6.9 ng/mL (> or = 4.0); Vitamin B12 412 pg/mL (200-900)
[2023-10-14 08:08] LABS: CA-125 26 U/mL (<35)
== END 2023-10-11 08:36 | disposition home or self-care (01) ==
LOC: HO.WFDLDS 08:35
PROVIDERS: Visit Provider Internal Medicine
DX: D64.9 Anemia, unspecified (principal); Z80.41 Family history of malignant neoplasm of ovary
CPT/HCPCS: 36415; 82607; 82728; 82746; 83540; 84443; 85025; 85045; 86304

== ENCOUNTER 2024-01-31 13:09 | Outpatient (AMB) | payer MEDICARE, SELFPAY ==
[2024-01-31 13:11] VITALS: BP 146/58; PULSE 73; O2SAT 98; BMI 24.8
--- NOTE | 2024-01-31 13:11 | A.OFFPC_ITS ---
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 Required: No Allergies Penicillins [PENICILLINS] Allergy (Severe, Verified 01/31/24 13:15) THROAT SWELLS Iodinated Contrast Media Allergy (Intermediate, Verified 01/31/24 13:15) Rash penicillin V Allergy (Unknown, Verified 01/31/24 13:15) Throat Swells carvedilol Adverse Reaction (Intermediate, Verified 01/31/24 13:15) rash cyclosporine Adverse Reaction (Intermediate, Verified 01/31/24 13:15) hypertensive Medication List - Last Reconciled 01/31/24 by Bonnie Cárdenas PA-C [left leg brace, from her knee to her ankle As directed] baclofen 10 mg PO TID 90 days furosemide 40 mg in am and 20 mg at 3 pm orally; hydroxyzine HCl 1/2 tab AM, 1/2 tab 5 pm and 2 tabs bedtime [LEFT AFO LEFT HEMIPARESIS] lisinopril 40 mg PO DAILY metoprolol tartrate 50 mg PO BID 90 days mirtazapine 15 mg PO BEDTIME nystatin 1 appl topical DAILY 15 days [Power wheelchair As directed] pravastatin 10 mg PO BEDTIME rivaroxaban (Xarelto) 20 mg PO DAILY 90 days trazodone 50 mg PO BEDTIME vitamins A,C,C-nlij-hhwvkw 4,296 mcg-226 mg-90 mg (PreserVision AREDS) 1 cap PO DAILY Tobacco use date assessed: 09/19/23 Fall risk assessment: No Falls in past year Last assessed Fall Risk: 01/31/24 Dental Screening Dental Screen Date: 09/19/23 HPI 3mth f/u HPI Details 83-year-old female with a history of CVA intracranial hemorrhage, CAD, hypertension, hypercholesterolemia, impaired glucose tolerance, GERD and history of left DVT coming in for follow-up last seen by Dr. Moore September 2023. In review of the notes patient has been following with [facility] rehab outpatient and has services from [facility]. Patient was seen by Allergy continue on Cerave lotion and follow up in 6 months. She was also seen by Nephrology 09/27/2023 was considered to be stable and will follow up in 6 months. Today she tells us she has been following with Hematology Oncology as well and follows with them every 6 months considered stable. She is concerned her physical therapy at [facility] we will be ending soon and would like an additional referral for physical therapy at [place]. She has been doing well on current med regimen and has no acute concerns at this time. [facility] Medical History (Updated 01/31/24 @ 13:27 by Bonnie Cárdenas PA-C) Left leg swelling Rash CAD (coronary artery disease) Abnormal cardiac function test SOB (shortness of breath) on exertion Adult general medical exam Post-menopausal GERD (gastroesophageal reflux disease) Insomnia Hypertension Hypercholesterolemia Surgical History History of cardiac cath History of colonoscopy No pertinent past surgical history Family History Father Heart disease Prostate cancer Colon cancer CVD (cardiovascular disease) Diabetes Mother Ovarian cancer Gout Sister Ovarian cancer Social History Housing: House Alcohol intake: former Patient Tobacco Use Status: Former Tobacco user Years Smoked: 30 +/- e-Cigarette/Vaping Use: Never Used Second Hand Smoke Exposure: No Current occupational status: retired Cognitive needs: Yes Hearing needs: No Vision needs: Yes Questionnaire Thrive Questionnaire Date Thrive assessed: 09/19/23 AUDIT C Alcohol Use Questionnaire (AUDIT-C) 1. How often do you have a drink containing alcohol?: Monthly or less 2. How many drinks containing alcohol do you have on a typical day when you are drinking?: 1 or 2 (Martini) 3. How often do you have six or more drinks on one occasion?: Never Total Score: 1 ROSIE-7 AMB Questionnaire ROSIE-7 Date ROSIE - 7 assessed: 09/19/23 Source: Developed by Drs. Doug Boone, Rachelle Calvo, Eran Weller and colleagues, with an educational juliet from [employer]. Review of Systems Const Denies body aches, Denies chills, Denies fever(s), Denies headache(s) and Denies poor appetite Eyes Reports no additional complaints ENT Denies dysphagia, Denies dizziness, Denies headache(s) and Denies odynophagia Card Denies chest pain, Denies syncope, Denies edema, Denies irregular heart rhythm, Denies lightheadedness and Denies dyspnea Resp Denies cough and Denies dyspnea GI Denies abdominal pain, Denies constipation, Denies dysphagia, Denies diarrhea, Denies nausea, Denies odynophagia and Denies vomiting Reports no additional complaints Musc Reports no additional complaints and Denies abnormal gait Skin/Breast Reports system reviewed and no additional complaints, except as documented Neuro Denies abnormal gait, Denies dizziness, Denies syncope and Denies headache(s) Psych Reports no additional complaints Physical exam (Primary Care) Vital Signs: Last Vital Signs Pulse 73 01/31/24 13:11 BP 140/78 H 01/31/24 13:30 Pulse Ox 98 01/31/24 13:11 Oxygen Delivery Method Room Air 01/31/24 13:11 BMI result Body Mass Index 24.8 Tobacco/Smoking Status: Tobacco use Status Tobacco use date assessed 09/19/23 01/31/24 13:12 Patient Tobacco Use Status Former Tobacco user 01/31/24 13:12 e-Cigarette/Vaping Use Never Used 01/31/24 13:12 Thrive Assessment: Date of Thrive Assessment Date Thrive assessed 09/19/23 01/31/24 13:12 Const General: cooperative, healthy appearing, comfortable and no acute distress Orientation/consciousness: patient oriented x3 Limitations: wheelchair HENKS Head: Yes normocephalic Ears: hearing grossly normal bilaterally General nose exam: Normal external nose present Eyes General: appearance normal, both eyes and all related structures Conjunctivae: conjunctivae normal Neck Neck: Yes full ROM and Yes no lymphadenopathy Resp Effort & Inspection: normal respiratory effort Auscultation: clear to auscultation bilaterally, no crackles, no rales, no rhonchi and no wheezes Cardio Rate: regular rate Rhythm: regular rhythm Skin General skin exam: no rashes or lesions noted Neuro General: patient oriented x3 Extrem General: Yes normal to inspection, Yes full ROM and No edema Psych Affect: normal affect Attitude: cooperative Insight: Good insight present (Psych) Judgement: Good judgement present (Psych) Assessment and Plan Assessment & Plan (1) Intracranial hemorrhage: Comment: April 2022 acute right basal ganglia/external capsule hematoma, oval shaped and measures 2.3 cm in diameter without midline shift. L sided weakness Code(s): I62.9 - Nontraumatic intracranial hemorrhage, unspecified Plan: Continue to control blood pressure and cholesterol. On Xarelto presently without complication. (2) CAD (coronary artery disease): Comment: Cardiac catheterization October 2021 nonobstructive Code(s): I25.10 - Atherosclerotic heart disease of [place] coronary artery without angina pectoris Plan: Control the cholesterol, weight, and blood pressure on anticoagulation. (3) Hypertension: Code(s): I10 - Essential (primary) hypertension Qualifiers: Hypertension type: unspecified Qualified Code(s): I10 - Essential (primary) hypertension Plan: Blood pressure mildly elevated in the office today. She takes her blood pressures at home daily with her visiting nurse and blood pressures have been within normal range less than 130/90. She will bring blood pressure log to next appointment. Continue with lisinopril 40 mg once a day metoprolol tartrate 50 mg twice a day. Continue to take blood pressures daily and if elevated at home please reach out. Avoid salt intake and encourage healthy diet and regular exercise. (4) Hypercholesterolemia: Code(s): E78.00 - Pure hypercholesterolemia, unspecified Plan: LDL goal of less than 70 and triglyceride of less than 150. On pravastatin 10 mg once a day. Avoid foods that are high in cholesterol such as red meat, fried foods, eggs and baked goods. Patient is reminded about the blood work. (5) Impaired glucose tolerance: Code(s): R73.02 - Impaired glucose tolerance (oral) Plan: Decrease the amount of carbohydrates such as pasta, bread, rice, and potatoes and limit the amount of sweets. Although fruits are generally healthy they should be eaten in moderation as they are still high in sugar. Hemoglobin A1c goal of < 7%. Patient is reminded about blood work. (6) Left leg DVT: Comment: 11/19/2022 ultrasound left leg June 2023 residual thrombus Code(s): I82.402 - Acute embolism and thrombosis of unspecified deep veins of left lower extremity Plan: Ultrasound done showing residual thrombus on anticoagulation. (7) Left-sided weakness: Code(s): R53.1 - Weakness Plan: Patient has been doing well with physical therapy and has regained strength and mobility with her left upper extremity and left lower extremity. New referral for physical therapy was sent. Ambulates with walker at home. Plan This note was constructed using voice recognition software. While every effort has been made to ensure accuracy and well service pump equipment operator, still areas may have been included sometimes these areas may affect the content or meeting of the given symptoms. Total time spent caring for the patient today was 30 minutes. This includes time spent before the visit reviewing the chart, time spent during the visit, and time spent after the visit and documentation. Orders: Orders Comprehensive Met. Panel Today E78.00 - Pure hypercholesterolemia, unspecified Lipid Panel Today E78.00 - Pure hypercholesterolemia, unspecified PT Evaluation and Treatment Today R53.1 - Weakness Hemoglobin A1c Today E78.00 - Pure hypercholesterolemia, unspecified Medications: Refilled trazodone 50 mg PO BEDTIME 90 tabs 1RF G47.00 - Insomnia, unspecified Coding Level of Care Code Est Pt Level 4 (04380) Diagnoses Intracranial hemorrhage I62.9 CAD (coronary artery disease) I25.10 Hypertension, unspecified type I10 Hypertension type: unspecified Hypercholesterolemia E78.00 Impaired glucose tolerance R73.02 Left leg DVT I82.402 Left-sided weakness R53.1
[2024-01-31 13:30] VITALS: BP 140/78
== END 2024-01-31 13:36 | disposition home or self-care (01) ==
PROVIDERS: PCP Internal Medicine
DX: I10 Essential (primary) hypertension (principal); I62.9 Nontraumatic intracranial hemorrhage, unspecified; I82.402 Acute embolism and thrombosis of unspecified deep veins of left lower extremity; I25.10 Atherosclerotic heart disease of native coronary artery without angina pectoris; E78.00 Pure hypercholesterolemia, unspecified; R73.02 Impaired glucose tolerance (oral); R53.1 Weakness
CPT/HCPCS: 99214

== ENCOUNTER 2024-02-02 09:08 | Outpatient (REF) | payer MEDICARE, SELFPAY ==
[2024-02-02 11:46] LABS: Estimated Average Glucose 123 mg/dL; Hemoglobin A1c % 5.9 % (<6.0)
[2024-02-02 11:48] LABS: Appearance Urine Clear; Color Urine Yellow; Glucose Urine UA Negative (Negative); Leukocyte Esterase Urine Small (1+) (Negative); Nitrite Urine Negative (Negative); PH 5.5 (5.0-9.0); UMIC TRIGGER UACC YES; Urine Blood Negative (Negative); Urine Ketones Negative (Negative); Urine Protein Negative (Neg-Trace)
[2024-02-02 11:59] LABS: Bacteria Urine None Seen (None Seen); Hyaline Casts Urine 0-2 /LPF (0-2); RBC Urine 0-2 /HPF (0-2); Squamous Epithelial Cell Urine 0-2 /HPF (0-2); UACC Culture Trigger YES
[2024-02-02 12:13] LABS: Alanine Aminotransferase 10 U/L (0-31); Albumin Level 4.1 g/dL (3.5-5.0); Alkaline Phosphatase 68 U/L (39-117); Anion Gap 15 (12-20); Aspartate Amino Transferase 19 U/L (5-31); Bilirubin Total 0.5 mg/dL (0.0-1.0); Blood Urea Nitrogen 27 mg/dL (9-16); Calcium 9.2 mg/dL (8.4-10.2); Carbon Dioxide 25 mmol/L (22-29); Chloride 105 mmol/L (96-108); Cholesterol 225 mg/dL (<200); Estimated Glomerular Filt Rate 45; Glucose Random 99 mg/dL (60-115); HDL Cholesterol 46 mg/dL (>40); LDL Cholesterol Calculated 135 mg/dL (<100); Potassium 3.8 mmol/L (3.3-5.1); Sodium 141 mmol/L (135-145); Total Protein 7.4 g/dL (6.5-8.0); Triglycerides 221 mg/dL (<150)
== END 2024-02-02 09:09 | disposition home or self-care (01) ==
LOC: HO.WFDLDS 09:08
PROVIDERS: Visit Provider Internal Medicine
DX: E78.00 Pure hypercholesterolemia, unspecified (principal); Z13.1 Encounter for screening for diabetes mellitus; R30.0 Dysuria; R41.0 Disorientation, unspecified
CPT/HCPCS: 36415; 80053; 80061; 81001; 83036; 87086

== ENCOUNTER 2024-04-13 09:42 | Outpatient (REF) | payer MEDICARE, SELFPAY ==
[2024-04-13 11:05] LABS: MANUAL DIFF FLAG NO
[2024-04-13 11:17] LABS: Basophils Absolute Auto 0.1 X10*3/uL (0.0-0.2); Basophils Percent Auto 1.1 % (0-2); Eosinophils Absolute Auto 0.5 X10*3/uL (0.0-0.4); Eosinophils Percent Auto 9.3 % (0-4); Hematocrit 36.7 % (37.0-47.0); Hemoglobin 11.9 g/dl (12.0-16.0); Imm Gran Abs Auto 0.01 X10*3/uL (0.00-0.03); Imm Gran Pct Auto 0.2 % (0.0-0.4); Lymphocytes Absolute Auto 1.2 X10*3/uL (1.2-4.9); Lymphocytes Percent Auto 21.4 % (20-40); Mean Corpuscular HGB Conc 32.4 g/dl (31.0-35.0); Mean Corpuscular Hemoglobin 30.8 pg (27.0-33.0); Mean Corpuscular Volume 95.1 fL (80.0-98.0); Mean Platelet Volume 10.5 fL (9.4-12.3); Monocytes Absolute Auto 0.7 X10*3/uL (0.1-1.2); Monocytes Percent Auto 11.9 % (2-11); Neutrophils Absolute Auto 3.1 x10*3/uL (2.0-8.3); Neutrophils Percent Auto 56.1 % (45-73); Platelet Count 330 X10*3/uL (160-400); Red Blood Count 3.86 X10*6/uL (4.20-5.50); Red Cell Distribution Width 14.5 % (11.0-16.0); White Blood Count 5.5 X10*3/uL (4.8-10.8)
[2024-04-13 11:51] LABS: Parathyroid Hormone Intact 54.6 pg/mL (8.7-77.1)
[2024-04-13 12:19] LABS: Anion Gap 17 (12-20); Blood Urea Nitrogen 29 mg/dL (9-16); Calcium 9.3 mg/dL (8.4-10.2); Carbon Dioxide 23 mmol/L (22-29); Chloride 106 mmol/L (96-108); Estimated Glomerular Filt Rate 48; Potassium 4.1 mmol/L (3.3-5.1); Sodium 142 mmol/L (135-145)
[2024-04-13 12:37] LABS: Creatinine Urine 73.32 mg/dL; Total Protein Urine Random < 7 mg/dL (<12)
== END 2024-04-13 09:43 | disposition home or self-care (01) ==
LOC: HO.WFDLDS 09:42
PROVIDERS: Referring Provider Internal Medicine; Visit Provider Internal Medicine Nephrology
DX: I12.9 Hypertensive chronic kidney disease with stage 1 through stage 4 chronic kidney disease, or unspecified chronic kidney disease (principal); N18.31 Chronic kidney disease, stage 3a; R60.0 Localized edema; D63.1 Anemia in chronic kidney disease
CPT/HCPCS: 36415; 80051; 82310; 82565; 82570; 83970; 84156; 84520; 85025

== ENCOUNTER 2024-04-24 13:50 | Outpatient (REF) | payer MEDICARE, SELFPAY ==
[2024-04-24 13:57] LABS: Appearance Urine Turbid; Color Urine Yellow; Glucose Urine UA Negative (Negative); Leukocyte Esterase Urine Large (3+) (Negative); Nitrite Urine Positive (Negative); Specific Gravity - Urine 1.015 (1.005-1.025); UMIC TRIGGER UACC YES; Urine Blood Moderate (2+) (Negative); Urine Ketones Negative (Negative); Urine Protein 100 (2+) mg/dL (Neg-Trace)
[2024-04-24 14:01] LABS: Bacteria Urine 4+ (None Seen); Hyaline Casts Urine 0-2 /LPF (0-2); UACC Culture Trigger YES; WBC Urine >50 /HPF (0-5)
== END 2024-04-24 13:51 | disposition home or self-care (01) ==
LOC: HO.LNP 13:50
PROVIDERS: Visit Provider Internal Medicine
DX: R30.0 Dysuria (principal)
CPT/HCPCS: 81001; 87086; 87088; 87147; 87186

== ENCOUNTER 2024-05-04 12:56 | Outpatient (AMB) | payer MEDICARE, SELFPAY ==
[2024-05-04 12:59] VITALS: BP 122/60; PULSE 67; O2SAT 95; BMI 24.1
--- NOTE | 2024-05-04 12:59 | A.OFFPC_ITS ---
Vital Signs 05/04/24 12:59 Height 5 ft 6 in Weight 149 lb 7.574 oz BMI 24.1 BP 122/60 Blood Pressure Location Lt brachial Position Sitting Pulse 67 Pulse Source Pulse Oximeter Pulse Oximetry (%) 95 Oxygen Delivery Method Room Air Intake Visit Reasons: F/U HLD/IGT Allergies Penicillins [PENICILLINS] Allergy (Severe, Verified 01/31/24 13:15) THROAT SWELLS Iodinated Contrast Media Allergy (Intermediate, Verified 01/31/24 13:15) Rash penicillin V Allergy (Unknown, Verified 01/31/24 13:15) Throat Swells carvedilol Adverse Reaction (Intermediate, Verified 01/31/24 13:15) rash cyclosporine Adverse Reaction (Intermediate, Verified 01/31/24 13:15) hypertensive Medication List - Last Reconciled 05/04/24 by Bonnie Cárdenas PA-C [left leg brace, from her knee to her ankle As directed] baclofen 10 mg PO TID 90 days [Custom wheelchair As directed] furosemide 40 mg in am and 20 mg at 3 pm orally; hydroxyzine HCl 1/2 tab AM, 1/2 tab 5 pm and 2 tabs bedtime [LEFT AFO LEFT HEMIPARESIS] lisinopril 40 mg PO DAILY metoprolol tartrate 50 mg PO BID 90 days mirtazapine 15 mg PO BEDTIME [Power wheelchair As directed] pravastatin 10 mg PO BEDTIME rivaroxaban (Xarelto) 20 mg PO DAILY 90 days trazodone 50 mg PO BEDTIME vitamins A,C,J-xari-orqhfc 4,296 mcg-226 mg-90 mg (PreserVision AREDS) 1 cap PO DAILY Tobacco use date assessed: 09/19/23 Dental Screening Dental Screen Date: 09/19/23 HPI F/U HLD/IGT HPI Details 83-year-old female with a history of CVA intracranial hemorrhage, CAD, hypertension, hypercholesterolemia, impaired glucose tolerance, GERD and history of left DVT coming in for follow-up last seen January 2024 coming in for follow up. Patient states she was having burning with urination found to have a UTI and given antibiotics by Dr. Moore. Since starting the antibiotics her symptoms have been improving and is no longer having pain with urination. She has been ambulating with a walker and denies any chest pain or shortness of breath with walking. She continues to work with physical therapy and is no longer working with occupational therapy due to insurance. [facility] Medical History (Updated 04/24/24 @ 12:23 by Lucas Moore MD) Left leg swelling Rash CAD (coronary artery disease) Abnormal cardiac function test SOB (shortness of breath) on exertion Adult general medical exam Post-menopausal GERD (gastroesophageal reflux disease) Insomnia Hypertension Hypercholesterolemia Surgical History History of cardiac cath History of colonoscopy No pertinent past surgical history Family History Father Heart disease Prostate cancer Colon cancer CVD (cardiovascular disease) Diabetes Mother Ovarian cancer Gout Sister Ovarian cancer Social History Housing: House Alcohol intake: former Patient Tobacco Use Status: Former Tobacco user Years Smoked: 30 +/- e-Cigarette/Vaping Use: Never Used Second Hand Smoke Exposure: No Current occupational status: retired Cognitive needs: Yes Hearing needs: No Vision needs: Yes Questionnaire PHQ-9 Over the last 2 weeks, how often have you been bothered by any of the following problems? 1. Little interest or pleasure in doing things: not at all 2. Feeling down, depressed, or hopeless: not at all 3. Trouble falling or staying asleep, or sleeping too much: not at all 4. Feeling tired or having little energy: not at all 5. Poor appetite or overeating: not at all 6. Feeling bad about yourself - or that you are a failure or have let yourself or your family down: not at all 7. Trouble concentrating on things, such as reading the newspaper or watching television: not at all 8. Moving or speaking so slowly that other people could have noticed. Or the opp osite - being so fidgety or restless that you have been moving around a lot more than usual: not at all 9. Thoughts that you would be better off or of hurting yourself in some way: not at all Total score: 0 Depression Screening Interpretation: Negative Depression Screening Done: Yes Source: Developed by Drs. Doug Boone, Rachelle Calvo, Eran Weller and colleagues, with an educational juliet from [employer]. Thrive Questionnaire Date Thrive assessed: 05/04/24 I am a: Patient What is your living situation today?: I have a steady place to live Within the past 12 months, did the food you bought not last and you didn't have the money to get more?: Never true Within the past 12 months, did you worry whether your food would run out before you got money to buy more?: Never true Do you have trouble paying for medicines?: No Do you have trouble getting transportation to medical appointments?: No Do you have trouble paying your heating and electricity bill?: No Do you have trouble taking care of your child, family member or friend?: No Do you have trouble with day-to-day activities such as bathing, preparing meals, shopping, managing finances, etc.?: No Are you currently unemployed and looking for a job?: No Are you interested in more education?: No Please select the resources that you would like help with: None Currently or been in a relationship where the following occur: No concerns reported THRIVE Score: 0 AUDIT C Alcohol Use Questionnaire (AUDIT-C) 1. How often do you have a drink containing alcohol?: Monthly or less 2. How many drinks containing alcohol do you have on a typical day when you are drinking?: 1 or 2 (Martini) 3. How often do you have six or more drinks on one occasion?: Never Total Score: 1 ROSIE-7 AMB Questionnaire ROSIE-7 Date ROSIE - 7 assessed: 09/19/23 Source: Developed by Drs. Doug Boone, Rachelle Calvo, Eran Weller and colleagues, with an educational juliet from [employer]. Review of Systems Const Denies body aches, Denies chills, Denies fever(s), Denies headache(s) and Denies poor appetite Eyes Reports no additional complaints ENT Denies dysphagia, Denies dizziness, Denies headache(s) and Denies odynophagia Card Denies chest pain, Denies syncope, Denies edema, Denies irregular heart rhythm, Denies lightheadedness and Denies dyspnea Resp Denies cough and Denies dyspnea GI Denies abdominal pain, Denies constipation, Denies dysphagia, Denies diarrhea, Denies nausea, Denies odynophagia and Denies vomiting Reports no additional complaints Musc Reports no additional complaints and Denies abnormal gait Skin/Breast Reports system reviewed and no additional complaints, except as documented Neuro Denies abnormal gait, Denies dizziness, Denies syncope and Denies headache(s) Psych Reports no additional complaints Physical exam (Primary Care) Vital Signs: Last Vital Signs Pulse 67 05/04/24 12:59 BP 122/60 05/04/24 12:59 Pulse Ox 95 05/04/24 12:59 Oxygen Delivery Method Room Air 05/04/24 12:59 BMI result Body Mass Index 24.1 Tobacco/Smoking Status: Tobacco use Status Tobacco use date assessed 09/19/23 05/04/24 13:01 Patient Tobacco Use Status Former Tobacco user 05/04/24 13:01 e-Cigarette/Vaping Use Never Used 05/04/24 13:01 PHQ-9: PHQ-9 Score PHQ-9: Total score 0 05/04/24 13:13 Depression Screening Interpretation: Negative Thrive Assessment: Date of Thrive Assessment Date Thrive assessed 05/04/24 05/04/24 13:01 Currently or been in a relationship where the following occur: No concerns reported Const General: cooperative, healthy appearing, comfortable and no acute distress Orientation/consciousness: patient oriented x3 HENMT Head: Yes normocephalic Ears: hearing grossly normal bilaterally General nose exam: Normal external nose present Eyes General: appearance normal, both eyes and all related structures Conjunctivae: conjunctivae normal Neck Neck: Yes full ROM and Yes no lymphadenopathy Resp Effort & Inspection: normal respiratory effort Auscultation: clear to auscultation bilaterally, no crackles, no rales, no rhonchi and no wheezes Cardio Rate: regular rate Rhythm: regular rhythm Skin General skin exam: no rashes or lesions noted Neuro General: patient oriented x3 Gait exam (Neuro): Normal gait present Extrem General: Yes normal to inspection, Yes full ROM and No edema Psych Affect: normal affect Attitude: cooperative Insight: Good insight present (Psych) Judgement: Good judgement present (Psych) Office Procedures Flu Questionnaire Does the patient have a severe egg allergy?: No Does the patient have severe life threatening allergies?: No Does the patient have a fever or illness today?: No Has the patient ever had Guillain-Nephi Syndrome?: No Has the patient ever had any past reaction to a flu shot?: No Immunizations Fluarix Triv [id number] (PF) 45 mcg (15 mcg x 3)/0.5 mL IM syringe Performing Provider: Bonnie Cárdenas PA-C Performing Location: [facility] Administered by: PAWEL Woods on 05/04/24 13:10 Dose Route Admin Location Dispensed Lot Number Expiration Date [employer] 0.5 mL IM Left Deltoid 0.5 mL [id number] 01/07/25 [id number] [email or web address] VIS Given Date VIS Provided VIS Publication Date 05/04/24 Single Vaccine 21 Eligibility Eligibility Date Funding Source Not [facility] Eligible 05/04/24 Private Coding Level of Care Code Est Pt Level 3 (75925) Diagnoses Hypercholesterolemia E78.00 Hypertension, unspecified type I10 Hypertension type: unspecified Impaired glucose tolerance R73.02 CAD (coronary artery disease) I25.10 Assessment & Plan Assessment & Plan (1) Hypercholesterolemia: Code(s): E78.00 - Pure hypercholesterolemia, unspecified Category: Medical Plan: Avoid foods that are high in cholesterol such as red meat, fried foods, eggs and baked goods. Triglyceride goal of less than 150 and LDL goal of less than 70. Continue on pravastatin. Advised patient to have repeat cholesterol labs as last ones were above her goal. (2) Hypertension: Code(s): I10 - Essential (primary) hypertension Category: Medical Qualifiers: Hypertension type: unspecified Qualified Code(s): I10 - Essential (primary) hypertension Plan: Continue on current blood pressure medication. Avoid salt intake and encourage healthy diet and regular exercise. (3) Impaired glucose tolerance: Code(s): R73.02 - Impaired glucose tolerance (oral) Category: Medical Plan: Decrease the amount of carbohydrates such as pasta, bread, rice, and potatoes and limit the amount of sweets. Although fruits are generally healthy they should be eaten in moderation as they are still high in sugar. Hemoglobin A1c goal of less than 7%. (4) CAD (coronary artery disease): Comment: Cardiac catheterization October 2021 nonobstructive Code(s): I25.10 - Atherosclerotic heart disease of [place] coronary artery without angina pectoris Category: Medical Plan: Encouraged good control of blood pressure, cholesterol and blood sugars. Plan This note was constructed using voice recognition software. While every effort has been made to ensure accuracy and truck loader overhead crane, still areas may have been included sometimes these areas may affect the content or meeting of the given symptoms. Total time spent caring for the patient today was 30 minutes. This includes time spent before the visit reviewing the chart, time spent during the visit, and time spent after the visit and documentation. Orders: Orders Influenza [id number] Immunization Today Z23 - Encounter for immunization Lipid Panel Today E78.00 - Pure hypercholesterolemia, unspecified Vitamin D 25-OH (D2 and D3) Today Z00.00 - Encounter for general adult medical examination without abnormal findings Hemoglobin A1c Today R73.02 - Impaired glucose tolerance (oral)
== END 2024-05-04 13:31 | disposition home or self-care (01) ==
PROVIDERS: PCP Internal Medicine
DX: E78.00 Pure hypercholesterolemia, unspecified (principal); I10 Essential (primary) hypertension; R73.02 Impaired glucose tolerance (oral); I25.10 Atherosclerotic heart disease of native coronary artery without angina pectoris; Z23 Encounter for immunization

== ENCOUNTER → 2024-05-04 12:56 | Outpatient (BNVA) | payer MEDICARE, SELFPAY | PROVIDERS: PCP Internal Medicine | DX: Z23 Encounter for immunization (principal); E78.00 Pure hypercholesterolemia, unspecified; I10 Essential (primary) hypertension; R73.02 Impaired glucose tolerance (oral); I25.10 Atherosclerotic heart disease of native coronary artery without angina pectoris | CPT/HCPCS: 90471; 90656; 96127; 99212 ==

== ENCOUNTER 2024-06-20 13:00 | Outpatient (RCR) | payer MEDICARE, SELFPAY ==
--- NOTE | 2024-03-21 15:21 | MHC.PT.EP ---
[facility] [place] Office [place] Office [place] Office [address] [phone] F: [phone] F: [phone] F: [phone] F: [phone] Physical Therapy Plan of Care Date of Evaluation: 03/21/24 Date of Surgery: NA Diagnosis: L SIDED WEAKNESS S/P STROKE Assessment: Pt IS 83 YO F JUST ABOUT 2 YRS OUT FROM STROKE AFFECTING L SIDE OF BODY. Pt REPORTS SIGNIFICANT GAINS TO THIS POINT, BUT WOULD LIKE TO BE STRONER, MORE INDEPENDENT AND SAFER WITH GT. PRESENTS WITH INCEREASED TONE/DECREASED MOTOR CONTROL L UE AND LE (CURRENTLY HAVING OT 2X/WK AT [facility]). ASSIST FOR TRANSFERS AND GT. SHOULD BENEFIT FROM PT TO ADDRESS THESE ISSUES. OF NOTE, SPOKE WITH Pt/ RE TRANSITION TO CENTER PROGRAM AT SOME POINT (HAS HAD ALOT OF PT TO THIS POINT) Frequency and Duration: The patient will be seen 2X/WK X 12 WKS Short Term Goals: 1. S SIT<>SUP 2. S TRANSF SIT<>STAND WITH LRAD 3. I HEP WITH DC EX PLAN Linking Machine Operator Goals: 1. IMPROVED CONTROL WITH LE THEREX 2. S GT WITH LRAD X 100 FT Treatment Plan: Modalities to reduce pain, spasms and effusion. Manual therapy to restore motion and function. Therapeutic exercise to improve strength and flexibility. Neuromuscular re-education for posture and balance. Therapeutic activities to return to functional activities of daily living. Electronically signed by: LEO PRESTON PT Please sign and return to therapist. Thank you for your referral.
--- NOTE | 2024-05-04 12:43 | MHC.PT.OD ---
[facility] [place] Office [place] Office [place] Office [address] [phone] F: [phone] F: [phone] F: [phone] F: [phone] Physical Therapy Daily Note Diagnosis: L SIDED WEAKNESS S/P STROKE Date of Surgery: NA Date of Evaluation: 03/21/24 Date of Treatment: 05/04/24 Treatments to Date: 9 Cancellations to Date: No Shows to Date: Authorized Visits: Insurance End Date: Precautions/ Contraindications:HTN (MEDICINE CONTROLLED) REPORTS HAS FALLEN 2X SINCE STROKE (CHAIR WAS NOT LOCKED) L LE DVT 11/30 Subjective: Pt expressing has not heard from clinic for schedule of fitting for custom chair. Inquires about booking more appts. Pain Score and Location: 0 Objective Flowsheet: Tests & Measures Pt did not have her AFO or her personal gait belt with her during session Used office gait belt for safety during session Exercises TRIAL REC BIKE AT END OF SESSION WITH SwingShot ASSIST FOR FOOT PLACEMENT INTO PEDALS WITH US OF STRAPS (SNEAKERS ON/AFO OFF) X 8 MIN TOTAL (ABLE TO MAKE FULL REVS WITHOUT FEET FALLING OUT..CUES TO DECREASE HIP ER) Gait belt applied. She does not have full extension in her L knee (lag due to weakness), Partial AROM L DF. 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 Static validation engineer the parallel bars x >1 minute x 2 stands with cues for erect posture, avoidance of knee flexion in stance, cues for L hip/L shoulder postural correction. Sit<>stand on L LE, then with 5 reps of stepping with R LE, stepping back with CGA /gait belt blocking of L knee. Pt requesting therapist stand behind her, therapist educated re: will not be guarding her that way and need to block L knee/ LE anteriorly. Therapist recommendation for technique to validation engineer front despite patient recommendation. Pt educated: rationale. Completed standing TKE with cues for symmetry of weight shift in standing. Standing hip abd x 2 set 10R with cues for L knee extension (in stance and symmetrical weight bearing when performing on the R side). Ambulation along length of parallel bars x 4 length with CGA guarding (pt did not have AFO today but pt requesting to trial states ambulates at home at times without). Cues for improved activation of L LE during transfer training with goal/use of L UE as able for delivery driver/supervisor. Stand<>pivot transfer towards the left exiting to large red mat MOD A for B LE management for safety with use of gait belt. SAQ x 2 sets 5R with cues for encouragement of activity. Completed clamshell x 10R on R LE., 5 reps on L LE. Return transfer exiting red mat toward R side with CGA with gait belt on. SIT<>STAND FROM WC INTO BARS WITH SHAKILA/CG/CL S DURING SESSION STANDING WT SHIFT R AND L WITH R HAND USE ON BAR X 10 R, WT SHIFT A/P, LAT R AND L WITH CG NO HAND USE ON BAR X 10 R EA, R SHLDER ADD, ABD, FLEX, EXT WITH YELLOW TB TO CHALLENGED BAL X 10 R EA. SEATED RESTS PRN T/O SESSION IN PARALLEL BARS WITH CG AND AFO ON FOR A/P GT X 10 LENGTHS, A/P AND LAT LUNGE X 10 R EA WT SHIFT A/P, R AND L X 10 R EA R HAND ON BAR/R HAND OFF BAR WITH CG T/O ATTEMPT AT RIGHTING REACTION FOR AP WT SHIFT X 10 R WITH PT ASSIST (Pt C/O R LBP SO SEATED REST) WT SHIFTING WITH PT NUDGE AND Pt WORKING ON COUNTER ACTION, GT WITH ST CANE WITH STEP TO AND STEP THROUGH GT PATTERN WITH CG/MIN A Pt did not bring in quad cane DISCUSSED FREQUENCY OF PT VISITS. Pt PREFERS 2X/WK. RECOMMENDED SHE LOOK INTO PROGRAMS TO CONTINUE WITH UPON DC Modalities Assessment: 05/04/24: Pt requested therapist stand behind her for ambulation and transfers, however due to L knee instability and concerns for safety patient was educated in rationale for therapist's decision to guard in the front of her. Therapist attempted to encourage patient to perform transfer leading toward her left side however pt deferred that I don't do it that way at home. Therapist educated patient in potential benefits of trying transfers toward involved side as well as uninvolved. Pt did not bring personal AFO/gait belt with her to appt. Therapist used gait belt in the office. Lengthy conversation with patient re: goals of improving transfers/bed mobility/safety/strength with standing. Pt noted to make comment about office not having adequate equipment in reference to quad cane. Pt educated in goal of current status and was told per her request office will order a quad cane to address her need as she did not bring her own in this date. Pt to see her PCP Dr. Moore today. SB, PT, DPT Therapist called [facility] to ensure orders were received ([phone]) and was told they have her order and the office will be calling her in the next few days for an they are booking into end of May. Overall patient requires cues for safety/posture, has weakness of core/trunk/ L LE and will benefit from ongoing PT twice weekly 2x/week x 4 weeks. Pt is scheduled to see Dr. Moore today at 1:00pm. NEEDS CONSTANT CUES FOR POSTURE, SEATED RESTS PRN (AT TIMES NEEDS CUES TO REST BECAUSE OF FATIGUE WITH LOSS OF FORM) PT Plan: LE STRENGTHENING/WORK ON CONTROL TRNSF TRNG, GT TRNG, BAL WORK Short Term Goals: 1. S SIT<>SUP 2. S TRANSF SIT<>STAND WITH LRAD 3. I HEP WITH DC EX PLAN Aircraft Rigging And Controls Mechanic Goals: 1. IMPROVED CONTROL WITH LE THEREX 2. S GT WITH LRAD X 100 FT Electronically signed by: iNmco Blake, PT, DPT
== END 2024-08-03 08:58 | disposition home or self-care (01) ==
LOC: HO.PTWFD 13:00
PROVIDERS: PCP Internal Medicine
DX: R53.1 Weakness (principal)
CPT/HCPCS: 97110; 97112; 97116; 97162; 97530; 97535

== ENCOUNTER 2024-06-24 12:50 | Emergency (ER) | payer MEDICARE, SELFPAY ==
[2024-06-24 12:55] VITALS: BP 161/74; PULSE 87; RESP 18; TEMP 36.7; O2SAT 99; BMI 23.2
--- NOTE | 2024-06-24 12:55 | ED.GENADULT ---
HPI - General Adult General Chief complaint: Urogenital-Female Stated complaint: hallucinations Time Seen by Provider: 06/24/24 16:50 Source: patient Limitations: no limitations History of Present Illness ED Provider: Gricelda Mdoi PA-C HPI narrative: 83-year-old female with a history of UTIs, hypertension, hyperlipidemia, CAD, presents from urgent care given need for further assessment for altered mental status. The patient states she has been having visual hallucinations ?I am seeing jhoana growing allover my [place] Per the patient and the daughter who is at bedside, the patient had a similar episode last year and she was positive for urinary tract infection. The patient is aware that what she has visualizing is not real. Denies fever, back pain, abdominal pain, nausea vomiting. Related Data Home Medications ?Medication ?Instructions ?Recorded ?Confirmed vitamins A,C,V-byvd-kkbvpr 4,296 1 cap PO DAILY 04/15/21 06/28/24 mcg-226 mg-90 mg capsule (PreserVision AREDS) furosemide 20 mg tablet See Rx Instructions PO .COMPLEX 03/09/23 06/28/24 acetaminophen 325 mg tablet 325 mg PO QID PRN 06/28/24 06/28/24 (Tylenol) cholecalciferol (vitamin D3) 25 50 mcg PO DAILY 06/28/24 06/28/24 mcg (1,000 unit) tablet docusate sodium 100 mg tablet 100 mg PO DAILY 06/28/24 06/28/24 hydroxyzine HCl 25 mg tablet See Rx Instructions .Route 06/28/24 06/28/24 .COMPLEX PRN itching metoprolol tartrate 50 mg tablet 50 mg PO .QD 06/28/24 Previous Rx's ?Medication ?Instructions ?Recorded LEFT AFO #1 ea 11/30/22 left leg brace, from her knee to #1 ea 12/10/22 her ankle rivaroxaban 20 mg tablet (Xarelto) 20 mg PO DAILY 90 days #90 tabs 12/16/22 baclofen 10 mg tablet 10 mg PO TID 90 days #270 tabs 05/18/23 mirtazapine 15 mg tablet 15 mg PO BEDTIME #90 tabs 11/22/23 trazodone 50 mg tablet 50 mg PO BEDTIME #90 tabs 01/31/24 pravastatin 10 mg tablet 10 mg PO BEDTIME #90 tabs 03/03/24 Power wheelchair #1 ea 04/30/24 Custom wheelchair #1 ea 05/01/24 lisinopril 40 mg tablet 40 mg PO DAILY #90 tabs 06/28/24 Allergies Allergy/AdvReac Type Severity Reaction Status Date / Time Penicillins [PENICILLINS] Allergy Severe THROAT Verified 06/28/24 13:25 SWELLS Iodinated Contrast Media Allergy Intermediate Rash Verified 06/28/24 13:25 penicillin V Allergy Unknown Throat Verified 06/28/24 13:25 Swells carvedilol AdvReac Intermediate rash Verified 06/28/24 13:25 cyclosporine AdvReac Intermediate hypertensiv Verified 06/28/24 13:25 e Review of Systems Review of Systems: Yes all other systems are reviewed and are negative Constitutional: Constitutional: Denies fatigue and Denies fever(s) Cardiovascular: Cardiovascular: Denies chest pain Gastrointestinal: Gastrointestinal: Denies abdominal pain, Denies nausea and Denies vomiting Genitourinary: Genitourinary: Reports dysuria Musculoskeletal: Musculoskeletal: Reports back pain Endocrine: Endocrine: Denies fatigue PMFSH Past Medical History Attestation statement: The following information was validated with the patient. Medical History (Updated 06/28/24 @ 17:30 by Lucas Moore MD) Left leg swelling Rash CAD (coronary artery disease) Abnormal cardiac function test SOB (shortness of breath) on exertion Adult general medical exam Post-menopausal GERD (gastroesophageal reflux disease) Insomnia Hypertension Hypercholesterolemia Surgical History History of cardiac cath History of colonoscopy No pertinent past surgical history Family History Family History Father Heart disease Prostate cancer Colon cancer CVD (cardiovascular disease) Diabetes Mother Ovarian cancer Gout Sister Ovarian cancer Social History Social History Housing: House Alcohol intake: current Alcohol intake frequency: holidays/special occasions only Patient Tobacco Use Status: Former Tobacco user Years Smoked: 30 +/- e-Cigarette/Vaping Use: Never Used Second Hand Smoke Exposure: No service: No Current occupational status: retired Cognitive needs: Yes Hearing needs: No Vision needs: Yes Physical Exam ED Vital Signs: Vital Signs - 24 hr 06/24/24 12:55 Temperature 98.1 F Pulse Rate 87 Respiratory Rate 18 Blood Pressure 161/74 H Pulse Oximetry 99 Oxygen Delivery Method Room Air BMI result Body Mass Index 23.2 Const Other: Alert, well-appearing Resp Effort & Inspection: normal respiratory effort Cardio Other: Normal peripheral perfusion GI Other: Abdomen is soft, nondistended nontender Skin Other: Warm dry no rash Course Course Course Narrative: This is an RME performed by Barak Willoughby CNP: Additional HPI, ROS, PE not included below will be deferred to primary provider. patient is an 83-year-old female who presents emergency department for evaluation, admits to a history of urinary tract infection with subsequent visual hallucinations. She recently started with visual hallucinations where she sees jhoana all over her home. Also has associated nausea but denies symptoms. Presented to [facility] walk-in clinic today, where she had a urinalysis performed revealing 1+ WBC, nitrite negative - was advised to come to the ED for workup for sepsis. Denies fevers. Plan: Serum labs, urinalysis, will obtain lactic acid and blood cultures; pulse>90 with concern for urinary tract infection Medications Administered Discontinued Medications Generic Name Dose Route Start Last Admin Trade Name Freq PRN Reason Stop Dose Admin Cephalexin HCl 500 mg 06/24/24 18:13 06/24/24 18:20 Cephalexin 500 Mg Capsule PO 06/24/24 18:14 500 mg ONCE ONE Administration Medical Decision Making Medical Decision Making [facility] Narrative: 83-year-old female with a history of UTIs, hypertension, hyperlipidemia, CAD, presents from urgent care given need for further assessment for altered mental status. The patient states she has been having visual hallucinations ?I am seeing jhoana growing allover [place]?. Per the patient and the daughter who is at bedside, the patient had a similar episode last year and she was positive for urinary tract infection. The patient is aware that what she has visualizing is not real. Denies fever, back pain, abdominal pain, nausea vomiting. Problem recurrent UTIs age History: Per patient and her daughter I have considered the following differential diagnoses: UTI, pyelonephritis, urosepsis, new altered mental status Plan: The patient is not altered she recognizes that she has these symptoms, the daughter is here at bedside to verify, that this has happened in the past. We will be treating for a UTI, her urine is in process, screening labs were already performed. The patient is asking to be discharged before results are completed. This is not sepsis, the patient is afebrile, she has stable vitals, she has no systemic symptoms such as nausea vomiting back pain to suggest pyelonephritis. I have independently reviewed the following tests: Labs: No leukocytosis, not anemic, no electrolyte abnormality, renal function normal Lab Data 06/24/24 13:14 06/24/24 13:14 Labs: Lab Results 06/24/24 06/24/24 Range/Units 13:14 18:16 WBC 7.6 (4.8-10.8) X10*3/uL RBC 3.85 L (4.20-5.50) X10*6/uL Hgb 11.8 L (12.0-16.0) g/dl Hct 36.0 L (37.0-47.0) % MCV 93.5 (80.0-98.0) fL MCH 30.6 (27.0-33.0) pg MCHC 32.8 (31.0-35.0) g/dl RDW 14.0 (11.0-16.0) % Plt Count 397 (160-400) X10*3/uL MPV 9.3 L (9.4-12.3) fL Immature Gran % (Auto) 0.3 (0.0-0.4) % Neut % (Auto) 70.8 (45-73) % Lymph % (Auto) 17.5 L (20-40) % Leslie % (Auto) 9.1 (2-11) % Eos % (Auto) 1.4 (0-4) % Baso % (Auto) 0.9 (0-2) % Lymph # (Auto) 1.3 (1.2-4.9) X10*3/uL Leslie # (Auto) 0.7 (0.1-1.2) X10*3/uL Eos # (Auto) 0.1 (0.0-0.4) X10*3/uL Baso # (Auto) 0.1 (0.0-0.2) X10*3/uL Abs Immat Gran (auto) 0.02 (0.00-0.03) X10*3/uL Absolute Neuts (auto) 5.4 (2.0-8.3) x10*3/uL Absolute Nucleated RBC 0.000 (0.0-0.012) X10*3/uL Nucleated RBC % (auto) 0.0 (0.0-0.2) /100WBC Sodium 140 (135-145) mmol/L Potassium 3.8 (3.3-5.1) mmol/L Chloride 103 (96-108) mmol/L Carbon Dioxide 27 (22-29) mmol/L Anion Gap 14 (12-20) BUN 18 H (9-16) mg/dL Creatinine 1.13 (0.5-1.4) mg/dL Estim Creat Clear Calc 35.3 Estimated GFR 46 Random Glucose 134 H (60-115) mg/dL Lactic Acid 2.0 (0.5-2.0) mmol/L Calcium 9.2 (8.4-10.2) mg/dL Total Bilirubin 0.5 (0.0-1.0) mg/dL AST 48 H (5-31) U/L ALT 23 (0-31) U/L Alkaline Phosphatase 81 (39-117) U/L Total Protein 7.8 (6.5-8.0) g/dL Albumin 4.1 (3.5-5.0) g/dL Urine Color Yellow Urine Appearance Clear Urine pH 6.5 (5.0-9.0) Ur Specific [place] <= 1.005 (1.005-1.025) Urine Protein Negative (Neg-Trace) mg/dL Urine Glucose (UA) Negative (Negative) mg/dL Urine Ketones Negative (Negative) mg/dL Urine Blood Negative (Negative) Urine Nitrite Negative (Negative) Ur Leukocyte Esterase Moderate (2+) H (Negative) Urine RBC 0-2 (0-2) /HPF Urine WBC 6-10 H (0-5) /HPF Ur Squamous Epith Cells 3-5 (0-2) /HPF Urine Bacteria None Seen (None Seen) Hyaline Casts 0-2 (0-2) /LPF Discharge Plan Discharge Clinical Impression: Hallucination, visual Patient Disposition: Home, Self-Care Instructions: Hallucinations (ED) Additional Instructions: We are treating you for a suspect urinary tract infection. I will call to confirm the results this evening, the remainder of your labs were normal. Follow up with your primary care provider as needed. Prescriptions: No Action (DME) LEFT AFO See Rx Instructions .Route .MEDSUPPLY Qty: 1 0RF Rx Instructions: LEFT HEMIPARESIS (DME) left leg brace, from her knee to her ankle See Rx Instructions .Route .MEDSUPPLY Qty: 1 0RF Rx Instructions: As directed Xarelto 20 mg tablet 20 mg PO DAILY 90 Days Qty: 90 3RF baclofen 10 mg tablet 10 mg PO TID 90 Days Qty: 270 1RF mirtazapine 15 mg tablet 15 mg PO BEDTIME Qty: 90 3RF pravastatin 10 mg tablet 10 mg PO BEDTIME Qty: 90 3RF (DME) Power wheelchair See Rx Instructions .Route .MEDSUPPLY Qty: 1 0RF Rx Instructions: As directed (DME) Custom wheelchair See Rx Instructions .Route .MEDSUPPLY Qty: 1 0RF Rx Instructions: As directed PreserVision AREDS 14,320-226-200 mdjg-cs-rlhc capsule 1 cap PO DAILY furosemide 20 mg tablet See Rx Instructions PO .COMPLEX Rx Instructions: 40 mg in am and 20 mg at 3 pm orally; trazodone 50 mg tablet 50 mg PO BEDTIME Qty: 90 1RF hydroxyzine HCl 25 mg tablet See Rx Instructions .ROUTE .COMPLEX PRN (Reason: itching) Rx Instructions: 1-2 tabs bedtime acetaminophen [Tylenol] 325 mg tablet 325 mg PO QID PRN docusate sodium 100 mg tablet 100 mg PO DAILY cholecalciferol (vitamin D3) 25 mcg (1,000 unit) tablet 50 mcg PO DAILY metoprolol tartrate 50 mg tablet 50 mg PO .QD lisinopril 40 mg tablet 40 mg PO DAILY Qty: 90 2RF Rx Instructions: if BP low may hold SBP < 100) Interventions: ED Discharge Assessment Last Done: 06/24/24 18:47 Discharge Date/Time: 06/24/24 18:47 Print Language: Estonian
[2024-06-24 13:24] LABS: MANUAL DIFF FLAG NO
[2024-06-24 13:25] LABS: Basophils Absolute Auto 0.1 X10*3/uL (0.0-0.2); Basophils Percent Auto 0.9 % (0-2); Eosinophils Absolute Auto 0.1 X10*3/uL (0.0-0.4); Eosinophils Percent Auto 1.4 % (0-4); Hemoglobin 11.8 g/dl (12.0-16.0); Imm Gran Abs Auto 0.02 X10*3/uL (0.00-0.03); Imm Gran Pct Auto 0.3 % (0.0-0.4); Lymphocytes Absolute Auto 1.3 X10*3/uL (1.2-4.9); Lymphocytes Percent Auto 17.5 % (20-40); Mean Corpuscular HGB Conc 32.8 g/dl (31.0-35.0); Mean Corpuscular Hemoglobin 30.6 pg (27.0-33.0); Mean Corpuscular Volume 93.5 fL (80.0-98.0); Mean Platelet Volume 9.3 fL (9.4-12.3); Monocytes Absolute Auto 0.7 X10*3/uL (0.1-1.2); Monocytes Percent Auto 9.1 % (2-11); Neutrophils Absolute Auto 5.4 x10*3/uL (2.0-8.3); Neutrophils Percent Auto 70.8 % (45-73); Platelet Count 397 X10*3/uL (160-400); Red Blood Count 3.85 X10*6/uL (4.20-5.50); White Blood Count 7.6 X10*3/uL (4.8-10.8)
[2024-06-24 13:39] LABS: Alanine Aminotransferase 23 U/L (0-31); Albumin Level 4.1 g/dL (3.5-5.0); Alkaline Phosphatase 81 U/L (39-117); Anion Gap 14 (12-20); Aspartate Amino Transferase 48 U/L (5-31); Bilirubin Total 0.5 mg/dL (0.0-1.0); Blood Urea Nitrogen 18 mg/dL (9-16); Calcium 9.2 mg/dL (8.4-10.2); Carbon Dioxide 27 mmol/L (22-29); Chloride 103 mmol/L (96-108); Creatinine Clr Calc Pharmacy 35.3; Estimated Glomerular Filt Rate 46; Glucose Random 134 mg/dL (60-115); Potassium 3.8 mmol/L (3.3-5.1); Sodium 140 mmol/L (135-145); Total Protein 7.8 g/dL (6.5-8.0)
--- NOTE | 2024-06-24 17:28 | PC.NURSE ---
ED physics technician attempted to provide urine sample. Sample contaminated with toilet paper. JOSÉ MIGUEL Mac notified.
--- NOTE | 2024-06-24 18:13 | PC.NURSE ---
Urine specimen obtained
[2024-06-24] MEDS: cephALEXin 500 MG CAPSULE PO (18:20)
[2024-06-24 18:23] LABS: Appearance Urine Clear; Color Urine Yellow; Glucose Urine UA Negative (Negative); Leukocyte Esterase Urine Moderate (2+) (Negative); Nitrite Urine Negative (Negative); PH 6.5 (5.0-9.0); Specific Gravity - Urine <= 1.005 (1.005-1.025); UMIC TRIGGER UACC YES; Urine Blood Negative (Negative); Urine Ketones Negative (Negative); Urine Protein Negative (Neg-Trace)
[2024-06-24 18:25] LABS: Bacteria Urine None Seen (None Seen); Hyaline Casts Urine 0-2 /LPF (0-2); RBC Urine 0-2 /HPF (0-2); UACC Culture Trigger YES
[2024-06-24 18:47] VITALS: BP 161/74; PULSE 87; RESP 18; TEMP 36.7; O2SAT 99
== END 2024-06-24 18:47 | disposition home or self-care (01) ==
PROVIDERS: Nurse Practitioner Family; Emergency Provider Internal Medicine; PCP Internal Medicine
DX: R44.1 Visual hallucinations (principal); R41.82 Altered mental status, unspecified; R30.0 Dysuria; I25.10 Atherosclerotic heart disease of native coronary artery without angina pectoris; Z87.891 Personal history of nicotine dependence; Z79.899 Other long term (current) drug therapy; Z87.440 Personal history of urinary (tract) infections
CPT/HCPCS: 36415; 51702; 80053; 81001; 83605; 85025; 87040; 87086; 99284

== ENCOUNTER 2024-06-28 13:05 | Outpatient (AMB) | payer MEDICARE, SELFPAY ==
--- NOTE | 2024-06-28 13:20 | MHC.PC.OV ---
Vital Signs 06/28/24 13:21 Height 5 ft 6 in Weight 149 lb BMI 24.0 BP 128/60 Blood Pressure Location Rt brachial Position Sitting Pulse 77 Pulse Source Pulse Oximeter Pulse Oximetry (%) 98 Oxygen Delivery Method Room Air Intake Visit Reasons: [facility] stopped Baclofen abruptly Reel Stripper Required: No Accompanied by: Daughter Allergies Penicillins [PENICILLINS] Allergy (Severe, Verified 06/28/24 13:25) THROAT SWELLS Iodinated Contrast Media Allergy (Intermediate, Verified 06/28/24 13:25) Rash penicillin V Allergy (Unknown, Verified 06/28/24 13:25) Throat Swells carvedilol Adverse Reaction (Intermediate, Verified 06/28/24 13:25) rash cyclosporine Adverse Reaction (Intermediate, Verified 06/28/24 13:25) hypertensive Medication List - Last Reconciled 06/28/24 by Lucas Moore MD [left leg brace, from her knee to her ankle As directed] acetaminophen (Tylenol) 325 mg PO QID PRN baclofen 10 mg PO TID 90 days cholecalciferol (vitamin D3) 50 mcg PO DAILY [Custom wheelchair As directed] docusate sodium 100 mg PO DAILY furosemide 40 mg in am and 20 mg at 3 pm orally; hydroxyzine HCl 1-2 tabs bedtime [LEFT AFO LEFT HEMIPARESIS] lisinopril 40 mg PO DAILY metoprolol tartrate 50 mg PO .QD mirtazapine 15 mg PO BEDTIME [Power wheelchair As directed] pravastatin 10 mg PO BEDTIME rivaroxaban (Xarelto) 20 mg PO DAILY 90 days trazodone 50 mg PO BEDTIME vitamins A,C,C-fchf-lsbjat 4,296 mcg-226 mg-90 mg (PreserVision AREDS) 1 cap PO DAILY Tobacco use date assessed: 09/19/23 Fall risk assessment: 1 Fall in past year Last assessed Fall Risk: 06/28/24 Dental Screening Dental Screen Date: 06/28/24 Did you have a dental visit in the last 12 months?: No Did you have a dental problem in the last 6 months where you did not have access to dental care?: No Was dental information given to patient?: Patient has dentist HPI 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 Coming in for follow-up. Review of the notes was in the emergency room for confusion and was found to have a UTI. Patient had some misunderstanding . Patient continued to have the confusion went to the Urgent Center and was given Cipro patient took 1 dose and because of the confusion still went to the [facility] emergency room. Patient was told there was no infection and was advised to stop the antibiotic. They were explained to that baclofen withdrawals could can cause confusion. Patient is here for follow-up denies any dysuria. Feeling well right [facility] Medical History (Updated 06/28/24 @ 17:30 by Lucas Moore MD) Left leg swelling Rash CAD (coronary artery disease) Abnormal cardiac function test SOB (shortness of breath) on exertion Adult general medical exam Post-menopausal GERD (gastroesophageal reflux disease) Insomnia Hypertension Hypercholesterolemia Surgical History History of cardiac cath History of colonoscopy No pertinent past surgical history Family History Father Heart disease Prostate cancer Colon cancer CVD (cardiovascular disease) Diabetes Mother Ovarian cancer Gout Sister Ovarian cancer Social History Housing: House Alcohol intake: current Alcohol intake frequency: holidays/special occasions only Patient Tobacco Use Status: Former Tobacco user Years Smoked: 30 +/- e-Cigarette/Vaping Use: Never Used Second Hand Smoke Exposure: No service: No Current occupational status: retired Cognitive needs: Yes Hearing needs: No Vision needs: Yes Questionnaire Thrive Questionnaire Date Thrive assessed: 05/04/24 AUDIT C Alcohol Use Questionnaire (AUDIT-C) 2. How many drinks containing alcohol do you have on a typical day when you are drinking?: 1 or 2 3. How often do you have six or more drinks on one occasion?: Never Total Score: 0 ROSIE-7 AMB Questionnaire ROSIE-7 Date ROSIE - 7 assessed: 09/19/23 Source: Developed by Drs. Doug Bonoe, Rachelle Calvo, Eran Weller and colleagues, with an educational juliet from [employer]. Physical exam (Primary Care) Vital Signs: Last Vital Signs Pulse 77 06/28/24 13:21 BP 128/60 06/28/24 13:21 Pulse Ox 98 06/28/24 13:21 Oxygen Delivery Method Room Air 06/28/24 13:21 BMI result Body Mass Index 24.0 Tobacco/Smoking Status: Tobacco use Status Tobacco use date assessed 09/19/23 06/28/24 13:24 Patient Tobacco Use Status Former Tobacco user 06/28/24 13:24 e-Cigarette/Vaping Use Never Used 06/28/24 13:24 Thrive Assessment: Date of Thrive Assessment Date Thrive assessed 05/04/24 06/28/24 13:24 Const Other: Patient comes in on wheelchair General: alert; No acute distress Eyes Conjunctivae: conjunctivae normal Cardio Rate: regular rate Rhythm: regular rhythm GI Inspection: Yes normal to inspection Extrem General: Yes normal to inspection and No edema Results AMB Urinalysis, Automated UA Leukoctes 0 Rosa/uL Last Edit by Francis Sage [facility] on 06/28/24 14:24 UA Nitrite Negative Last Edit by Francis Sage [facility] on 06/28/24 14:24 UA Urobilinogen 0.2 mg/dL Last Edit by Francis Sage [facility] on 06/28/24 14:24 UA Protein 0 mg/dL Last Edit by Francis Sage [facility] on 06/28/24 14:24 UA pH 6.0 Last Edit by Francis Sage [facility] on 06/28/24 14:24 UA Blood 0 David/uL Last Edit by Francis Sage [facility] on 06/28/24 14:24 UA Specific [place]utter 1.010 Last Edit by Francis Sage [facility] on 06/28/24 14:24 UA Ketone Negative Last Edit by Francis Sage [facility] on 06/28/24 14:24 UA Bilirubin 0 mg/dL Last Edit by Francis Sage [facility] on 06/28/24 14:24 UA Glucose 0 mg/dL Last Edit by Francis Sage [facility] on 06/28/24 14:24 Results Reviewed Results Reviewed: Laboratory Last Values Urine pH (Auto) 6.0 06/28/24 14:23 Specific Sutter (Auto) 1.010 06/28/24 14:23 Urine Protein (Auto) 0 mg/dL 06/28/24 14:23 Glucose (UA)(Auto) 0 mg/dL 06/28/24 14:23 Urine Ketones (Auto) Negative 06/28/24 14:23 Urine Blood (Auto) 0 David/uL 06/28/24 14:23 Urine Nitrite (Auto) Negative 06/28/24 14:23 Urine Bilirubin (Auto) 0 mg/dL 06/28/24 14:23 Urine Urobilinogen (Auto) 0.2 mg/dL 06/28/24 14:23 Leukocyte Esterase (Auto) 0 Rosa/uL 06/28/24 14:23 Coding Level of Care Code Est Pt Level 4 (15732) Complex EM visit Add On G2211 Diagnoses Intracranial hemorrhage I62.9 Coronary artery disease involving [place] coronary artery of [place] heart without angina pectoris I25.10 Associated angina: without angina [place] vs. 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 L sided weakness Code(s): I62.9 - Nontraumatic intracranial hemorrhage, unspecified Category: Medical Plan: Continuing to monitor blood pressure and keep under control (2) CAD (coronary artery disease): Comment: Cardiac catheterization October 2021 nonobstructive Code(s): I25.10 - Atherosclerotic heart disease of [place] coronary artery without angina pectoris Category: Medical Qualifiers: Associated angina: without angina [place] vs. transplanted heart: [place] heart Coronary Disease-Associated Artery/Lesion type: [place] artery Qualified Code(s): I25.10 - Atherosclerotic heart disease of [place] coronary artery without angina pectoris Plan: Control the cholesterol, weight, blood pressure, (3) Hypercholesterolemia: Code(s): E78.00 - Pure hypercholesterolemia, unspecified Category: Medical Plan: Avoid fried foods, chicken skin, eggs, butter margarine, pastries and meat. Be it pork or beef they have a lot of cholesterol discussed about lowering down the cholesterol. On pravastatin. Will recheck cholesterol 1st. (4) Hypertension: Code(s): I10 - Essential (primary) hypertension Category: Medical Qualifiers: Hypertension type: unspecified Qualified Code(s): I10 - Essential (primary) hypertension Plan: Continue with blood pressure medication. Decrease salt intake and exercise on metoprolol 50 mg once a day lisinopril 40 mg once a day and furosemide. Discussed that if the blood pressure gets to be too low like systolic blood pressure of less than 100 and will hold lisinopril. (5) Impaired glucose tolerance: Code(s): R73.02 - Impaired glucose tolerance (oral) Category: Medical Plan: Decrease the amount of carbohydrate intake, pasta, bread, rice and potatoes are all sugar and that is aside from all the sweet stuff, remember that fruits are good but they are Sweet also. (6) GERD (gastroesophageal reflux disease): Code(s): K21.9 - Gastro-esophageal reflux disease without esophagitis Category: Medical Qualifiers: Esophagitis presence: without esophagitis Qualified Code(s): K21.9 - Gastro-esophageal reflux disease without esophagitis Plan: Avoid the foods that causes that usually spicy foods, tomato products, juices, coffee, soda and foods that your sensitive to. After eating do not lie down, allow 3-4 hours before in lie down. And keep the head of bed above 30 degrees to avoid the acid from going up. (7) Anemia: Code(s): D64.9 - Anemia, unspecified Category: Medical Qualifiers: Anemia type: due to chronic kidney disease Chronic kidney disease stage: stage 3 (moderate) Chronic kidney disease stage 3 subtype: stage 3a (GFR 45-59) Qualified Code(s): N18.31 - Chronic kidney disease, stage 3a; D63.1 - Anemia in chronic kidney disease Plan: Stable (8) Dysuria: Code(s): R30.0 - Dysuria Category: Medical Plan: Urinalysis requested and is negative Orders: Orders AMB Urinalysis Automated Today Lucas Moore MD R30.0 - Dysuria, Z13.9 - Encounter for screening, unspecified Hemoglobin A1c Today Lucas Moore MD R73.02 - Impaired glucose tolerance (oral) Lipid Panel Today Lucas Moore MD E78.00 - Pure hypercholesterolemia, unspecified Comprehensive Met. Panel Today Lucas Moore MD R73.02 - Impaired glucose tolerance (oral) Complete Blood Count Auto Diff Today Lucas Moore MD R73.02 - Impaired glucose tolerance (oral) Medications: Changed From hydroxyzine HCl 1/2 tab AM, 1/2 tab 5 pm and 2 tabs bedtime 270 tabs 0RF itching L29.9 - Pruritus, unspecified To hydroxyzine HCl 1-2 tabs bedtime itching L29.9 - Pruritus, unspecified Bonnie Cárdenas PA-C From lisinopril 40 mg PO DAILY 90 tabs 2RF I10 - Essential (primary) hypertension To lisinopril if BP low may hold SBP < 100) 40 mg PO DAILY 90 tabs 2RF I10 - Essential (primary) hypertension Lucas Moore MD
[2024-06-28 13:21] VITALS: BP 128/60; PULSE 77; O2SAT 98; BMI 24.0
== END 2024-06-28 14:20 | disposition home or self-care (01) ==
PROVIDERS: PCP Internal Medicine; Visit Provider Internal Medicine
DX: I62.9 Nontraumatic intracranial hemorrhage, unspecified (principal); I12.9 Hypertensive chronic kidney disease with stage 1 through stage 4 chronic kidney disease, or unspecified chronic kidney disease; N18.31 Chronic kidney disease, stage 3a; R30.0 Dysuria; I25.10 Atherosclerotic heart disease of native coronary artery without angina pectoris; E78.00 Pure hypercholesterolemia, unspecified; R73.02 Impaired glucose tolerance (oral); K21.9 Gastro-esophageal reflux disease without esophagitis; D63.1 Anemia in chronic kidney disease

== ENCOUNTER → 2024-06-28 13:05 | Outpatient (BNVA) | payer MEDICARE, SELFPAY | PROVIDERS: PCP Internal Medicine; Visit Provider Internal Medicine | DX: E78.00 Pure hypercholesterolemia, unspecified (principal); K21.9 Gastro-esophageal reflux disease without esophagitis; I69.354 Hemiplegia and hemiparesis following cerebral infarction affecting left non-dominant side; I62.9 Nontraumatic intracranial hemorrhage, unspecified; I25.10 Atherosclerotic heart disease of native coronary artery without angina pectoris; R73.02 Impaired glucose tolerance (oral); I12.9 Hypertensive chronic kidney disease with stage 1 through stage 4 chronic kidney disease, or unspecified chronic kidney disease; N18.31 Chronic kidney disease, stage 3a; D63.1 Anemia in chronic kidney disease; R30.0 Dysuria; L29.9 Pruritus, unspecified | CPT/HCPCS: 81003; 99212 ==

== ENCOUNTER 2024-07-20 08:59 | Outpatient (REF) | payer MEDICARE, SELFPAY ==
[2024-07-20 11:34] LABS: MANUAL DIFF FLAG NO
[2024-07-20 11:51] LABS: Basophils Absolute Auto 0.1 X10*3/uL (0.0-0.2); Basophils Percent Auto 1.3 % (0-2); Eosinophils Absolute Auto 0.4 X10*3/uL (0.0-0.4); Eosinophils Percent Auto 6.4 % (0-4); Hematocrit 37.3 % (37.0-47.0); Hemoglobin 11.9 g/dl (12.0-16.0); Imm Gran Abs Auto 0.01 X10*3/uL (0.00-0.03); Imm Gran Pct Auto 0.2 % (0.0-0.4); Lymphocytes Absolute Auto 1.4 X10*3/uL (1.2-4.9); Lymphocytes Percent Auto 25.4 % (20-40); Mean Corpuscular HGB Conc 31.9 g/dl (31.0-35.0); Mean Corpuscular Hemoglobin 30.5 pg (27.0-33.0); Mean Corpuscular Volume 95.6 fL (80.0-98.0); Mean Platelet Volume 10.9 fL (9.4-12.3); Monocytes Absolute Auto 0.5 X10*3/uL (0.1-1.2); Monocytes Percent Auto 9.2 % (2-11); Neutrophils Absolute Auto 3.1 x10*3/uL (2.0-8.3); Neutrophils Percent Auto 57.5 % (45-73); Platelet Count 354 X10*3/uL (160-400); Red Cell Distribution Width 14.6 % (11.0-16.0); White Blood Count 5.4 X10*3/uL (4.8-10.8)
[2024-07-20 11:58] LABS: Estimated Average Glucose 120 mg/dL; Hemoglobin A1C 123.8579 umol/L; Hemoglobin A1c % 5.8 % (<6.0); Total Hemoglobin (HGBA1C) 3097.1881 umol/L
[2024-07-20 12:34] LABS: Alanine Aminotransferase 13 U/L (0-31); Albumin Level 3.9 g/dL (3.5-5.0); Alkaline Phosphatase 75 U/L (39-117); Anion Gap 12 (12-20); Aspartate Amino Transferase 31 U/L (5-31); Bilirubin Total 0.3 mg/dL (0.0-1.0); Blood Urea Nitrogen 27 mg/dL (9-16); Calcium 8.9 mg/dL (8.4-10.2); Carbon Dioxide 29 mmol/L (22-29); Chloride 107 mmol/L (96-108); Cholesterol 231 mg/dL (<200); Estimated Glomerular Filt Rate 43; Glucose Random 88 mg/dL (60-115); HDL Cholesterol 50 mg/dL (>40); LDL Cholesterol Calculated 145 mg/dL (<100); Potassium 4.1 mmol/L (3.3-5.1); Sodium 144 mmol/L (135-145); Total Protein 7.4 g/dL (6.5-8.0); Triglycerides 184 mg/dL (<150)
== END 2024-07-20 09:00 | disposition home or self-care (01) ==
LOC: HO.WFDLDS 08:59
PROVIDERS: Visit Provider Internal Medicine
DX: E78.00 Pure hypercholesterolemia, unspecified (principal); R73.02 Impaired glucose tolerance (oral)
CPT/HCPCS: 36415; 80053; 80061; 83036; 85025

== ENCOUNTER 2024-10-01 13:31 | Outpatient (AMB) | payer MEDICARE, SELFPAY ==
[2024-10-01 13:38] VITALS: BP 122/56; PULSE 68; TEMP 36.1; O2SAT 98; BMI 23.9
--- NOTE | 2024-10-01 13:38 | A.OFFPC_ITS ---
Vital Signs 10/01/24 13:38 Height 5 ft 6 in Weight 147 lb 14.883 oz BMI 23.9 BP 122/56 L Blood Pressure Location Rt brachial Position Sitting Pulse 68 Pulse Source Pulse Oximeter Temp 96.9 F Temp Source Temporal Artery Scan Pulse Oximetry (%) 98 Oxygen Delivery Method Room Air Intake Visit Reasons: HTN, CVA Reel Blade Bender Furnace Tender Required: No Accompanied by: Spouse Allergies Penicillins [PENICILLINS] Allergy (Severe, Verified 10/01/24 13:49) THROAT SWELLS Iodinated Contrast Media Allergy (Intermediate, Verified 10/01/24 13:49) Rash penicillin V Allergy (Unknown, Verified 10/01/24 13:49) Throat Swells carvedilol Adverse Reaction (Intermediate, Verified 10/01/24 13:49) rash cyclosporine Adverse Reaction (Intermediate, Verified 10/01/24 13:49) hypertensive Tobacco use date assessed: 10/01/24 Fall risk assessment: No Falls in past year Last assessed Fall Risk: 10/01/24 Dental Screening Dental Screen Date: 10/01/24 Did you have a dental visit in the last 12 months?: No Did you have a dental problem in the last 6 months where you did not have access to dental care?: No Was dental information given to patient?: No PFSH Medical History (Updated 06/28/24 @ 17:30 by Lucas Moore MD) Left leg swelling Rash CAD (coronary artery disease) Abnormal cardiac function test SOB (shortness of breath) on exertion Adult general medical exam Post-menopausal GERD (gastroesophageal reflux disease) Insomnia Hypertension Hypercholesterolemia Surgical History History of cardiac cath History of colonoscopy No pertinent past surgical history Family History Father Heart disease Prostate cancer Colon cancer CVD (cardiovascular disease) Diabetes Mother Ovarian cancer Gout Sister Ovarian cancer Social History Housing: House Alcohol intake: current Alcohol intake frequency: holidays/special occasions only Patient Tobacco Use Status: Former Tobacco user Years Smoked: 30 +/- e-Cigarette/Vaping Use: Never Used Second Hand Smoke Exposure: No service: No Current occupational status: retired Cognitive needs: Yes Hearing needs: No Vision needs: Yes Questionnaire PHQ-9 Over the last 2 weeks, how often have you been bothered by any of the following problems? 1. Little interest or pleasure in doing things: not at all 2. Feeling down, depressed, or hopeless: not at all 3. Trouble falling or staying asleep, or sleeping too much: not at all 4. Feeling tired or having little energy: not at all 5. Poor appetite or overeating: not at all 6. Feeling bad about yourself - or that you are a failure or have let yourself or your family down: not at all 7. Trouble concentrating on things, such as reading the newspaper or watching television: not at all 8. Moving or speaking so slowly that other people could have noticed. Or the opposite - being so fidgety or restless that you have been moving around a lot more than usual: not at all 9. Thoughts that you would be better off or of hurting yourself in some way: not at all Total score: 0 Depression Screening Interpretation: Negative Depression Screening Done: Yes 66854 - PHQ-9 Billing: Yes Source: Developed by Drs. Doug Boone, Rachelle Calvo, Eran Weller and colleagues, with an educational juliet from [employer]. Thrive Questionnaire Date Thrive assessed: 10/01/24 I am a: Patient What is your living situation today?: I have a steady place to live Within the past 12 months, did the food you bought not last and you didn't have the money to get more?: Never true Within the past 12 months, did you worry whether your food would run out before you got money to buy more?: Never true Do you have trouble paying for medicines?: No Do you have trouble getting transportation to medical appointments?: No Do you have trouble paying your heating and electricity bill?: No Do you have trouble taking care of your child, family member or friend?: No Do you have trouble with day-to-day activities such as bathing, preparing meals, shopping, managing finances, etc.?: No Are you currently unemployed and looking for a job?: No Are you interested in more education?: No Please select the resources that you would like help with: None Currently or been in a relationship where the following occur: No concerns reported THRIVE Score: 0 AUDIT C Alcohol Use Questionnaire (AUDIT-C) 1. How often do you have a drink containing alcohol?: Monthly or less 2. How many drinks containing alcohol do you have on a typical day when you are drinking?: 1 or 2 3. How often do you have six or more drinks on one occasion?: Never Total Score: 1 ROSIE-7 AMB Questionnaire ROSIE-7 Date ROSIE - 7 assessed: 10/01/24 Feeling nervous, anxious, or on edge: 0 = Not at all Not being able to stop or control worryin = Not at all Worrying too much about different things: 0 = Not at all Trouble relaxin = Not at all Being so restless that it is hard to sit still: 0 = Not at all Becoming easily annoyed or irritable: 0 = Not at all Feeling afraid as if something awful might happen: 0 = Not at all Total ROSIE-7 score (0-4 normal; 5-9 mild; 10-14 moderate; 15-21 severe): 0 Source: Developed by Drs. Doug Boone, Rachelle Calvo, Eran Weller and colleagues, with an educational juliet from [employer]. ROSIE-7 Assessment Billing ROSIE-7 Assessment Tool: ROSIE-7 Assessment 72471 Physical exam (Primary Care) Vital Signs: Oxygen Delivery Method Room Air 10/01/24 13:38 BMI result Body Mass Index 23.9 Tobacco/Smoking Status: Tobacco use Status Tobacco use date assessed 09/19/23 10/01/24 13:38 Patient Tobacco Use Status Former Tobacco user 10/01/24 13:38 e-Cigarette/Vaping Use Never Used 10/01/24 13:38 Depression Screening Interpretation: Negative Thrive Assessment: Date of Thrive Assessment Date Thrive assessed 05/04/24 10/01/24 13:38 Currently or been in a relationship where the following occur: No concerns reported Const General: alert; No acute distress Eyes Conjunctivae: conjunctivae normal Resp Auscultation: clear to auscultation bilaterally Cardio Rate: regular rate Rhythm: regular rhythm GI Inspection: Yes normal to inspection Neuro Other: Extraocular muscles normal, nasolabial folds present on both right shoulder shrug is 5/5 while left shoulder shrug is 4/5 left arm weakness 3/5, can not open the left hand straight but has some closing ability 3/5, left lower extremity 4/5, right lower extremity 5/5 can dorsiflex Extrem General: Yes normal to inspection and No edema Coding Level of Care Code Est Pt Level 4 (70918) Complex EM visit Add On G2211 Diagnoses Hypertension, unspecified type I10 Hypertension type: unspecified Hypercholesterolemia E78.00 Impaired glucose tolerance R73.02 Gastroesophageal reflux disease without esophagitis K21.9 Esophagitis presence: without esophagitis National Institutes of Health (NIH) Stroke Scale best language score 1, mild to moderate aphasia, some loss of fluency, reduction of speech and/or comprehension, makes conversation about provided material difficult or impossible Z78.9 Additional Codes ROSIE-7 Assessment Billing - ROSIE-7 Assessment Tool: ROSIE-7 Assessment 09533 ([id number]) PHQ-9 - 97837 - PHQ-9 Billing: Yes ([id number]) Assessment & Plan Assessment & Plan (1) Hypertension: Code(s): I10 - Essential (primary) hypertension Category: Medical Qualifiers: Hypertension type: unspecified Qualified Code(s): I10 - Essential (primary) hypertension Plan: Continue with blood pressure medication. Decrease salt intake and exercise patient on metoprolol 50 mg once a day lisinopril 40 mg once a day (2) Hypercholesterolemia: Code(s): E78.00 - Pure hypercholesterolemia, unspecified Category: Medical Plan: Avoid fried foods, chicken skin, eggs, butter margarine, pastries and meat. Be it pork or beef they have a lot of cholesterol LDL goal of less than 70 and trig lyceride of less than 150 (3) Impaired glucose tolerance: Code(s): R73.02 - Impaired glucose tolerance (oral) Category: Medical Plan: Decrease the amount of carbohydrate intake, pasta, bread, rice and potatoes are all sugar and that is aside from all the sweet stuff, remember that fruits are good but they are Sweet also. Hemoglobin A1c was 5.8 (4) GERD (gastroesophageal reflux disease): Code(s): K21.9 - Gastro-esophageal reflux disease without esophagitis Category: Medical Qualifiers: Esophagitis presence: without esophagitis Qualified Code(s): K21.9 - Gastro-esophageal reflux disease without esophagitis Plan: Avoid the foods that causes that usually spicy foods, tomato products, juices, coffee, soda and foods that your sensitive to. After eating do not lie down, allow 3-4 hours before in lie down. And keep the head of bed above 30 degrees to avoid the acid from going up. (5) National Institutes of Health (NIH) Stroke Scale best language score 1, mild to moderate aphasia, some loss of fluency, reduction of speech and/or comprehension, makes conversation about provided material difficult or impossible: Code(s): Z78.9 - Other specified health status Category: Medical Plan: Control the cholesterol, weight, blood pressure, patient is on Xarelto 20 mg once a day Plan History of Present Illness The patient is an 83-year-old female presenting for a follow-up concerning her chronic medical conditions, including hypercholesterolemia, hypertension, and coronary artery disease. Her cholesterol levels remain elevated despite being on pravastatin 20 mg. Latest blood work showed stable renal function with a mild anemia. 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 Current medications include metop rolol, lisinopril, pravastatin, and Xarelto. She maintains some physical activity at home and engages in weekly physical therapy and occupational therapy sessions. Health Maintenance - Annual blood work monitoring, including complete blood count (CBC), renal function tests, and lipid profile. - Regular monitoring of blood pressure at home. - Evaluation and adjustment of cholesterol management to achieve target LDL < 70 mg/dL and triglycerides < 150 mg/dL. - Dietary recommendations to reduce cholesterol intake, avoid prepared foods high in sodium. - Encouragement of adequate hydration, given the patient's use of diuretics and elevated BUN. - Continuous engagement in physical rehabilitation for post-stroke recovery. Social History - Lives at home with assistance from caregivers. - Engages in weekly physical and occupational therapy sessions. - Limited dietary intake with a predilection for prepared and frozen foods. - Decreased overall food intake reported. - Reports decreased physical activity; walks with a walker at home and performs simple hand exercises. Review of Systems - Cardiovascular: Reports adequate control of hypertension with home blood pressure readings around 120 mmHg systolic. - Neurological: Denies any recent physician consultations; mild to moderate aphasia persists. - Musculoskeletal: Engages in exercise for post-stroke rehabilitation; left- sided weakness noted. - Gastrointestinal: Anemia noted on blood work, unchanged dietary intake reported. - Genitourinary: Occasional nighttime incontinence if left unattended, otherwise continent. Physical Exam - Cardiovascular- Blood pressure at home generally around 120/80 mmHg. - Neurological- Left-sided weakness noted, eyes and muscular reflexes within expected ranges. - Musculoskeletal- Utilizes a walker for ambulation, performs hand exercises at home with assistive machine. Results - Labs: Mild anemia (hemoglobin 11.9), stable renal function, normal electrolytes, hemoglobin A1c 5.8, LDL 145, triglycerides 184, HDL 50. Plan I will increase the patient?s pravastatin dosage to manage her hypercholesterolemia and schedule follow-up testing in three months. Current blood pressure management will continue unchanged. I advised increasing water intake to address elevated BUN and to avoid NSAIDs due to potential renal risks. The patient will continue with her current physical activity and therapy regimen. Dietary recommendations, including reducing sodium and cholesterol intake, were emphasized to support overall health management. Patient was informed and verbally consented to the use of an ambient scribe for clinic note documentation during this visit. Discussion Notes I discussed the importance of increasing pravastatin to 40 mg nightly to address the elevated LDL cholesterol levels, due to its weak efficacy at the current dosage, and the plan to repeat lipid testing in three months. We also reviewed maintaining the current antihypertensive regimen with metoprolol and lisinopril, as home blood pressure readings are satisfactory. I highlighted the avoidance of NSAIDs to prevent renal impairment and recommended increasing water intake since the patient is on diuretics. We discussed dietary adjustments, emphasizing the reduction of sodium and cholesterol intake and avoiding high-sodium prepared foods. I encouraged ongoing physical, occupational therapy, and home exercises to facilitate recovery from prior cerebrovascular events. Follow-up care includes monitoring for signs of increased weakness or any skin complications due to immobility. Patient Instructions - Increase pravastatin to 40 mg nightly; take two of the current tablets if only 20 mg available. - Ensure proper hydration and increase water intake daily. - Continue monitoring and maintaining current blood pressure levels. - Engage in physical activity as tolerated and attend therapy sessions regularly. - Avoid use of NSAIDs; opt for Tylenol for pain relief. - Follow dietary recommendations to lower cholesterol and sodium intake. - Schedule follow-up blood work in three months to re-evaluate cholesterol levels. - Caregivers to perform regular skin checks to avoid issues from prolonged sitting. - Seek care if you experience increased weakness or any significant changes in health status. Orders: Orders Free T4 (Free Thyroxine) Today E78.00 - Pure hypercholesterolemia, unspecified Thyroid Stimulating Hormone Today E78.00 - Pure hypercholesterolemia, unspeci fied Lipid Panel Today E78.00 - Pure hypercholesterolemia, unspecified Complete Blood Count Auto Diff Today E78.00 - Pure hypercholesterolemia, un specified Comprehensive Met. Panel Today E78.00 - Pure hypercholesterolemia, unspecified Vitamin B12 and Folate Today E78.00 - Pure hypercholesterolemia, unspecified Vitamin D 25-OH Total Today E78.00 - Pure hypercholesterolemia, unspecified Hemoglobin A1c Today E78.00 - Pure hypercholesterolemia, unspecified Medications: Changed From pravastatin 20 mg PO BEDTIME 90 tabs 3RF I25.10 - Atherosclerotic heart disease of [place] coronary artery without angina pectoris To pravastatin 40 mg PO BEDTIME 90 tabs 3RF I25.10 - Atherosclerotic heart disease of [place] coronary artery without angina pectoris
== END 2024-10-01 14:11 | disposition home or self-care (01) ==
LOC: HO.HMCH 13:32
PROVIDERS: PCP Internal Medicine; Visit Provider Internal Medicine
DX: I10 Essential (primary) hypertension (principal); E78.00 Pure hypercholesterolemia, unspecified; R73.02 Impaired glucose tolerance (oral); K21.9 Gastro-esophageal reflux disease without esophagitis; Z78.9 Other specified health status

== ENCOUNTER → 2024-10-01 13:31 | Outpatient (BNVA) | payer MEDICARE, SELFPAY | PROVIDERS: PCP Internal Medicine; Visit Provider Internal Medicine | DX: I10 Essential (primary) hypertension (principal); E78.00 Pure hypercholesterolemia, unspecified; R73.02 Impaired glucose tolerance (oral); K21.9 Gastro-esophageal reflux disease without esophagitis; Z78.9 Other specified health status | CPT/HCPCS: 96127; 99212 ==

== ENCOUNTER 2024-10-10 09:10 | Outpatient (REF) | payer MEDICARE, SELFPAY ==
--- OUTSIDE RECORDS SUMMARY | 2024-10-10 10:03 | XMS_ITS | Clinical Summary ---
Author Organization [facility] Address [address] [address] Phone Care Team Providers Care Nut Grader Name Role Phone Lucas Moore MD Primary Care Provider [phone] Allergies Active Allergy Reactions Criticality Noted Date Comments Iodine 08/16/2022 Penicillin G 08/16/2022 Medications baclofen (LIORESAL) 10 MG tablet Take 10 mg by mouth in the morning and 10 mg in the evening and 10 mg before bedtime. Active lisinopril 40 MG tablet Take 40 mg by mouth 1 (one) time each day Active mirtazapine (REMERON) 15 MG tablet Take 15 mg by mouth every night Active traZODone (DESYREL) 50 MG tablet Take 50 mg by mouth every night Active acetaminophen (TYLENOL) 325 MG tablet Take 325 mg by mouth every 6 (six) hours if needed for mild pain Active rivaroxaban (Xarelto) 20 MG tablet Take 20 mg by mouth 1 (one) time each day with dinner Active pravastatin (PRAVACHOL) 10 MG tablet Take 10 mg by mouth 1 (one) time each day Active Cholecalciferol (Vitamin D) 25 MCG (1000 UT) tablet Take 1 tablet by mouth 1 (one) time each day Active Multiple Vitamins-Mineral s (PreserVision AREDS 2) capsule Take 1 tablet by mouth 1 (one) time each day Active furosemide (LASIX) 20 MG tablet 2 tabs in am and 1 in afternoon at 3 pm 90 tablet 11 4 Active metoprolol succinate XL (Toprol XL) 50 MG 24 hr tabletIndication s:Essential (primary) hypertension Take 1 tablet (50 mg total) by mouth 1 (one) time each day Do not crush or chew. 90 tablet 3 5 09/18/19 26 Active metoprolol succinate XL (Toprol XL) 50 MG 24 hr tabletIndication s:Essential (primary) hypertension Take 1 tablet (50 mg total) by mouth 1 (one) time each day Do not crush or chew. 90 tablet 3 4 09/18/19 25 Discontin ued(Reord er (does not appear on AVS)) Active Problems Problem Noted Date Diagnosed Date Anemia in chronic kidney disease 04/09/2024 Bilateral lower leg edema 04/09/2024 Hypertension 04/06/2023 Edema 02/21/2023 Stage 3a chronic kidney disease 02/21/2023 Hypertensive urgency 09/06/2022 Underweight 09/06/2022 Acute nontraumatic kidney injury 08/18/2022 Cardiac function test abnormal 08/12/2022 Coronary arteriosclerosis 08/12/2022 Hypercholesterolemia 08/12/2022 Gastroesophageal reflux disease 08/12/2022 Essential (primary) hypertension 08/12/2022 Insomnia 08/12/2022 Encounters Date Type Department Care Team Description 09/17/2024 Refill [facility] [address] [id number] Carlene Winter MA Essential (primary) hypertension 09/08/2024 Orders Only [facility] [address] [phone] Cindy Benito ARNP Stage 3a chronic kidney disease (HCC); Hypertension; Bilateral lower leg edema; Anemia in chronic kidney disease from Last 3 Months Immunizations Name Administration Dates Next Due Pfizer SARS-COV-2 05/05/2021,09/05/2020,08/15/19 21 Family History Medical History Relation Comments Diabetes Father Heart disease Father Prostate cancer Father Gout Mother Ovarian cancer Mother Ovarian cancer Sister Relation Status Comments Father Mother Sister Social History Tobacco Use Types Packs/Day Years Used Date Smoking Tobacco: Former Cigarettes Smokeless Tobacco: Never Alcohol Use Standard Drinks/Week Comments Yes 0 (1 standard drink = 0.6 oz pur e alcohol) Comments Unknown Sex and Gender Information Value Date Recorded Sex Assigned at Not on file Legal Sex Female 10:50 AM EST Gender Identity Not on file Sexual Orientation Not on file Last Filed Vital Signs Vital Sign Reading Time Taken Comments Blood Pressure 128/70 04/09/2024 2:38 PM EDT Pulse 68 04/09/2024 2:38 PM EDT Temperature - - Respiratory Rate - - Oxygen Saturation 99% 10/20/2022 11:57 AM EDT Inhaled Oxygen Concentration - - Weight 68 kg (150 lb) 04/09/2024 2:38 PM EDT Height - - Body Mass Index - - Plan of Treatment Health Maintenance Due Date Last Done Comments Pneumococcal Vaccine: 65+ Ye ars (1 of 2 - PCV) 1946 Influenza Vaccine (Season Ended) 2025 Hepatitis B Vaccine Aged Out No longe r eligible based on patient's age to complete this topic Insurance MEDICARE [facility] MEDICARE [facility] Care Teams Nut Grader Relationship Specialty Start Date End Date Lucas Moore MD [address] [place], [place] PCP - General Internal Medicine 07/27/22
--- OUTSIDE RECORDS SUMMARY | 2024-10-10 10:03 | XMS_ITS | Encounter Summary ---
Author Organization [facility] Address [address] [place] [address] Phone Care Team Providers Care Retail Greeter Name Role Phone Lucas Moore MD Primary Care Provider [phone] Encounter Details Date Type Department Care Team (Late st Contact Info) Description 09/01/2022 Documentation Only [facility] [address] [place] [id number] [place], [place] Social History Tobacco Use Types Packs/Day Years Used Date Smoking Tobacco: Former Cigarettes Smokeless Tobacco: Never Alcohol Use Standard Drinks/Week Comments Yes 0 (1 standard drink = 0.6 oz pur e alcohol) Comments Unknown Sex and Gender Information Value Date Recorded Sex Assigned at Not on file Legal Sex Female 10:50 AM EST Gender Identity Not on file Sexual Orientation Not on file documented as of this encounter Plan of Treatment Not on file documented as of this encounter Visit Diagnoses Not on filedocumented in this encounter Care Teams Retail Greeter Relationship Specialty Start Date End Date Lucas Moore [facility] [place] [address] [place], [place] PCP - General Internal Medicine 07/27/22 documented as of this encounter
--- OUTSIDE RECORDS SUMMARY | 2024-10-10 10:03 | XMS_ITS | Clinical Summary ---
Author Organization [facility] Address [address] [place] [address] Care Team Providers Care Concrete Craftsman Name Role Phone Unavailable Primary Care Provider Unavailabl e Social History Tobacco Use Types Packs/Day Years Used Date Smoking Tobacco: Never Assessed Comments Unknown Sex and Gender Information Value Date Recorded Sex Assigned at Not on file Legal Sex Female 3:33 AM EDT Gender Identity Not on file Sexual Orientation Not on file Plan of Treatment Health Maintenance Due Date Last Done Comments DTaP/Tdap/Td (1 - Tdap) 1958 Pneumococcal 50+ years (1 of 1 - PCV) 1990 Zoster (Shingrix) (1 of 2) 1990 Bone Density 2005 RSV (1 - 1-dose 75+ series) 10/13/2015 COVID-19 Vaccine (2023-2 5 season) 2024 Influenza (#1) 2024 HPV Vaccine Aged Out No longer eligi ble based on patient's age to complete this topic Hep A Aged Out No longer eligi ble based on patient's age to complete this topic Hep B Aged Out No longer eligi ble based on patient's age to complete this topic Hib Aged Out No longer eligi ble based on patient's age to complete this topic Mammogram/Breast Imaging Discontinued Meningococcal ACWY Aged Out No longer eligible based on patient's age to complete this topic Pap Smear Discontinued Zoster (Zostavax) Discontinued
[2024-10-10 11:18] LABS: MANUAL DIFF FLAG NO
[2024-10-10 11:32] LABS: Basophils Absolute Auto 0.1 X10*3/uL (0.0-0.2); Eosinophils Absolute Auto 0.3 X10*3/uL (0.0-0.4); Eosinophils Percent Auto 3.5 % (0-4); Hematocrit 35.1 % (37.0-47.0); Hemoglobin 11.2 g/dl (12.0-16.0); Imm Gran Abs Auto 0.04 X10*3/uL (0.00-0.03); Imm Gran Pct Auto 0.5 % (0.0-0.4); Lymphocytes Absolute Auto 1.4 X10*3/uL (1.2-4.9); Lymphocytes Percent Auto 17.3 % (20-40); Mean Corpuscular HGB Conc 31.9 g/dl (31.0-35.0); Mean Corpuscular Hemoglobin 29.9 pg (27.0-33.0); Mean Corpuscular Volume 93.9 fL (80.0-98.0); Mean Platelet Volume 9.8 fL (9.4-12.3); Monocytes Absolute Auto 0.8 X10*3/uL (0.1-1.2); Monocytes Percent Auto 10.1 % (2-11); Neutrophils Absolute Auto 5.3 x10*3/uL (2.0-8.3); Neutrophils Percent Auto 67.6 % (45-73); Platelet Count 397 X10*3/uL (160-400); Red Blood Count 3.74 X10*6/uL (4.20-5.50); Red Cell Distribution Width 13.6 % (11.0-16.0); White Blood Count 7.8 X10*3/uL (4.8-10.8)
[2024-10-10 11:50] LABS: Alanine Aminotransferase 42 U/L (0-31); Alkaline Phosphatase 114 U/L (39-117); Anion Gap 16 (12-20); Aspartate Amino Transferase 93 U/L (5-31); Bilirubin Total 0.4 mg/dL (0.0-1.0); Blood Urea Nitrogen 60 mg/dL (9-16); Calcium 9.2 mg/dL (8.4-10.2); Carbon Dioxide 22 mmol/L (22-29); Chloride 104 mmol/L (96-108); Cholesterol 181 mg/dL (<200); Estimated Glomerular Filt Rate 18; Glucose Random 96 mg/dL (60-115); HDL Cholesterol 54 mg/dL (>40); LDL Cholesterol Calculated 96 mg/dL (<100); Potassium 4.3 mmol/L (3.3-5.1); Sodium 138 mmol/L (135-145); Total Protein 7.7 g/dL (6.5-8.0); Triglycerides 155 mg/dL (<150)
[2024-10-10 11:51] LABS: Estimated Average Glucose 126 mg/dL; Hemoglobin A1C 124.6742 umol/L
[2024-10-10 12:07] LABS: Free T4 (Free Thyroxine) 1.21 ng/dL (0.71-1.85); Vitamin D 25-OH Total 77.1 ng/mL (>30)
[2024-10-10 12:19] LABS: Folate 6.1 ng/mL (> or = 4.0); Vitamin B12 317 pg/mL (200-900)
== END 2024-10-10 09:11 | disposition home or self-care (01) ==
LOC: HO.WFDLDS 09:10
PROVIDERS: Visit Provider Internal Medicine
DX: E78.00 Pure hypercholesterolemia, unspecified (principal); I25.10 Atherosclerotic heart disease of native coronary artery without angina pectoris
CPT/HCPCS: 36415; 80053; 80061; 82306; 82607; 82746; 83036; 84439; 84443; 85025

== ENCOUNTER 2024-10-26 | Outpatient (REF) | payer MEDICARE, SELFPAY ==
--- OUTSIDE RECORDS SUMMARY | 2024-10-29 07:13 | XMS_ITS | Clinical Summary ---
Author Organization [facility] Address [address] [facility] [address] [place] [address] Phone Care Team Providers Care Jewel Corner Brushing Machine Operator Name Role Phone Lucas Moore MD Primary Care Provider [phone] Allergies Active Allergy Reactions Criticality Noted Date [...] mouth 1 (one) time each day Active metoprolol succinate XL (Toprol XL) 50 MG 24 hr tabletIndication s:Essential (primary) hypertension Take 1 tablet (50 mg total) by mouth 1 (one) time each day Do not crush or chew. 90 tablet 3 09/18/19 25 026 Active furosemide (LASIX) 20 MG tabletIndication s:Edema Take 20 mg by mouth in the morning and 20 mg in the evening. Active furosemide (LASIX) 20 MG tablet 2 tabs in am and 1 in afternoon at 3 pm 90 tablet 11 04/27/20 24 025 Discontinued (Discontinue d by another clinician (does not appear on AVS)) Active Problems [...] Encounters Date Type Department Care Team Description 10/11/2024 Documentation Only [facility]. [address] [phone] Korin Leija 09/17/2024 Refill [facility]. [address] [phone] Carlene Winter [place] Essential (primary) hypertension 09/08/2024 Orders Only [facility]. [address] [phone] Cindy Benito ARNP Stage 3a chronic kidney disease (HCC); Hypertension; Bilateral lower leg edema; Anemia in chronic kidney disease from Last 3 Months Immunizations Immunization Administration Dates Next Due Pfizer SARS-COV-2 05/05/2021,09/05/2020,08/15/19 [...] Mass Index - - Plan of Treatment Upcoming Encounters Date Type Department Care Team (Late st Contact Info) Description 11/21/2024 3:15 PM EDT [facility] [address] [phone] Cindy Benito ARNP [address] [phone] Health Maintenance Due Date Last Done Comments Pneumococcal Vaccine: 50+ Ye ars (1 of 2 - PCV) 10/13/1959 Influenza Vaccine (Season Ended) 2025 Hepatitis B Vaccine Aged Out No longe r eligible based on patient's age to complete this topic Procedures Procedure Name Priority Date/Time Associated Diagnosis Comments EXT RESULT ENTRY Routine 10/10/2024 from Last 3 Months Results * (ABNORMAL) EXT RESULT ENTRY (10/10/2024) WBC 7.8 3.3 - 10.0 10*3/ML Red Blood Cell Count 3.74 Hemoglobin 11.2(A) 12.0 - 16.0 Hematocrit 35.1(A) 36.0 - 46.0 Platelets 397 150 - 399 10*3/UL Sodium 138 137 - 147 Potassium 4.3 3.4 - 5.5 Carbon Dioxide 22 mmol/L Anion Gap 16 <=30 MMOL/L Glucose 96 60 - 200 BUN 60(A) 4 - 21 mg/dL Creatinine 2.55(A) 0.50 - 1.10 mg/dL Calcium 9.2 8.7 - 10.7 mg/dL eGFR Non-Afr Syrian 18 Vitamin D, 1,25-Dihydroxy 77.1 pg/mL 10/10/2024 Historical Provider LAB BLOOD ORDERABLES Uzma l Result from Last 3 Months Insurance Medicare [facility] Medicare [facility] Care Teams Jewel Corner Brushing Machine Operator Relationship Specialty Start Date End Date Lucas Moore MD [facility] MD [address] [place], [place] PCP - General Internal Medicine 07/27/22
--- OUTSIDE RECORDS SUMMARY | 2024-10-29 07:13 | XMS_ITS | Clinical Summary ---
Author Organization [facility] Address [address] [place] [address] Care Team Providers Care Scientific Diver Name Role Phone Unavailable Primary Care Provider [...]
--- OUTSIDE RECORDS SUMMARY | 2024-10-29 07:13 | XMS_ITS | Encounter Summary ---
Author Organization [facility] Address [address] [place] [address] Phone Care Team Providers Care Animal Sitter Name Role Phone Lucas Moore MD Primary Care Provider [phone] Encounter Details Date Type Department Care Team (Late st Contact Info) Description 09/01/2022 Documentation Only [facility] [address] [address] [address] [facility] [address] [place] [phone] Feli Torres [place] Social History Tobacco Use Types Packs/Day [...] as of this encounter Plan of Treatment Upcoming Encounters Date Type Department Care Team (Late st Contact Info) Description 11/21/2024 3:15 PM EDT Office Visit [facility] [address] [facility] [address] [place] [address] Cindy Benito ARNP [address] [facility] [address] [place] [address] documented as of this encounter Visit Diagnoses Not on filedocumented in this encounter Care Teams Animal Sitter Relationship Specialty Start Date End Date Lucas Moore MD [facility] [address] [place] PCP - General Internal Medicine 07/27/22 documented as of this encounter
== END 2024-10-26 00:01 | disposition home or self-care (01) ==
LOC: HO.MMNH2L
PROVIDERS: Visit Provider Student in an Organized Health Care Education/Training Program
DX: Z13.89 Encounter for screening for other disorder (principal)
CPT/HCPCS: 87086

== ENCOUNTER 2024-10-29 05:57 | Outpatient (REF) | payer MEDICARE, SELFPAY | END 2024-10-29 05:58 | disposition home or self-care (01) | LOC: HO.MMNH2L 05:57 | PROVIDERS: Visit Provider Student in an Organized Health Care Education/Training Program | DX: Z13.89 Encounter for screening for other disorder (principal) ==